=== PATIENT | female | born 1950 | race Caucasian/White ===

== ENCOUNTER 2020-04-24 16:35 | Outpatient (CLI) | payer MEDICARE, SELFPAY ==
--- NOTE | ~2020-04-24 | MM_ITS ---
EXAMINATION: MM screening [facility] BI w cathy HISTORY: Screening TECHNIQUE: Craniocaudal and mediolateral oblique 3-D tomosynthesis images were obtained and synthetic 2-D images were generated. CAD analysis was submitted and interpreted. COMPARISON: Comparison to multiple prior studies sequentially, with oldest reviewed study dated 12/02. BREAST PARENCHYMAL COMPOSITION: There are scattered areas of fibroglandular density. FINDINGS: There is no evidence of suspicious mass, calcification, or architectural distortion to sugg est malignancy in either breast. There has been no suspicious interval change. IMPRESSION: 1. No mammographic evidence of malignancy. 2. Recommend routine screening mammography in one year. BI-RADS Category 2: Benign finding(s). Reviewed, dictated and finalized at location A. STOCK COUNTER
== END 2020-04-24 16:36 | disposition home or self-care (01) ==
PROVIDERS: PCP Physician Assistant; Visit Provider Family Medicine
DX: Z12.31 Encounter for screening mammogram for malignant neoplasm of breast (principal)
CPT/HCPCS: 77063; 77067

== ENCOUNTER 2020-12-27 13:03 | Outpatient (CLI) | payer MEDICARE, SELFPAY ==
--- NOTE | ~2020-12-27 | CT_ITS ---
EXAMINATION: CT lung screening DATE: 12/27/2020 13:24 INDICATION: Personal history of nicotine dependence, current smoker with 30 pack year history TECHNIQUE: Computed tomography (CT) of the chest was performed without intravenous contrast. The dose -length product (DLP) was 304.99 mGy-cm. Automated exposure control and iterative reconstruction tech monEchelle were employed. COMPARISON: None FINDINGS: There is mild emphysema. There are small pulmonary nodules, the largest of which measures 5 mm in the right lower lobe on image 65. There is dependent atelectasis. No focal airspace opacities are identified. There is no pleural effusion or pneumothorax. Calcified coronary artery atheroscleros is is noted. No pathologically enlarged thoracic lymph nodes are identified. The heart size is normal . There is moderate thoracic spondylosis. IMPRESSION: 1. Lung-RADS category 2: Benign appearance or behavior. Continue annual screening with noncontrast lo w-dose chest CT in 12 months. Reviewed, dictated and finalized at location A. IMPRESSION: 1. Lung-RADS category 2: Benign appearance or behavior. Continue annual screeni ng with noncontrast low-dose chest CT in 12 months.
== END 2020-12-27 13:04 | disposition home or self-care (01) ==
PROVIDERS: PCP Family Medicine; Visit Provider Family Medicine
DX: Z12.2 Encounter for screening for malignant neoplasm of respiratory organs (principal); Z87.891 Personal history of nicotine dependence
CPT/HCPCS: 71271

== ENCOUNTER 2022-02-16 14:29 | Outpatient (CLI) | payer MEDICARE, SELFPAY ==
--- NOTE | 2022-02-17 14:16 | P.PCNPFT_ITS ---
PFT Procedure Performed PFT Procedure Performed Plethysmography (Lung Vol) Diffusing Cap (DLCO) Flow Vol Loop Spirometry w/o Bronchodil PFT Interpretation Lung volumes were measured with the body plethysmography method. The elevated FRC and RV are indicative of air trapping. Spirometry showed diminished exp iratory flow rates and a diminished FEV1 to FVC ratio 58%, indicative of obstructive airway disease. No post bronchodilator study carried out. Lung diffusion capacity is moderately reduced at 44% predicted. The flow volume loop is consistent with obstructive airway disease. Impression: Moderate obstructive airway disease with evidence of air trapping. Moderately reduced lung diffusion capacity.
== END 2022-02-16 14:30 | disposition home or self-care (01) ==
PROVIDERS: PCP Family Medicine; Visit Provider Family Medicine
DX: R06.09 Other forms of dyspnea (principal); J44.9 Chronic obstructive pulmonary disease, unspecified; R94.2 Abnormal results of pulmonary function studies
CPT/HCPCS: 94375; 94726; 94729

== ENCOUNTER 2022-02-20 13:17 | Inpatient (IN) | payer MEDICARE, SELFPAY ==
[2022-02-20] VITALS (118 sets, daily range): BP systolic 44–138; BP diastolic 24–97; PULSE 70–112; RESP 14–37; TEMP 36.3; O2SAT 75–100; BMI 33.7
--- NOTE | ~2022-02-20 | US_ITS ---
EXAMINATION: US abdomen limited DATE: 02/22/2022 07:56 INDICATION: Right upper quadrant pain TECHNIQUE: Multiple grayscale and Doppler ultrasound images of the abdomen were obtained. COMPARISON: None available FINDINGS: Bowel gas obscures visualization of the pancreas. The visualized portions of the pancreas a re unremarkable. The liver is normal with normal echogenicity and echotexture. No surface nodularity. Normal hepatopetal flow in the main portal vein. Stones or sludge are present in the gallbladder. Th ere is mild gallbladder wall thickening which measures up to 6 mm. No pericholecystic fluid is identi fied. The normal common bile duct measures 4 mm. There was no sonographic Reyes sign. IMPRESSION: 1. Sludge or stones in the gallbladder with mild gallbladder wall thickening and no additional signs of cholecystitis. Consider nuclear hepatobiliary scan. Reviewed, dictated and finalized at location A. OW AND SIDING CRAFTSMAN IMPRESSION: 1. Sludge or stones in the gallbladder with mild gallbladder wall thickening an d no additional signs of cholecystitis. Consider nuclear hepatobiliary scan.
--- NOTE | ~2022-02-20 | US_ITS ---
EXAMINATION: US renal BI DATE: 02/21/2022 09:12 INDICATION: Acute kidney injury TECHNIQUE: Multiple grayscale and Doppler ultrasound images of the kidneys were obtained. COMPARISON: None. FINDINGS: The right kidney measures 7.9 x 3.9 x 4.5 cm. The left kidney measures 13.0 x 4.7 x 6.9 cm. The kidneys demonstrate normal parenchymal echogenicity. There is no hydronephrosis. The bladder is not distended. IMPRESSION: 1. Moderate atrophy of the right kidney. Reviewed, dictated and finalized at location A. NE SETTER
--- NOTE | ~2022-02-20 | CT_ITS ---
EXAMINATION: CT cervical spine wo con DATE: 02/20/2022 17:16 INDICATION: Fall. TECHNIQUE: Computed tomography (CT) of the cervical spine was performed without intravenous contrast. Automated exposure control and iterative reconstruction technique were employed. The dose-length pro duct was 574.20 mGy-cm. COMPARISON: None FINDINGS: The lung apices demonstrate mild emphysema and mild atelectasis. There is 8 degrees dextroc urvature of cervical spine. There is kyphosis of cervical spine. There is 2 mm retrolisthesis of C5 o n C6. Vertebral body heights are normal. There is moderately decreased disc height at C3-C4, mildly d ecreased disc height at C4-C5, and severely decreased disc height at C5-C6 and C6-C7. The following d isc levels are specifically discussed: C2-C3: There is mild bilateral uncovertebral joint osteoarthritis. There is severe bilateral facet marcela int osteoarthritis. There is mild bilateral neural foraminal stenosis. There is no central canal sten osis. C3-C4: There is severe bilateral uncovertebral joint osteoarthritis. There is severe bilateral facet joint osteoarthritis. There is moderate bilateral neural foraminal stenosis. There is mild central ca nal stenosis. C4-C5: There is severe bilateral uncovertebral joint osteoarthritis. There is mild right and severe l eft facet joint osteoarthritis. There is mild right and moderate left neural foraminal stenosis. Ther e is mild central canal stenosis. C5-C6: There is severe bilateral uncovertebral joint osteoarthritis. There is severe bilateral facet joint osteoarthritis. There is moderate right and mild left neural foraminal stenosis. There is moder ate central canal stenosis. C6-C7: There is severe right and moderate left uncovertebral joint osteoarthritis. There is severe bi lateral facet joint osteoarthritis. There is mild bilateral neural foraminal stenosis. There is mild central canal stenosis. C7-T1: There is mild bilateral uncovertebral joint osteoarthritis. There is severe bilateral facet marcela int osteoarthritis. There is mild bilateral neural foraminal stenosis. There is no central canal sten osis. IMPRESSION: 1. No fracture. 2. Severe cervical spondylosis. Reviewed, dictated and finalized at location A. CTOR MARKETING ANALYTICS
--- NOTE | ~2022-02-20 | XR_ITS ---
EXAMINATION: XR chest port-a-cath/central INDICATION: Hypoxia TECHNIQUE: Portable AP chest at 1444 hours COMPARISON: 04/14/2011 FINDINGS: There are patchy opacities throughout all lung zones. No pleural effusion or pneumothorax. The cardiomediastinal silhouette is normal. A right internal jugular catheter ends with its tip in th e proximal superior vena cava. IMPRESSION: 1. Right internal jugular catheter ending in the proximal superior vena cava. No pneumothorax. 2. Diffuse lung disease, consistent with pneumonia versus atelectasis versus pulmonary edema. Reviewed, dictated and finalized at location B. ETING ACCOUNT MANAGER IMPRESSION: 1. Right internal jugular catheter ending in the proximal superior vena cava. N o pneumothorax. 2. Diffuse lung disease, consistent with pneumonia versus atelectasis versus pu lmonary edema.
--- NOTE | ~2022-02-20 | XR_ITS ---
EXAMINATION: XR chest 1V portable Exam Date/Time: 03/01/2022 8:35 SPLITTER HAND HISTORY: SOB Comparison: 02/25/2022. RESULT: Lines, tubes, and devices: Interval right IJ central line removal. Lungs and pleura: Persistent but improving diffuse reticular opacities. Minimal bibasilar atelectasi s. Senescent changes in the lungs. Cardiomediastinal silhouette: Stable. Other: No acute osseous or upper abdominal finding. IMPRESSION: Improving edema. Reviewed, dictated and finalized at location K. TTER HAND IMPRESSION: Improving edema.
--- NOTE | ~2022-02-20 | NM_ITS ---
EXAMINATION: NM hepatobiliary w pharm DATE: 02/23/2022 13:33 INDICATION: Gallbladder wall thickening. COMPARISON: Abdomen ultrasound 02/21/2022 TECHNIQUE: 5 mCi Tc-99m mebrofenin (Choletec) was administered intravenously. Scintigraphic images o f the abdomen were obtained for one hour. Then, 2.1 mcg sincalide (Kinevac) IV was administered, and imaging was continued for 30 minutes. FINDINGS: There is normal clearance of radiotracer from the blood pool. There is homogeneous tracer u ptake by the liver. Activity progresses to the bowel and gallbladder. Gallbladder ejection fraction (GBEF) was 9%. Note that most patients with gallbladder dysfunction have GBEF < 35%, which overlaps w ith the broad normal range of 10-90%. IMPRESSION: 1. Low gallbladder ejection fraction, consistent with gallbladder dysfunction and/or chronic cholecy stitis. Reviewed, dictated and finalized at location A. SEAT FLAP STAPLER IMPRESSION: 1. Low gallbladder ejection fraction, consistent with gallbladder dysfunction and/or chronic cholecystitis.
--- NOTE | ~2022-02-20 | XR_ITS ---
EXAMINATION: XR chest 1V portable INDICATION: Shortness of breath TECHNIQUE: Portable AP chest at 0753 hours COMPARISON: 02/21/2022 FINDINGS: A right internal jugular central venous catheter ends with its tip in the proximal superior vena cava. Patchy interstitial and airspace opacities are present throughout all lung zones with sli ght interval worsening. No pleural effusion or pneumothorax. The cardiomediastinal silhouette is stab le. IMPRESSION: 1. Diffuse lung disease with interval worsening, consistent with pneumonia and/or pulmonary edema. Reviewed, dictated and finalized at location A. K MACHINE OPERATOR REPAIRER IMPRESSION: 1. Diffuse lung disease with interval worsening, consistent with pneumonia and/ or pulmonary edema.
--- NOTE | ~2022-02-20 | XR_ITS ---
EXAMINATION: XR chest 1V portable INDICATION: Weakness and pneumonia, hypoxia TECHNIQUE: Portable AP chest at 0847 hours COMPARISON: 02/20/2022 FINDINGS: A right internal jugular catheter ends with its tip in the midsuperior vena cava. No pleura l effusion or pneumothorax. Patchy opacities persist throughout all lung zones with slight improvemen t. The cardiomediastinal silhouette is stable. IMPRESSION: 1. Diffuse lung disease with interval improvement, consistent with pneumonia and/or pulmonary edema. Reviewed, dictated and finalized at location A. OR DATA INTEGRATION DEVELOPER IMPRESSION: 1. Diffuse lung disease with interval improvement, consistent with pneumonia an d/or pulmonary edema.
--- NOTE | ~2022-02-20 | XR_ITS ---
EXAMINATION: XR chest 1V portable DATE: 02/25/2022 06:18 INDICATION: Hypoxia. TECHNIQUE: A single frontal view of the chest was obtained. COMPARISON: Chest single view 02/22/2022, 02/20/2022, chest CT 12/27/2020 FINDINGS: There are lucencies in the upper lungs, consistent with emphysema. There is a diffuse inter stitial pattern in the lungs, consistent with mild pulmonary edema. There is a small right pleural ef fusion. No pneumothorax. The heart size is normal. A right internal jugular central venous catheter i s seen with tip in the superior vena cava. IMPRESSION: 1. Mild pulmonary edema. 2. Small right pleural effusion. 3. Emphysema. Reviewed, dictated and finalized at location A. ER [place]
--- NOTE | ~2022-02-20 | CT_ITS ---
EXAMINATION: CT brain wo con DATE: 02/20/2022 17:16 INDICATION: Fall. TECHNIQUE: Computed tomography (CT) of the head was performed without intravenous contrast. The mA wa s adjusted according to patient size. Iterative reconstruction technique was employed. The dose-lengt h product was 832.33 mGy-cm. COMPARISON: None FINDINGS: There is an old infarct involving left parietal lobe. There is no intracranial hemorrhage, acute infarction, or abnormal intracranial mass lesion. There is old infarct in left caudate nucleus. The ventricles are normal in size. There is mild mucosal thickening in the paranasal sinuses. The ma stoid air cells are normal. There are likely changes of ocular lens replacement surgeries. IMPRESSION: 1. 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 Reviewed, dictated and finalized at location A. GHT CLERK
--- NOTE | 2022-02-20 13:34 | ECG_ITS ---
Measurements Intervals [place] Rate: 86 P: 72 SD: 283 QRS: 70 QRSD: 97 T: 55 QT: 397 QTc: 476 Interpretive Statements SINUS RHYTHM WITH FIRST DEGREE AV BLOC INCOMPLETE RIGHT BUNDLE BRANCH BLOCK BORDERLINE ST ABNORMALITY- ANTEROLATERAL LEADS BASELINE ARTIFACT- I, II, III, AVR, AVL ABNORMAL ECG NO PREVIOUS ECG AVAILABLE FOR COMPARISON Electronically Signed On 02-20-2022 16:22:48 GLASS MAKER by John Sherman D.O.
--- NOTE | 2022-02-20 13:37 | ED.WEAKNESS ---
HPI - Weakness General Chief complaint: Weakness Stated complaint: gen weakness, sob, decrease po intake History of Present Illness HPI Narrative: This is a 71-year-old female with past medical history of carotid artery stenosis, brought in by EMS for weakness. Patient states she has felt generally weak for the past 2 days without chest pain or focal weakness of an arm or leg. She complains of shortness of breath and intermittent cough productive of mucus without blood. She states she rolled out of bed and was unable to get up from the floor several hours ago. She states she is vaccinated for COVID and flu and has had no known sick contacts. Related Data Home Medications Medication Instructions Recorded Confirmed glucosamine sulfate 2KCl 1,000 mg 1,000 mg PO BID 02/19/20 02/04/22 capsule ibuprofen 200 mg tablet (Advil) 200 mg PO Q6H PRN 02/19/20 02/04/22 glucosamine-chondroitin 250 mg-200 2 tablet PO TID 06/27/20 02/04/22 mg tablet (Osteo Bi-Flex) docusate sodium 50 mg capsule 50 mg PO DAILY 02/04/22 02/04/22 (Stool Softener) Allergies Allergy/AdvReac Type Severity Reaction Status Date / Time No Known Allergies Allergy Verified 02/20/22 13:34 Review of Systems Review of Systems: CONSTITUTIONAL: Subjective fevers and chills denies sweats. EYES: Denies visual changes, redness, or discharge. ENT: rhinorrhea, Denies congestion, sore throat, or otalgia. CARDIOVASCULAR: Denies chest pain, palpitations, or edema. RESPIRATORY: cough and dyspnea. GASTROINTESTINAL: Denies abdominal pain, nausea, vomiting, or diarrhea. GENITOURINARY: Denies dysuria or hematuria. SKIN: Denies rash or itching. MUSCULOSKELETAL: Generalized myalgias denies back pain, joint pain NEUROLOGIC: Generalized weakness denies headache, numbness, dizziness PSYCHIATRIC: Denies anxiety or depression. 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 Depression Diabetes mellitus Hx-TIA (transient ischemic attack) Hypercholesterolemia Hypertension Hyponatremia Obesity (BMI 30-39.9) ELEANOR (obstructive sleep apnea) Osteopenia Smoker Urinary, incontinence, stress female Surgical History Surgical History History of appendectomy History of cataract extraction both History of left-sided carotid endarterectomy 2000 Family History Family History Father Family history of heart disease in male family member before age 55 Other Cerebrovascular accident Family history of coronary artery disease Family history of lung cancer Social History Social History Smoking status: Current every day smoker (1ppd for 23 years) Tobacco type: cigarettes Second hand tobacco smoke exposure: Yes Alcohol intake: never Substance use: never Substance use type: does not use Gender identity (if verbalized by the patient): Female Sexual Orientation (if Verbalized by the Patient): Straight or Heterosexual Spiritual care concerns: Yes (Buddhist) Agree to blood products: Yes Exam Narrative: GENERAL: Well-developed, well-nourished, appears fatigued. HEAD: Normocephalic, atraumatic. EYES: PERRLA and EOMI. ENT: Nares clear, no rhinorrhea or epistaxis. Mucous membranes dry. Oropharynx without tonsillar hypertrophy exudate or other lesions. NECK: Supple. No adenopathy or masses. No carotid bruits or JVD CHEST: Expiratory wheeze bilaterally. No respiratory distress. No rales or rhonchi HEART: Regular rate and rhythm. No murmur heard. Normal peripheral pulses. ABDOMEN: Soft, umbilical hernia with normal overlying skin, nontender, nondistended, normal active bowel sounds. EXTREMITIES: Normal range of motion. No stacy
[2022-02-20] MEDS: ALBUTEROL SULFATE NEB 2.5 MG/3 ML INH 5 MG INHALATION (13:53)
[2022-02-20 14:09] LABS: Basophils Absolute Auto 0.1 K/mm3 (0.0-0.1); Basophils Percent Auto 0.4 % (0.2-1.2); Eosinophils Absolute Auto 0.2 K/mm3 (0-0.3); Hematocrit 42.7 % (37.0-47.0); Hemoglobin 13.4 g/dL (12.0-15.0); Immature Granulocyte Absolute 0.62 K/mm3 (0.00-0.031); Lymphocytes Absolute Auto 0.75 K/mm3 (0.9-3.2); Lymphocytes Percent Auto 3.6 % (18.3-44.2); Mean Corpuscular HGB Conc 31.4 g/dl (32-36); Mean Corpuscular Hemoglobin 24.6 pg (26-34); Mean Corpuscular Volume 78.3 fl (80-100); Mean Platelet Volume 9.1 fl (7.4-10.4); Monocytes Absolute Auto 1.3 K/mm3 (0.1-0.6); Monocytes Percent Auto 6.3 % (2.6-8.5); Neutrophils Absolute Auto 17.7 K/mm3 (1.3-6.7); Neutrophils Percent Auto 85.7 % (45.5-73.1); Platelet Count Result 338 k/mm3 (150-375); Red Blood Count 5.45 M/mm3 (4.2-5.4); Red Cell Distribution Width 18.5 % (11.5-14.5); White Blood Count 20.7 K/mm3 (4.5-10.0)
[2022-02-20 14:19] LABS: Lactic Acid Reflex 3.5 mmol/L (0.7-2.0)
[2022-02-20 14:20] LABS: Alanine Aminotransferase 23 U/L (6-35); Alkaline Phosphatase 91 U/L (38-126); Anion Gap 14 mmol/L (8-16); Aspartate Amino Transferase 58 U/L (14-36); Bilirubin,Total 0.8 mg/dL (0.2-1.3); Blood Urea Nitrogen 25 mg/dL (7-17); Calcium 9.1 mg/dL (8.4-10.2); Carbon Dioxide 19 mmol/L (22-30); Chloride 96 mmol/L (98-107); Creatine Kinase 1305 U/L (30-135); Estimated CRCL calculation 19 ml/min; Estimated Glomerular Filt Rate 15; Glucose 114 mg/dL (65-110); Potassium 3.4 mmol/L (3.4-5.0); Sodium 129 mmol/L (137-145)
[2022-02-20] MEDS: NOREPINEPHRINE 8 MG/D5W 250 ML 8 MG/250 ML BAG 1.88 MG IV CONT (14:50)
[2022-02-20] MEDS: SODIUM CHLORIDE 0.9% IV 1,000 ML 999 ML IV CONT ×2 (15:00→15:12)
[2022-02-20] MEDS: VASOPRESSIN INJ 100 UNITS in DEXTROSE 5% 95 ML IV CONT (15:38)
[2022-02-20 15:54] LABS: Influenza A QL RT-PCR Negative (Negative); Influenza B QL RT-PCR Negative (Negative); SARS-CoV-2 RNA PCR Negative
--- NOTE | 2022-02-20 16:59 | PC.NURSE ---
Patient off unit to CT. BP consistently greater than 90 systolic.
[2022-02-20 17:05] LABS: Reflex Lactic Acid Yes or No Add Lactic
[2022-02-20 18:47] LABS: Appearance Urine Cloudy (Clear); Bilirubin Urine Negative (Negative); Blood Urine 3+ (Negative); Color Urine Yellow (Yellow); Glucose Urine UA Negative (Negative); Ketones Urine Negative (Negative); Leukocyte Esterase Ur 3+ LEU/UL (Negative); Nitrate Urine Negative (Negative); Protein Urine 3+ mg/dL (Negative); Specific Grav Ur 1.015 (1.001-1.035); Urobilinogen Urine 0.2 mg/dL (<2.0)
[2022-02-20 18:53] LABS: Bacteria Urine Trace /hpf; Hyaline Casts Urine 15-19 /lpf; Mucus Urine Rare /lpf; RBC Urine 51-75 /hpf (0-2); WBC Clumps Urine Present /HPF; WBC Urine >75 /hpf
[2022-02-20 18:54] LABS: Lactic Acid 3.2 mmol/L (0.7-2.0)
[2022-02-20 18:59] LABS: Add Urine Microscopic? YES
--- NOTE | 2022-02-20 20:51 | PM.IMHP ---
H&P: HPI History of Present Illness Date/Time: 02/20/22 20:51 Chief Complaint: Weakness Narrative: This is a 71-year-old female patient who was brought in for generalized weakness and shortness of breath as well as the decreased oral intake. The patient has been feeling weak for the last 2 days. She has had a cough. The patient rolled out of bed was unable to get up off the floor for several hours. Her white count was 20.7. Sodium 129. Chloride 96. BUN and creatinine 25 and 3.0. Her GFR is 15. Her baseline is typically 1.13. Her lactic initially was 3.5 and is now 3.2. Total creatinine kinase 1305. Troponin 5.490 and repeat troponin 2.460. Her urine appears infected. She was negative for influenza A/B and COVID. A central line was placed in the emergency room. She was started on Levophed as well as vasopressor. The patient was given 3 L of IV fluids. Azithromycin and Rocephin. The patient is awake and talking. Director Federal has been consulted. And cardiology has been consulted for the elevated troponins. EKG was read as the following SINUS RHYTHM WITH FIRST DEGREE AV BLOC INCOMPLETE RIGHT BUNDLE BRANCH BLOCK BORDERLINE ST ABNORMALITY- ANTEROLATERAL LEADS BASELINE ARTIFACT- I, II, III, AVR, AVL ABNORMAL ECG NO PREVIOUS ECG AVAILABLE FOR COMPARISON Electronically Signed On 02-20-2022 16:22:48 OTOLARYNGOLOGIST by John Sherman? Cervical spine CT read as no fracture. Severe cervical spondylosis. 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 Chest x-ray shows right internal jugular catheter ending in the proximal superior vena cava. No pneumothorax. Diffuse lung disease consistent with pneumonia versus atelectasis versus pulmonary edema. The patient is being admitted to ICU as inpatient status date of service is 02/20/2022. Review of Systems Review of Systems: See HPI All systems reviewed & are unremarkable except as noted in HPI and below Constitutional: Constitutional: Reports as per HPI and Reports no additional constitutional complaints Eyes: Eyes: Reports as per HPI and Reports no additional eye complaints ENT: Reports system reviewed and no additional complaints, except as documented and Reports Normal hearing present Cardiovascular: Cardiovascular: Reports no additional cardiovascular complaints Respiratory: Respiratory: Reports no additional respiratory complaints and Reports no additional respiratory complaints Gastrointestinal: Gastrointestinal: Reports as per HPI and Reports no additional gastrointestinal complaints Musculoskeletal: Musculoskeletal: Reports no additional musculoskeletal complaints Integumentary/Breasts: Skin/Breast: Reports system reviewed and no additional complaints, except as docu and Reports as per HPI Neurologic: Reports system reviewed and no additional complaints, except as documented, Reports as per HPI and Reports Normal hearing present Psychiatric: Psychiatric: Reports no additional psychiatric complaints and Reports as per HPI Endocrine: Endocrine: Reports no additional endocrine complaints Hematologic/Lymphatic: Hematologic/Lymphatic: Reports no additional hematologic/lymphatic complaints Allergic/Immunologic: Allergic/Immunologic: Reports no additional allergic/immunologic complaints [facility] Past Medical History Medical History Anxiety Carotid arterial disease Chronic renal insufficiency, stage III (moderate) 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
--- NOTE | 2022-02-20 21:45 | ADMGEN ---
This patient, Cassidy Paris, was admitted to Intensive Care Unit-3. Patient/family oriented to hospital policies and general routines including ID bracelet, bed and alarms, visiting hours, pain management, procedures, bathroom and other care routines, personal items, smoking policy, room service/diet, and visiting hours. Information on how to activate the Rapid Response Team has been discussed. Patient/Family are encouraged to report perceived risks to care and to ask questions if they do not understand what they are told or what they should do.
[2022-02-21] VITALS (84 sets, daily range): BP systolic 85–142; BP diastolic 37–94; PULSE 80–110; RESP 18–38; TEMP 36.4–36.9; O2SAT 74–100
--- NOTE | 2022-02-21 | ECHO_ITS ---
Patient Info Name: Cassidy Paris Age: 71 years : 1950 Gender: Female Ht: 67 in Wt: 217 lbs BSA: 2.19 m2 HR: 88 bpm BP: 102 / 45 mmHg Heart Rhythm: Sinus Rhythm Technical Quality: Poor Exam Date: 02/21/2022 10:36 AM Exam Location: [facility] Pulmonary Exam Room: ICU3 Patient Status: Inpatient Admit Date: 02/20/2022 Staff Ordering Physician: Howard Kern MD Building Estimator: Janice Guevara RDCS Attending Provider: Karime Burrell MD Exam Type: CA echo dop color flow w con Study Info Complete two-dimensional, color flow and Doppler transthoracic echocardiogram is performed with contrast to opacify the left ventricle and to improve the deliniation of the left ventricle endocardial borders. Contrast/Agitated Saline Contrast/Ag. Saline: Definity Amount: 2.00 ml Administered By: Janice Guevara [facility] Existing IV Access: Yes IV Access Condition: patent with no signs of infiltration Reason for Poor Study: patient body habitus Summary 1. Technically difficult this examination because of patient obesity/definity contrast used. 2. Vigorous left ventricular systolic function with grade 1 diastolic noncompliance. 3. No ischemic wall motion abnormalities were identified. 4. Mildly sclerotic aortic valve which is not stenotic. Left Ventricle Left ventricular chamber dimension is normal. Left ventricular systolic function is hyperdynamic, estimated at >70%. There is mild concentric increased left ventricular wall thickness. The left ventricular diastolic function is grade I diastolic dysfunction. Right Ventricle Right ventricular chamber dimension is normal. Left Atria Left atrial chamber dimension is mildly enlarged. Right Atria Right atrial chamber dimension is not well visualized. Aortic Valve The aortic valve is trileaflet. There is mild aortic valve sclerosis. Pulmonic Valve The pulmonic valve is not well visualized. Mitral Valve The mitral valve has normal leaflets. Tricuspid Valve The tricuspid valve leaflets are not well visualized. Pericardium/Pleural The pericardium appears normal. Aorta The aortic root size at the sinus of Valsalva is normal. Left Ventricular Outflow Tract Name Value Normal LVOT 2D LVOT Diameter 2.08 cm LVOT Doppler LVOT Peak Gradient 7 mmHg LVOT Mean Gradient 5 mmHg LVOT VTI 24.90 cm LVOT VTI/AV VTI Ratio 0.62 LVOT Stroke Volume 84.44 ml LVOT CO 20.96 l/min LVOT CI 9.56 L/min/m2 Pulmonic Valve Name Value Normal PV Doppler PV Peak Gradient 3 mmHg Mitral Valve
[2022-02-21] MEDS: SODIUM CHLORIDE 0.9% IV 1,000 ML 999 ML IV CONT (00:17)
[2022-02-21] MEDS: SODIUM CHLORIDE 0.9% IV 1,000 ML 100 ML IV CONT ×2 (00:17→13:01)
[2022-02-21] MEDS: IPRATROPIUM BR 0.02% INH SOLN 0.5 MG/2.5 ML VIAL INHALATION ×4 (03:23→20:50)
[2022-02-21] MEDS: ALBUTEROL SULFATE NEB 2.5 MG/3 ML INH INHALATION ×4 (03:24→20:50)
[2022-02-21 04:39] LABS: Hematocrit 35.1 % (37.0-47.0); Hemoglobin 11.3 g/dL (12.0-15.0); Mean Corpuscular HGB Conc 32.2 g/dl (32-36); Mean Corpuscular Hemoglobin 24.7 pg (26-34); Mean Corpuscular Volume 76.8 fl (80-100); Platelet Count Result 257 k/mm3 (150-375); Red Blood Count 4.57 M/mm3 (4.2-5.4); Red Cell Distribution Width 17.9 % (11.5-14.5)
[2022-02-21 04:52] LABS: Alanine Aminotransferase 28 U/L (6-35); Albumin Level 3.1 g/dL (3.5-5.1); Alkaline Phosphatase 79 U/L (38-126); Anion Gap 9 mmol/L (8-16); Aspartate Amino Transferase 113 U/L (14-36); Bilirubin,Total 0.5 mg/dL (0.2-1.3); Blood Urea Nitrogen 30 mg/dL (7-17); Calcium 7.8 mg/dL (8.4-10.2); Carbon Dioxide 18 mmol/L (22-30); Chloride 101 mmol/L (98-107); Estimated CRCL calculation 20 ml/min; Estimated Glomerular Filt Rate 17; Glucose 128 mg/dL (65-110); Magnesium 1.7 mg/dL (1.6-2.3); Potassium 3.9 mmol/L (3.4-5.0); Sodium 128 mmol/L (137-145)
[2022-02-21 04:56] LABS: Hemoglobin A1C 6.8 % (<5.7)
[2022-02-21 04:57] LABS: Lactic Acid Reflex 1.3 mmol/L (0.7-2.0)
[2022-02-21 05:21] LABS: Platelet Estimate Adequate (Adequate)
[2022-02-21 05:22] LABS: Burr Cells 1+ (NORMAL); Hypochromasia 1+ (NORMAL); Microcytosis 1+ (NORMAL); Schistocytes None Seen (NORMAL)
[2022-02-21 05:23] LABS: Anisocytosis 1+ (NORMAL); Band Neutrophils Percent 17 % (0-6); Lymphocytes Absolute Manual 0.44 K/mm3 (1.1-4.5); Lymphocytes Percent Manual 2 % (18-44); Monocytes Percent Manual 5 % (3-9); Neutrophils Absolute Manual 20.46 K/mm3 (1.7-7.2); Neutrophils Percent Manual 76 % (46-73); Total Cells Counted 100
[2022-02-21 08:25] LABS: Glucose Point of Care 156 mg/dl (65-105)
--- NOTE | 2022-02-21 09:21 | WPDCNINT ---
Assessment and Plan Assessment and plan (1) Septic shock: Code(s): A41.9 - Sepsis, unspecified organism; R65.21 - Severe sepsis with septic shock Status: Acute Assessment and Plan: Septic shock secondary to UTI and possible community-acquired pneumonia Urine and blood cultures have been sent Check urine Legionella pneumococcal antigen Check mycoplasma IgM Continue empiric vancomycin Rocephin and azithromycin Continue Levophed titration Add 25% albumin Continue IV fluids at this time but will limit to prevent any volume overload Obtain echocardiogram Check BNP level (2) Pneumonia: Code(s): J18.9 - Pneumonia, unspecified organism Status: Acute Assessment and Plan: See above (3) Urinary tract infection: Code(s): N39.0 - Urinary tract infection, site not specified Status: Acute Assessment and Plan: See above (4) Acute kidney injury: Code(s): N17.9 - Acute kidney failure, unspecified Status: Acute Assessment and Plan: Patient has baseline chronic kidney disease but presented elevated creatinine which is likely combination of septic shock, hypovolemia rhabdomyolysis and possible secondary to NSAIDs Check urine electrolytes Monitor CK level Renal ultrasound is pending Continue cautious IV fluids Monitor urine output electrolytes and creatinine (5) Chronic renal insufficiency, stage III (moderate): Code(s): N18.30 - Chronic kidney disease, stage 3 unspecified Status: Acute Assessment and Plan: See above (6) Elevated troponin: Code(s): R77.8 - Other specified abnormalities of plasma proteins Status: Acute Assessment and Plan: Elevated troponin likely demand mediated ischemia with elevated creatinine Troponins are trending down EKG reviewed Cardiology has been consulted Check echocardiogram Continue aspirin and Plavix Add Lipitor (7) Tobacco abuse: Code(s): Z72.0 - Tobacco use Status: Acute Assessment and Plan: Patient was counseled and encouraged to quit smoking (8) Fall: Code(s): W19.XXXA - Unspecified fall, initial encounter Status: Acute Assessment and Plan: Head CT 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 CT C-spineIMPRESSION: 1. No fracture. 2. Severe cervical spondylosis. (9) COPD exacerbation: Code(s): J44.1 - Chronic obstructive pulmonary disease with (acute) exacerbation Status: Acute Assessment and Plan: On exam patient is wheezing on both sides. She does have history of smoking and likely has COPD Continue bronchodilators Short course of prednisone Antibiotics as above (10) Abdominal pain: Code(s): R10.9 - Unspecified abdominal pain Status: Acute Assessment and Plan: Patient tender right upper quadrant exam although she denies any abdominal pain prior to coming to the hospital LFTs unremarkable Check lipase Check upper quadrant ultrasound (11) Diabetes mellitus: Code(s): E11.9 - Type 2 diabetes mellitus without complications Status: Acute Assessment and Plan: Sliding scale insulin Plan DVT prophylaxis - Lovenox Nutrition -diet Code Status - Full Code Total Critical Care Time - 35 minutes Due to a high probability of clinically significant, life threatening deterioration, the patient required my highest level of preparedness to intervene emergently and I personally spent this critical care time directly and personally managing the patient. This critical care time included obtaining a history; examining the patient; pulse oximetry; ordering and review of studies; arranging urgent treatment with development of a management plan; evaluation of patient's response to treatment; frequent reassessment; and discussions with other providers. It was exclusive of separately billable procedures and treating other patients and teaching time. Please see Assessment and Plan sect
[2022-02-21] MEDS: TOLNAFTATE 1% POWDER 45 GM BTL 1 APPLIC TOPICAL ×2 (09:23→20:22)
[2022-02-21] MEDS: SERTRALINE HCL 50 MG TABLET 100 MG PO (09:23)
[2022-02-21] MEDS: NICOTINE (*PBKC) 14 MG PATCH 1 PATCH TRANSDERM (09:23)
[2022-02-21] MEDS: BETAMETHASONE/CLOTRIMAZOLE CR 15 GM TUBE 1 APPLIC TOPICAL ×2 (09:23→17:03)
[2022-02-21] MEDS: CLOPIDOGREL BISULFATE 75 MG TABLET PO (09:23)
[2022-02-21] MEDS: ASPIRIN 81 MG ENTERIC TABLET PO (09:24)
[2022-02-21] MEDS: CALCIUM GLUC 2,000 MG/NS 100ML 2,000 MG/100 ML BAG 100 MG IVPB (09:27)
[2022-02-21 10:40] LABS: Lipase < 10 U/L (23-300)
[2022-02-21 10:45] LABS: NT Pro B Type Natriuretic Pept 15800 pg/mL (5-100)
[2022-02-21] MEDS: PERFLUTREN LIPID MICROSPHERES 1.5 ML VIAL DILUTED TO 10 ML TOTAL VOLUME IV PUSH (11:00)
--- NOTE | 2022-02-21 11:01 | IVDEFINITY ---
Prior to administration of IV Definity the patient was educated on the risks and benefits of the imaging enhancing agent including potential adverse side effects. The patient verbalized understanding. Allergies were verified. No exclusion criteria were identified and at least one of the following inclusion criteria were met: 1) physician request, 2) patient technically difficult to image (per the [place] [employer] guidelines of two or more segments not discernable within the apical view), or 3) questionable left ventricular function. ?
--- NOTE | 2022-02-21 12:21 | PM.CNNEP ---
Assessment and Plan Assessment and plan (1) Acute kidney injury: Code(s): N17.9 - Acute kidney failure, unspecified Status: Acute Assessment and Plan: likely due to sepsis, shock, hypovolemia, rhabdo, and high dose NSAID use if an element of AIN, already getting steroids (for her suspected COPD) follow-up on urine electrolytes and CKP levels check urine eosinophils follow-up on renal ultrasound IVF trial but follow UOP and respiratory status follow repeat labs (2) Stage 3a chronic kidney disease: Code(s): N18.31 - Chronic kidney disease, stage 3a Status: Chronic Assessment and Plan: creatinine seems to run ~ 1.0 - 1.2mg/dl since March 2020 likely due to HTN, diabetes, vascular disease, age, and recurrent UTIs (3) Septic shock: Code(s): A41.9 - Sepsis, unspecified organism; R65.21 - Severe sepsis with septic shock Status: Acute Assessment and Plan: presumably from UTI and possibly pneumonia follow urine and blood cultures on empiric antibiotics fluid resuscitation as tolerated by respiratory status continue vasopressor therapy and wean as tolerated (4) COPD exacerbation: Code(s): J44.1 - Chronic obstructive pulmonary disease with (acute) exacerbation Status: Acute Assessment and Plan: suspected by wheezing on exam and smoking history on bronchodilators and prednisone already on antibiotics as well (5) Elevated troponin: Code(s): R77.8 - Other specified abnormalities of plasma proteins Status: Acute Assessment and Plan: most likely secondary to shock and sepsis in setting of JUVENAL however, cannot discount ischemic heart disease follow-up on Echo Cardiology consulted (6) Fall: Code(s): W19.XXXA - Unspecified fall, initial encounter Status: Acute Assessment and Plan: imaging noted Head CT without an acute pathology CT C-spine without fractures PT/OT when more stable . (7) Diabetes mellitus: Code(s): E11.9 - Type 2 diabetes mellitus without complications Status: Acute Assessment and Plan: follow accucheks glycemic control Will continue to follow. History of Present Illness Reason for Consult Consult date: 02/21/22 Reason for consult: acute renal failure (on chronic kidney disease) Chief Complaint Chief complaint: Pneumonia, sepsis History of Present Illness Narrative: The patient is a 71-year-old female with a past medical history as outlined below who presented to [facility] Emergency room yesterday for further evaluation of weakness. The patient apparently lost her balance and fell out of bed but did not lose consciousness. She did feel dizzy for last few days prior to this event however. After she had the fall, she was unable to get up from the floor. Her family tried to his sister but with difficulty so they called 911 for further assistance and she was subsequently brought to the emergency room for further assessment. Workup and evaluation emergency room demonstrated the patient be quite hypotensive. She was given aggressive IV fluid resuscitation but her blood pressure did not respond and hence a central line was placed and she was started on vasopressor therapy. Appropriate cultures were obtained on the concerns of possible sepsis and she was started on broad-spectrum IV antibiotic therapy. Upon further questioning to the patient, she also reports some mild cough with minimal sputum production but no reported fevers or chills. She did also state that she has had some burning with urination but no change in her urine output. She had been taking significant NSAID therapy for her degenerative joint disease/ arthritis as well. She was subsequently admitted to the ICU for further evaluation and therapy. Since her admission, the patient reports feeling significantly better. She had been on both Levophed as well as the vasopre
--- NOTE | 2022-02-21 12:21 | P.CONNP_ITS ---
Assessment and Plan Assessment and plan (1) Acute kidney injury: Code(s): N17.9 - Acute kidney failure, unspecified Status: Acute Assessment and Plan: * likely due to sepsis, shock, hypovolemia, rhabdo, and high dose NSAID use * if an element of AIN, already getting steroids (for her suspected COPD) * follow-up on urine electrolytes and CKP levels * check urine eosinophils * follow-up on renal ultrasound * IVF trial but follow UOP and respiratory status * follow repeat labs (2) Stage 3a chronic kidney disease: Code(s): N18.31 - Chronic kidney disease, stage 3a Status: Chronic Assessment and Plan: * creatinine seems to run ~ 1.0 - 1.2mg/dl since March 2020 * likely due to HTN, diabetes, vascular disease, age, and recurrent UTIs (3) Septic shock: Code(s): A41.9 - Sepsis, unspecified organism; R65.21 - Severe sepsis with septic shock Status: Acute Assessment and Plan: * presumably from UTI and possibly pneumonia * follow urine and blood cultures * on empiric antibiotics * fluid resuscitation as tolerated by respiratory status * continue vasopressor therapy and wean as tolerated (4) COPD exacerbation: Code(s): J44.1 - Chronic obstructive pulmonary disease with (acute) exacerbation Status: Acute Assessment and Plan: * suspected by wheezing on exam and smoking history * on bronchodilators and prednisone * already on antibiotics as well (5) Elevated troponin: Code(s): R77.8 - Other specified abnormalities of plasma proteins Status: Acute Assessment and Plan: * most likely secondary to shock and sepsis in setting of JUVENAL * however, cannot discount ischemic heart disease * follow-up on Echo * Cardiology consulted (6) Fall: Code(s): W19.XXXA - Unspecified fall, initial encounter Status: Acute Assessment and Plan: * imaging noted * Head CT without an acute pathology * CT C-spine without fractures * PT/OT when more stable . (7) Diabetes mellitus: Code(s): E11.9 - Type 2 diabetes mellitus without complications Status: Acute Assessment and Plan: * follow accucheks * glycemic control Will continue to follow. History of Present Illness Reason for Consult Consult date: 02/21/22 Reason for consult: acute renal failure (on chronic kidney disease) Chief Complaint Chief complaint: Pneumonia, sepsis History of Present Illness Narrative: The patient is a 71-year-old female with a past medical history as outlined below who presented to [facility] Emergency room yesterday for further evaluation of weakness. The patient apparently lost her balance and fell out of bed but did not lose consciousness. She did feel dizzy for last few days prior to this event however. After she had the fall, she was unable to get up from the floor. Her family tried to his sister but with difficulty so they called 911 for further assistance and she was subsequently brought to the emergency room for further assessment. Workup and evaluation emergency room demonstrated the patient be quite hypotensive. She was given aggressive IV fluid resuscitation but her blood pressure did not respond and hence a central line was placed and she was started on vasopressor therapy. Appropriate cultures were obtained on the concerns of possible sepsis and she was started on broad-spectrum IV antibiotic therapy. Upon further questioning to the patient, she also reports some mild cough with minimal sputum production but no reported
[2022-02-21 12:31] LABS: Glucose Point of Care 175 mg/dl (65-105)
[2022-02-21] MEDS: methylPREDNISolone SOD SUCC 125 MG VIAL 60 MG IV PUSH (13:00)
[2022-02-21] MEDS: ATORVASTATIN 10 MG TABLET PO (13:00)
[2022-02-21] MEDS: ALBUMIN HUMAN 25% 25 GM/100 ML 100 ML IVPB ×2 (13:03→17:03)
--- NOTE | 2022-02-21 13:23 | PM.CNCAR ---
Assessment and Plan Assessment and plan (1) Septic shock: Code(s): A41.9 - Sepsis, unspecified organism; R65.21 - Severe sepsis with septic shock Status: Acute (2) Elevated troponin: Code(s): R77.8 - Other specified abnormalities of plasma proteins Status: Acute Plan this is a 71-year-old woman known to have peripheral vascular disease admitted to the hospital with severe weakness inability to get up off the floor irnee hypotension and clinical diagnosis of sepsis. She has acute on chronic renal failure and significantly elevated troponin levels but no symptoms or ECG findings to be consistent with an acute coronary syndrome. She is currently being treated with aspirin clopidogrel and statin therapy which is appropriate. She hemodynamically she it at this time cannot receive a beta-reyes or an ARB. We will follow her with you and depending on her recovery and recovery of her renal function we will need to consider ischemia evaluation when she is more stable to undergo testing. Echocardiogram was appropriately done earlier today results of that are pending. Shiva Marie MD [facility] History of Present Illness History of Present Illness Consult date/time: 02/21/22 13:23 Reason For Visit: Pneumonia, sepsis Narrative: this is a 71-year-old woman I am seeing at the request of the hospitalist as /ER staff after she was seen there last night in the setting of severe hypotension and weakness and found to have elevated troponin levels. The patient is in the ICU she is free of significant complaints at this time and is visiting family members. The patient has a very strange presentation she indicates that she was feeling poorly yesterday morning when she was very weak in her home she fell out of her bed could get up off the floor in her bedroom. She was not having any sense of chest pain pressure or heaviness. She does felt so weak she could not stand upper get up off the floor. Eventually an ambulance was called after she was on the floor for several hours and brought her to the emergency room for evaluation upon arrival here she was found to be frankly hypotensive with systolic blood pressures in the 60s she was again not describing any chest pain her electrocardiogram showed sinus rhythm with first-degree AV block but no significant ST or T-wave abnormalities. She was placed on IV fluids pressors and antibiotics with improvement in her blood pressure and admitted to the ICU. In this setting troponin levels were sampled and they were significantly elevated with a troponin of over 5 and then declining to about 2.5 on the 2nd 2 samples. She is not known to have any cardiac problems in the past she is known to have peripheral vascular disease with a left carotid endarterectomy a long time ago. She has hypertension and chronic kidney disease and follows with her primary care, Dr. Allred she also has diabetes. Her laboratory data on admission here is also remarkable for acute on chronic renal insufficiency her creatinine looks like it normally runs about 1.2 and it is up to 3.0 upon arrival here. Review of Systems Constitutional: Constitutional: Reports lethargy Eyes: Eyes: Reports no additional eye complaints Cardiovascular: Cardiovascular: Reports no additional cardiovascular complaints Respiratory: Respiratory: Reports no additional respiratory complaints Gastrointestinal: Gastrointestinal: Reports no additional gastrointestinal complaints Musculoskeletal: Musculoskeletal: Reports no additional musculoskeletal complaints Integumentary/Breasts: Skin/Breast: Reports system reviewed and no additional complaints, except as docu Neurologic: Reports system reviewed and no additional complaints, except as documented Endocrine: Endocrine: Reports no additional endocrine complaints Hematologic/Lymphatic: Hematologic/Lymphatic: Reports no additional hematologic/lymphatic complaints Allergic/Immunologic: Allergic/
[2022-02-21 17:01] LABS: Glucose Point of Care 190 mg/dl (65-105)
[2022-02-21] MEDS: NOREPINEPHRINE 8 MG/D5W 250 ML 8 MG/250 ML BAG 3.75 MG IV CONT (17:08)
--- NOTE | 2022-02-21 18:26 | ECG_ITS ---
Measurements Intervals [place] Rate: 82 P: NV: 0 QRS: 74 QRSD: 98 T: 23 QT: 377 QTc: 442 Interpretive Statements ATRIAL FIBRILLATION INCOMPLETE RIGHT BUNDLE BRANCH BLOCK BORDERLINE ST-T WAVE ABNORMALITY- ANTEROLAT/INF LEADS ABNORMAL ECG COMPARED TO ECG 02/20/2022 15:05:34 ATRIAL FIBRILLATION NOW PRESENT Electronically Signed On 02-23-2022 7:40:53 INTERCEPTOR OPERATOR by John Sherman D.O.
[2022-02-21 20:30] LABS: Glucose Point of Care 199 mg/dl (65-105)
[2022-02-22] VITALS (26 sets, daily range): BP systolic 98–144; BP diastolic 49–104; PULSE 59–100; RESP 16–31; TEMP 36.1–36.7; O2SAT 94–100
[2022-02-22] MEDS: ALBUMIN HUMAN 25% 25 GM/100 ML 100 ML IVPB ×2 (00:18→05:57)
[2022-02-22] MEDS: IPRATROPIUM BR 0.02% INH SOLN 0.5 MG/2.5 ML VIAL INHALATION ×4 (02:10→20:19)
[2022-02-22] MEDS: ALBUTEROL SULFATE NEB 2.5 MG/3 ML INH INHALATION ×4 (02:10→20:19)
[2022-02-22 04:43] LABS: Hematocrit 32.1 % (37.0-47.0); Hemoglobin 10.1 g/dL (12.0-15.0); Mean Corpuscular HGB Conc 31.5 g/dl (32-36); Mean Corpuscular Hemoglobin 24.8 pg (26-34); Mean Corpuscular Volume 78.9 fl (80-100); Mean Platelet Volume 9.3 fl (7.4-10.4); Platelet Count Result 224 k/mm3 (150-375); Red Blood Count 4.07 M/mm3 (4.2-5.4); Red Cell Distribution Width 18.2 % (11.5-14.5); White Blood Count 14.8 K/mm3 (4.5-10.0)
[2022-02-22 04:53] LABS: Alanine Aminotransferase 27 U/L (6-35); Albumin Level 3.6 g/dL (3.5-5.1); Alkaline Phosphatase 52 U/L (38-126); Anion Gap 14 mmol/L (8-16); Aspartate Amino Transferase 92 U/L (14-36); Bilirubin,Total 0.3 mg/dL (0.2-1.3); Blood Urea Nitrogen 35 mg/dL (7-17); Calcium 8.4 mg/dL (8.4-10.2); Carbon Dioxide 19 mmol/L (22-30); Chloride 98 mmol/L (98-107); Creatine Kinase 1427 U/L (30-135); Estimated CRCL calculation 23 ml/min; Estimated Glomerular Filt Rate 20; Glucose 211 mg/dL (65-110); Magnesium 1.9 mg/dL (1.6-2.3); Potassium 3.8 mmol/L (3.4-5.0); Sodium 131 mmol/L (137-145)
[2022-02-22 08:03] LABS: Glucose Point of Care 124 mg/dl (65-105)
[2022-02-22] MEDS: TOLNAFTATE 1% POWDER 45 GM BTL 1 APPLIC TOPICAL ×2 (08:48→21:26)
[2022-02-22] MEDS: SERTRALINE HCL 50 MG TABLET 100 MG PO (08:48)
[2022-02-22] MEDS: ATORVASTATIN 10 MG TABLET PO (08:49)
[2022-02-22] MEDS: NICOTINE (*PBKC) 14 MG PATCH 1 PATCH TRANSDERM (08:49)
[2022-02-22] MEDS: methylPREDNISolone SOD SUCC 125 MG VIAL 60 MG IV PUSH (08:49)
[2022-02-22] MEDS: CLOPIDOGREL BISULFATE 75 MG TABLET PO (08:49)
[2022-02-22] MEDS: BETAMETHASONE/CLOTRIMAZOLE CR 15 GM TUBE 1 APPLIC TOPICAL ×2 (08:49→21:35)
[2022-02-22] MEDS: FUROSEMIDE INJ 40 MG/4 ML VIAL IV PUSH (08:50)
[2022-02-22] MEDS: ASPIRIN 81 MG ENTERIC TABLET PO (08:50)
--- NOTE | 2022-02-22 10:19 | PM.PNCARD ---
Progress Note: A&P Assessment and Plan (1) Septic shock: Code(s): A41.9 - Sepsis, unspecified organism; R65.21 - Severe sepsis with septic shock Status: Acute (2) Elevated troponin: Code(s): R77.8 - Other specified abnormalities of plasma proteins Status: Acute (3) Atrial flutter: Code(s): I48.92 - Unspecified atrial flutter Status: Acute Plan continue supportive care. From a happy to see that her echocardiogram does not show significant myocardial injury. Patient is now in atrial fibrillation/ flutter. Yesterday was in sinus. Will need to start systemic anticoagulation. I will stop aspirin and start apixaban. Clopidogrel be continued for now. Once again which she has recovered from this she will require ischemia evaluation. Acute kidney injury is somewhat improved compared to yesterday. Shiva Marie MD [facility] Subjective Date/time seen: Date of evrycwg18/13/22 10:19 Interval history: follow-up visit in this 71-year-old lady with: Elevated troponin in the setting of sepsis/ hypotension. She is on BiPAP in the ICU this morning. Patient says that she feels relatively well. Telemetry demonstrates that yesterday evening she converted from sinus to AFib/flutter with controlled heart rate. Exam Const: General: comfortable and no acute distress Other: Overweight elderly lady on CPAP in the ICU appears to be comfortable HENMT: Mouth: Yes moist mucous membranes Eyes: Sclera: sclerae normal Neck: Neck: supple and no JVD Resp: Effort & Inspection: normal respiratory effort Other: fine high-pitched expiratory wheezing Cardio: Rhythm: abnormal rhythm irregularly irregular GI: GI Palp: Yes Soft to palpation Auscultation: normal bowel sounds Skin: General skin exam: normal color Neuro: Other: alert and oriented Extrem: General: normal to inspection Objective Data Vital Signs Vital Signs: Vital Signs - 24 hr 02/21/22 13:03 02/21/22 12:00 02/21/22 12:00 Temperature 36.6 C Pulse Rate 92 92 Respiratory Rate 29 H Blood Pressure 107/51 L 96/53 L Pulse Oximetry 100 Oxygen Delivery Oxygen Flow Rate 02/21/22 12:00 02/21/22 14:56 02/21/22 15:09 Temperature Pulse Rate 101 H 97 Respiratory Rate 32 H 26 H Blood Pressure Pulse Oximetry 100 Oxygen Delivery Nasal Cannula Oxygen Flow Rate 3 02/21/22 14:00 02/21/22 14:00 02/21/22 15:57 Temperature 36.6 C Pulse Rate 101 H 94 Respiratory Rate 32 H Blood Pressure 103/51 L Pulse Oximetry 97 98 Oxygen Delivery Nasal Cannula Oxygen Flow Rate 3 02/21/22 16:00 02/21/22 17:02 02/21/22 17:08 Temperature Pulse Rate 97 Respiratory Rate Blood Pressure 106/53 L 106/53 L Pulse Oximetry Oxygen Delivery Oxygen Flow Rate 02/21/22 11:00 02/21/22 11:01 02/21/22 11:15 Temperature Pulse Rate 94 91 91 Respiratory Rate 24 H 25 H 22 H Blood Pressure 88/37 L Pulse Oximetry 100 99 99 Oxygen Delivery Oxygen Flow Rate 02/21/22 11:16 02/21/22 11:30 02/21/22 11:31 Temperature Pulse Rate 90 90 90 Respiratory Rate 28 H 19 22 H Blood Pressure 105/41 L 100/60 Pulse Oximetry 100 100 99 Oxygen Delivery Oxygen Flow Rate 02/21/22 11:45 02/21/22 11:46 02/21/22 12:00 Temperature Pulse Rate 92 91 93 Respiratory Rate 30 H 33 H 35 H Blood Pressure 109/47 L Pulse Oximetry 99 100 98 Oxygen Delivery Oxygen Flow Rate 02/21/22 12:01 02/21/22 12:15 02/21/22 12:16 Temperature Pulse Rate 93 91 92 Respiratory Rate 25 H 28 H 18 Blood Pressure 96/53 L 101/47 L Pulse Oximetry 99 100 100 Oxygen Delivery Oxygen Flow Rate 02/21/22 12:30 02/21/22 12:31 02/21/22 12:45 Temperature Pulse Rate 91 91 91 Respiratory Rate 23 H 29 H 31 H Blood Pressure 106/56 L Pulse Oximetry 100 100 100 Oxygen Delivery Oxygen Flow Rate 02/21/22 12:46 02/21/22 13:00 02/21/22 13:01 Temperature P
--- NOTE | 2022-02-22 10:20 | WPDINTPN ---
Progress Note: A&P Assessment and Plan (1) Septic shock: Code(s): A41.9 - Sepsis, unspecified organism; R65.21 - Severe sepsis with septic shock Status: Acute Assessment and Plan: Septic shock secondary to UTI and possible community-acquired pneumonia Urine and blood cultures is growing E coli Pending urine Legionella pneumococcal antigen Pending mycoplasma IgM Continue empiric Rocephin and azithromycin DC vancomycin off Levophed titration She received 25% albumin Off IV fluids as I suspect patient is getting volume overload Lasix ordered (2) Pneumonia: Code(s): J18.9 - Pneumonia, unspecified organism Status: Acute Assessment and Plan: See above (3) Urinary tract infection: Code(s): N39.0 - Urinary tract infection, site not specified Status: Acute Assessment and Plan: See above (4) Acute kidney injury: Code(s): N17.9 - Acute kidney failure, unspecified Status: Acute Assessment and Plan: Patient has baseline chronic kidney disease but presented elevated creatinine which is likely combination of septic shock, hypovolemia rhabdomyolysis and possible secondary to NSAIDs Check urine electrolytes Monitor CK level Renal ultrasound is pending Continue cautious IV fluids Monitor urine output electrolytes and creatinine (5) Chronic renal insufficiency, stage III (moderate): Code(s): N18.30 - Chronic kidney disease, stage 3 unspecified Status: Acute Assessment and Plan: See above (6) Elevated troponin: Code(s): R77.8 - Other specified abnormalities of plasma proteins Status: Acute Assessment and Plan: Elevated troponin likely demand mediated ischemia with elevated creatinine Troponins are trending down EKG reviewed Cardiology following Echocardiogram Summary ? 1. Technically difficult this examination because of patient obesity/definity contrast used. ? 2. Vigorous left ventricular systolic function with grade 1 diastolic noncompliance. ? 3. No ischemic wall motion abnormalities were identified. ? 4. Mildly sclerotic aortic valve which is not stenotic. 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 CT C-spineIMPRESSION: 1. No fracture. 2. Severe cervical spondylosis. (9) COPD exacerbation: Code(s): J44.1 - Chronic obstructive pulmonary disease with (acute) exacerbation Status: Acute Assessment and Plan: On exam patient is wheezing on both sides. She does have history of smoking and likely has COPD Continue bronchodilators Continue Short course of prednisone Antibiotics as above (10) Abdominal pain: Code(s): R10.9 - Unspecified abdominal pain Status: Acute Assessment and Plan: Patient tender right upper quadrant exam although she denies any abdominal pain prior to coming to the hospital LFTs unremarkable Normal lipase Pending upper quadrant ultrasound (11) Diabetes mellitus: Code(s): E11.9 - Type 2 diabetes mellitus without complications Status: Acute Assessment and Plan: Sliding scale insulin (12) Atrial flutter: Code(s): I48.92 - Unspecified atrial flutter Status: Acute Assessment and Plan: Controlled rate Eliquis started by Cardiology (13) Respiratory distress: Code(s): R06.03 - Acute respiratory distress Status: Acute Assessment and Plan: On exam patient appears to be mildly tachypneic and has diffuse wheezing on exam This could be like it secondary to COPD exacerbation -patient is on steroids and bronchodilators Her BNP is eve
[2022-02-22 11:35] LABS: Glucose Point of Care 153 mg/dl (65-105)
--- NOTE | 2022-02-22 12:34 | P.PNNP_ITS ---
Progress Note: A&P Assessment and Plan (1) Acute kidney injury: Code(s): N17.9 - Acute kidney failure, unspecified Status: Acute Assessment and Plan: * likely due to sepsis, shock, hypovolemia, rhabdo, and high dose NSAID use * if an element of AIN, already getting steroids (for her suspected COPD) * evaluation to date: * renal ulrasound with right kidney atrophy * urine electrolytes/eosinophils penidng * CPK mildley elevated but not enought to affect kidney function * IVFs discontinued due to CXR findings of pulmonary edema * IV diuretics being given * follow repeat labs (2) Stage 3a chronic kidney disease: Code(s): N18.31 - Chronic kidney disease, stage 3a Status: Chronic Assessment and Plan: * creatinine seems to run ~ 1.0 - 1.2mg/dl since March 2020 * likely due to HTN, diabetes, vascular disease, age, and recurrent UTIs (3) Septic shock: Code(s): A41.9 - Sepsis, unspecified organism; R65.21 - Severe sepsis with septic shock Status: Acute Assessment and Plan: * presumably from UTI and possibly pneumonia * urine and blood cultures with E.coli * on IV antibiotics * continue vasopressor therapy and wean as tolerated (4) COPD exacerbation: Code(s): J44.1 - Chronic obstructive pulmonary disease with (acute) exacerbation Status: Acute Assessment and Plan: * suspected by wheezing on exam and smoking history * on bronchodilators and prednisone * already on antibiotics as well (5) Elevated troponin: Code(s): R77.8 - Other specified abnormalities of plasma proteins Status: Acute Assessment and Plan: * most likely secondary to shock and sepsis in setting of JUVENAL * however, cannot discount ischemic heart disease * Echo results noted * Cardiology recommendations reviewed (6) Fall: Code(s): W19.XXXA - Unspecified fall, initial encounter Status: Acute Assessment and Plan: * imaging noted * Head CT without an acute pathology * CT C-spine without fractures * PT/OT when more stable . (7) Diabetes mellitus: Code(s): E11.9 - Type 2 diabetes mellitus without complications Status: Acute Assessment and Plan: * follow accucheks * glycemic control Will continue to follow. Subjective Date/time seen: 02/22/22 12:34 Overall, she states she is feeling better; was on BiPAP therapy when seen and appeared to be tolerating reasonably well; able to be weaned off vasopressor therapy with stable hemodynamics noted; does complain of some shortness of breath but in no apparent distress. Exam Narrative: General: WD/WN female in NAD Heart: normal S1 and S2; no rub Lungs: coarse with some bibasilar crackles Abdomen: soft, nontender, nondistended, positive bowel sounds Extremities: no cyanosis or clubbing; no edema Skin: warm and dry Objective Data Vital Signs Vital Signs: Vital Signs Temp Pulse Resp BP Pulse Ox O2 Del Method O2 Flow Rate 02/22/22 12:00 80 02/22/22 10:00 84 02/22/22 08:00 86 02/22/22 14:00 36.1 C L 88 21 H 121/68 95 02/22/22 14:00 97 BiPAP 02/22/22 12:00 95 Autopap 3 02/22/22 13:58 84 26 H 02/22/22 13:48 94 26 H 97 BiPAP 02/22/22 13:36 85 26 H 02/22/22 12:00 36.5
--- NOTE | 2022-02-22 12:34 | PM.PNNEP ---
Progress Note: A&P Assessment and Plan (1) Acute kidney injury: Code(s): N17.9 - Acute kidney failure, unspecified Status: Acute Assessment and Plan: likely due to sepsis, shock, hypovolemia, rhabdo, and high dose NSAID use if an element of AIN, already getting steroids (for her suspected COPD) evaluation to date: renal ulrasound with right kidney atrophy urine electrolytes/eosinophils penidng CPK mildley elevated but not enought to affect kidney function IVFs discontinued due to CXR findings of pulmonary edema IV diuretics being given follow repeat labs (2) Stage 3a chronic kidney disease: Code(s): N18.31 - Chronic kidney disease, stage 3a Status: Chronic Assessment and Plan: creatinine seems to run ~ 1.0 - 1.2mg/dl since March 2020 likely due to HTN, diabetes, vascular disease, age, and recurrent UTIs (3) Septic shock: Code(s): A41.9 - Sepsis, unspecified organism; R65.21 - Severe sepsis with septic shock Status: Acute Assessment and Plan: presumably from UTI and possibly pneumonia urine and blood cultures with E.coli on IV antibiotics continue vasopressor therapy and wean as tolerated (4) COPD exacerbation: Code(s): J44.1 - Chronic obstructive pulmonary disease with (acute) exacerbation Status: Acute Assessment and Plan: suspected by wheezing on exam and smoking history on bronchodilators and prednisone already on antibiotics as well (5) Elevated troponin: Code(s): R77.8 - Other specified abnormalities of plasma proteins Status: Acute Assessment and Plan: most likely secondary to shock and sepsis in setting of JUVENAL however, cannot discount ischemic heart disease Echo results noted Cardiology recommendations reviewed (6) Fall: Code(s): W19.XXXA - Unspecified fall, initial encounter Status: Acute Assessment and Plan: imaging noted Head CT without an acute pathology CT C-spine without fractures PT/OT when more stable . (7) Diabetes mellitus: Code(s): E11.9 - Type 2 diabetes mellitus without complications Status: Acute Assessment and Plan: follow accucheks glycemic control Will continue to follow. Subjective Date/time seen: 02/22/22 12:34 Overall, she states she is feeling better; was on BiPAP therapy when seen and appeared to be tolerating reasonably well; able to be weaned off vasopressor therapy with stable hemodynamics noted; does complain of some shortness of breath but in no apparent distress. Exam Narrative: General: WD/WN female in NAD Heart: normal S1 and S2; no rub Lungs: coarse with some bibasilar crackles Abdomen: soft, nontender, nondistended, positive bowel sounds Extremities: no cyanosis or clubbing; no edema Skin: warm and dry Objective Data Vital Signs Vital Signs: Vital Signs Temp Pulse Resp BP Pulse Ox O2 Del Method O2 Flow Rate 02/22/22 12:00 80 02/22/22 10:00 84 02/22/22 08:00 86 02/22/22 14:00 36.1 C L 88 21 H 121/68 95 02/22/22 14:00 97 BiPAP 02/22/22 12:00 95 Autopap 3 02/22/22 13:58 84 26 H 02/22/22 13:48 94 26 H 97 BiPAP 02/22/22 13:36 85 26 H 02/22/22 12:00 36.5 C 91 20 140/49 L 95 02/22/22 08:00 94 Autopap 3 02/22/22 10:00 36.5 C 77 18 144/49 H 95 02/22/22 08:00 36.7 C 85 16 128/104 H 95 02/22/22 08:21 69 29 H 02/22/22 08:09 88 25 H 96 CPAP 02/22/22 08:07 86 26 H 02/22/22 06:00 84 02/22/22 06:00 84 29 H 98/56 L 100 02/22/22 04:00 36.4 C L 81 25 H 113/63 100 02/22/22 04:00 100 Nasal Cannula 3 02/22/22 04:00 86 02/22/22 02:28 88 20 02/22/22 02:00 66 23 H 119/54 L 97 02/22/22 02:00 66 02/22/22 02:13 74 22 H 98 CPAP 02/22/22 02:11 87 18 02/22/22 00:00 68 1
--- NOTE | 2022-02-22 13:13 | PM.IMPN ---
Progress Note: A&P Assessment and Plan (1) Pneumonia: Code(s): J18.9 - Pneumonia, unspecified organism Status: Acute Assessment and Plan: -continue with community-acquired antibiotics protocol with azithromycin Rocephin. . The patient meets criteria for sepsis with tachycardia and hypotension. The patient is requiring vasopressors x2 at this time. She is placed in ICU. She has acute kidney injury. And elevated troponins. -sputum and blood cultures are pending. Tailor antibiotics accordingly -the patient is fluid responsive as per the [place]. Will give her another fluid bolus and maintained her IV fluid fluids. -continue with nebulizer treatments -the patient is awake and talking without difficulty. 02/22/2022 interval history: 71 y/o presented to ER with generalized weakness short of breath patient was in septic shock transferred to ICU patient was placed on Levophed, vigorously hydrated drapery inspector albumin was given, patient blood and urine cultures are growing E coli sensitive to ceftriaxone and vancomycin will continue, upon arrival patient had a significantly elevated tropes however patient was seen by drapery inspector since patient did not have any significant complaint of chest pain or change in EKG did not suspect acute coronary syndrome and no ischemic workup was ordered recommended to continue Plavix, aspirin and statin, patient was also found to have atrial fibrillation with flutter however rate is controlled drapery inspector started the patient on Eliquis and continued Plavix will hold aspirin for now, currently patient is on BiPAP unable to provide detailed review of symptom her family is present in the room and answered all their questions. (2) Sepsis: Code(s): A41.9 - Sepsis, unspecified organism Status: Acute Assessment and Plan: -continue with IV fluids. -lactic acid is elevated. Will repeat in the a.m.. -the patient is tachycardic and has hypotension. -patient has acute kidney injury and elevated troponin. -the patient is in ICU being supported with vasopressors x2. -she has leukocytosis of WBCs being 20.7. -blood and sputum cultures are pending. (3) Elevated troponin: Code(s): R77.8 - Other specified abnormalities of plasma proteins Status: Acute Assessment and Plan: -cardiology has been consulted. -the patient has been started on an aspirin. She is already on a Plavix for history of CVA -continue to trend troponins. EKG as mentioned above. -the patient has no further complaints of any chest pain. (4) Acute kidney failure: Code(s): N17.9 - Acute kidney failure, unspecified Status: Acute Assessment and Plan: -avoid any nephrotoxic medications. -she could be related to her poor oral intake. -a could be related to her sepsis. -the patient had been on ramipril and Motrin. Those are on hold at this time. (5) Depression: Code(s): F32.A - Depression, unspecified Status: Acute Assessment and Plan: -continue with sertraline (6) Anxiety: Code(s): F41.9 - Anxiety disorder, unspecified Status: Acute Assessment and Plan: -continue with sertraline. (7) Diabetes mellitus: Code(s): E11.9 - Type 2 diabetes mellitus without complications Status: Acute Assessment and Plan: -Accu-Cheks AC and HS. Check A1c -hypoglycemic protocol and sliding scale insulin. (8) Hypercholesterolemia: Code(s): E78.00 - Pure hypercholesterolemia, unspecified Status: Acute Assessment and Plan: -statin is held at this time. (9) Hypertension: Qualifiers: Hypertension type: essential hypertension Qualified Code(s): I10 - Essential (primary) hypertension Code(s): I10 - Essential (primary) hypertension Status: Acute Assessment and Plan: -patient is hypotensive in supported with vasopressors. Any antihypertensive medication is on hold at this time. (10) Dep
[2022-02-22 16:25] LABS: Glucose Point of Care 235 mg/dl (65-105)
[2022-02-22] MEDS: INSULIN ASPART (*BKC) 100 UNITS/ML SUB-Q (16:45)
[2022-02-22] MEDS: APIXABAN 5 MG TABLET PO (21:26)
[2022-02-22 21:37] LABS: Glucose Point of Care 155 mg/dl (65-105)
[2022-02-23] VITALS (24 sets, daily range): BP systolic 123–168; BP diastolic 59–88; PULSE 77–114; RESP 15–32; TEMP 36.4–36.9; O2SAT 90–100; BMI 34.4
[2022-02-23] MEDS: IPRATROPIUM BR 0.02% INH SOLN 0.5 MG/2.5 ML VIAL INHALATION ×3 (02:19→19:52)
[2022-02-23] MEDS: ALBUTEROL SULFATE NEB 2.5 MG/3 ML INH INHALATION ×3 (02:20→19:52)
[2022-02-23 04:55] LABS: Hematocrit 33.8 % (37.0-47.0); Hemoglobin 10.9 g/dL (12.0-15.0); Mean Corpuscular HGB Conc 32.2 g/dl (32-36); Mean Corpuscular Volume 77.5 fl (80-100); Mean Platelet Volume 9.3 fl (7.4-10.4); Platelet Count Result 234 k/mm3 (150-375); Red Blood Count 4.36 M/mm3 (4.2-5.4); Red Cell Distribution Width 18.1 % (11.5-14.5); White Blood Count 17.2 K/mm3 (4.5-10.0)
[2022-02-23 05:04] LABS: Sodium Urine Random 40 meq/L
[2022-02-23 05:09] LABS: Alanine Aminotransferase 31 U/L (6-35); Albumin Level 3.8 g/dL (3.5-5.1); Alkaline Phosphatase 64 U/L (38-126); Anion Gap 8 mmol/L (8-16); Aspartate Amino Transferase 63 U/L (14-36); Bilirubin,Total 0.5 mg/dL (0.2-1.3); Blood Urea Nitrogen 45 mg/dL (7-17); Carbon Dioxide 23 mmol/L (22-30); Chloride 99 mmol/L (98-107); Creatine Kinase 670 U/L (30-135); Estimated CRCL calculation 25 ml/min; Estimated Glomerular Filt Rate 21; Glucose 141 mg/dL (65-110); Phosphorus 4.8 mg/dL (2.5-4.5); Potassium 3.4 mmol/L (3.4-5.0); Sodium 130 mmol/L (137-145)
[2022-02-23 05:31] LABS: Creatinine Urine 47.9 mg/dL
[2022-02-23 05:42] LABS: Eosinophil Urine None Seen % (None Seen)
--- NOTE | 2022-02-23 09:40 | WPDINTPN ---
Progress Note: A&P Assessment and Plan (1) Septic shock: Code(s): A41.9 - Sepsis, unspecified organism; R65.21 - Severe sepsis with septic shock Status: Acute Assessment and Plan: Septic shock secondary to UTI and possible community-acquired pneumonia Urine and blood cultures is growing E coli which is sensitive to Rocephin Pending urine Legionella pneumococcal antigen Pending mycoplasma IgM Continue empiric Rocephin and azithromycin. Vancomycin discontinue off Levophed titration She received 25% albumin and is now off Off IV fluids as I suspect patient is getting volume overload Lasix ordered (2) Respiratory distress: Code(s): R06.03 - Acute respiratory distress Status: Acute Assessment and Plan: Secondary to a AECOPD and congestive heart failure Patient was placed on BiPAP yesterday and appears to be have clinically improved with steroids bronchodilators and Lasix Will transition patient nasal cannula this morning Continue steroids and bronchodilators Will give another dose of Lasix today after potassium replacement (3) Pneumonia: Code(s): J18.9 - Pneumonia, unspecified organism Status: Acute Assessment and Plan: See above (4) Urinary tract infection: Code(s): N39.0 - Urinary tract infection, site not specified Status: Acute Assessment and Plan: See above (5) Acute kidney injury: Code(s): N17.9 - Acute kidney failure, unspecified Status: Acute Assessment and Plan: Patient has baseline chronic kidney disease but presented elevated creatinine which is likely combination of septic shock, hypovolemia rhabdomyolysis and possible secondary to NSAIDs Improved CK level Renal ultrasound showed moderate atrophy of right kidney Off IV fluids due to volume overload Monitor urine output electrolytes and creatinine Nephrology following Replace low potassium (6) Chronic renal insufficiency, stage III (moderate): Code(s): N18.30 - Chronic kidney disease, stage 3 unspecified Status: Acute Assessment and Plan: See above (7) Elevated troponin: Code(s): R77.8 - Other specified abnormalities of plasma proteins Status: Acute Assessment and Plan: Elevated troponin likely demand mediated ischemia with elevated creatinine Troponins are trending down EKG reviewed Cardiology following Echocardiogram Summary ? 1. Technically difficult this examination because of patient obesity/definity contrast used. ? 2. Vigorous left ventricular systolic function with grade 1 diastolic noncompliance. ? 3. No ischemic wall motion abnormalities were identified. ? 4. Mildly sclerotic aortic valve which is not stenotic. Continue statin and Plavix Anticoagulation Eliquis has been started for AFib by Cardiology (8) Tobacco abuse: Code(s): Z72.0 - Tobacco use Status: Acute Assessment and Plan: Patient was counseled and encouraged to quit smoking (9) Fall: Code(s): W19.XXXA - Unspecified fall, initial encounter Status: Acute Assessment and Plan: Head CT Old infarcts involving left parietal lobe and left caudate nucleus. CT C-spineIMPRESSION: 1. No fracture. 2. Severe cervical spondylosis. (10) COPD exacerbation: Code(s): J44.1 - Chronic obstructive pulmonary disease with (acute) exacerbation Status: Acute Assessment and Plan: On exam patient is wheezing on both sides. She does have history of smoking and likely has COPD Continue bronchodilators Continue Short course of prednisone Antibiotics as above (11) Abdominal pain: Code(s): R10.9 - Unspecified abdominal pain Status: Acute Assessment and Plan: Patient tender right upper quadrant exam although she denies any abdominal pain prior to coming to the hospital LFTs unremarkable Normal lipase Right upper quadrant ultrasound showed - Sludge or stones in the gallbladder with mild gallbladder wall
[2022-02-23] MEDS: KCL 40 MEQ/WATER 100 ML 100 ML 25 ML IVPB (09:48)
[2022-02-23] MEDS: NICOTINE (*PBKC) 14 MG PATCH 1 PATCH TRANSDERM (09:49)
[2022-02-23] MEDS: TOLNAFTATE 1% POWDER 45 GM BTL 1 APPLIC TOPICAL ×2 (09:49→19:38)
[2022-02-23] MEDS: methylPREDNISolone SOD SUCC 125 MG VIAL 60 MG IV PUSH (09:49)
[2022-02-23 09:59] LABS: Glucose Point of Care 130 mg/dl (65-105)
--- NOTE | 2022-02-23 13:02 | PM.PNNEP ---
Progress Note: A&P Assessment and Plan (1) Acute kidney injury: Code(s): N17.9 - Acute kidney failure, unspecified Status: Acute Assessment and Plan: likely due to sepsis, shock, infection, hypovolemia, rhabdo, and high dose NSAID use if an element of AIN, already getting steroids (for her suspected COPD) evaluation to date: renal ultrasound with right kidney atrophy urine electrolytes non-prerenal eosinophils negative CPK mildly elevated but not enough to affect kidney function IVFs discontinued due to CXR findings of pulmonary edema IV diuretics being given follow repeat labs (2) Stage 3a chronic kidney disease: Code(s): N18.31 - Chronic kidney disease, stage 3a Status: Chronic Assessment and Plan: creatinine seems to run ~ 1.0 - 1.2mg/dl since March 2020 likely due to HTN, diabetes, vascular disease, age, and recurrent UTIs (3) Septic shock: Code(s): A41.9 - Sepsis, unspecified organism; R65.21 - Severe sepsis with septic shock Status: Acute Assessment and Plan: presumably from UTI and possibly pneumonia urine and blood cultures with E.coli on IV antibiotics off vasopressors (4) COPD exacerbation: Code(s): J44.1 - Chronic obstructive pulmonary disease with (acute) exacerbation Status: Acute Assessment and Plan: suspected by wheezing on exam and smoking history on bronchodilators and short course of prednisone already on antibiotics as well (5) Elevated troponin: Code(s): R77.8 - Other specified abnormalities of plasma proteins Status: Acute Assessment and Plan: most likely secondary to shock and sepsis in setting of JUVENAL however, cannot discount ischemic heart disease Echo results noted Cardiology recommendations reviewed (6) Fall: Code(s): W19.XXXA - Unspecified fall, initial encounter Status: Acute Assessment and Plan: imaging noted Head CT without an acute pathology CT C-spine without fractures PT/OT when more stable . (7) Diabetes mellitus: Code(s): E11.9 - Type 2 diabetes mellitus without complications Status: Acute Assessment and Plan: follow accucheks glycemic control Will continue to follow. Subjective Date/time seen: 02/23/22 13:02 Respiratory status seems to be relatively stable -- started on diuretic therapy due to concerns for fluid overload by recent imaging; appears in NSR at the time of my visit; no other issues/events noted overnight or earlier this moring. Exam Narrative: General: WD/WN female in NAD Heart: normal S1 and S2; no rub Lungs: coarse with some bibasilar crackles Abdomen: soft, nontender, nondistended, positive bowel sounds Extremities: no cyanosis or clubbing; no edema Skin: warm and dry Objective Data Vital Signs Vital Signs: Vital Signs Temp Pulse Resp BP Pulse Ox O2 Del Method O2 Flow Rate 02/23/22 12:00 36.7 C 96 24 H 138/78 90 02/23/22 12:00 97 02/23/22 12:00 93 Venturi Mask 3 02/23/22 09:10 97 Venturi Mask 3 02/23/22 10:00 89 23 H 128/64 93 02/23/22 10:00 90 02/23/22 08:00 93 Venturi Mask 3 02/23/22 08:00 36.7 C 77 18 130/76 98 02/23/22 08:00 83 02/23/22 08:17 80 21 H 02/23/22 08:45 95 Nasal Cannula 3 02/23/22 08:07 85 21 H 99 BiPAP 02/23/22 08:07 85 21 H 02/23/22 06:00 82 20 147/78 H 97 02/23/22 06:00 82 02/23/22 05:44 85 15 96 BiPAP 02/23/22 04:00 36.5 C 85 20 133/67 97 02/23/22 03:49 97 BiPAP 02/23/22 03:49 85 02/23/22 02:00 36.4 C L 87 18 136/59 L 97 02/23/22 02:00 87 02/23/22 02:35 82 22 H 02/23/22 02:20 84 21 H 02/23/22 02:20 84 21 H 100 BiPAP 02/23/22 02:20 84 21 H 99 BiPAP 02/23/22 00:00 95 BiPAP 02/23/22 00:00 84 02/23/22 00:00 36
--- NOTE | 2022-02-23 13:02 | P.PNNP_ITS ---
Progress Note: A&P Assessment and Plan (1) Acute kidney injury: Code(s): N17.9 - Acute kidney failure, unspecified Status: Acute Assessment and Plan: * likely due to sepsis, shock, infection, hypovolemia, rhabdo, and high dose NSAID use * if an element of AIN, already getting steroids (for her suspected COPD) * evaluation to date: * renal ultrasound with right kidney atrophy * urine electrolytes non-prerenal * eosinophils negative * CPK mildly elevated but not enough to affect kidney function * IVFs discontinued due to CXR findings of pulmonary edema * IV diuretics being given * follow repeat labs (2) Stage 3a chronic kidney disease: Code(s): N18.31 - Chronic kidney disease, stage 3a Status: Chronic Assessment and Plan: * creatinine seems to run ~ 1.0 - 1.2mg/dl since March 2020 * likely due to HTN, diabetes, vascular disease, age, and recurrent UTIs (3) Septic shock: Code(s): A41.9 - Sepsis, unspecified organism; R65.21 - Severe sepsis with septic shock Status: Acute Assessment and Plan: * presumably from UTI and possibly pneumonia * urine and blood cultures with E.coli * on IV antibiotics * off vasopressors (4) COPD exacerbation: Code(s): J44.1 - Chronic obstructive pulmonary disease with (acute) exacerbation Status: Acute Assessment and Plan: * suspected by wheezing on exam and smoking history * on bronchodilators and short course of prednisone * already on antibiotics as well (5) Elevated troponin: Code(s): R77.8 - Other specified abnormalities of plasma proteins Status: Acute Assessment and Plan: * most likely secondary to shock and sepsis in setting of JUVENAL * however, cannot discount ischemic heart disease * Echo results noted * Cardiology recommendations reviewed (6) Fall: Code(s): W19.XXXA - Unspecified fall, initial encounter Status: Acute Assessment and Plan: * imaging noted * Head CT without an acute pathology * CT C-spine without fractures * PT/OT when more stable . (7) Diabetes mellitus: Code(s): E11.9 - Type 2 diabetes mellitus without complications Status: Acute Assessment and Plan: * follow accucheks * glycemic control Will continue to follow. Subjective Date/time seen: 02/23/22 13:02 Respiratory status seems to be relatively stable -- started on diuretic therapy due to concerns for fluid overload by recent imaging; appears in NSR at the time of my visit; no other issues/events noted overnight or earlier this moring. Exam Narrative: General: WD/WN female in NAD Heart: normal S1 and S2; no rub Lungs: coarse with some bibasilar crackles Abdomen: soft, nontender, nondistended, positive bowel sounds Extremities: no cyanosis or clubbing; no edema Skin: warm and dry Objective Data Vital Signs Vital Signs: Vital Signs Temp Pulse Resp BP Pulse Ox O2 Del Method O2 Flow Rate 02/23/22 12:00 36.7 C 96 24 H 138/78 90 02/23/22 12:00 97 02/23/22 12:00 93 Venturi Mask 3 02/23/22 09:10 97 Venturi Mask 3 02/23/22 10:00 89 23 H 128/64 93 02/23/22 10:00 90 02/23/22 08:00 93 Venturi Mask 3 02/23/22 08:00 36.7 C 77 18 130/76 98 02/23/22 08:00 83
--- NOTE | 2022-02-23 13:25 | PC.NURSE ---
This patient, Cassidy Paris, was transferred to [[id number]] on 02/23/22 at 1325. Personal belongings sent with patient. Report given to [Elizabeth Brooks RN]. Appropriate documentation sent with patient.
[2022-02-23] MEDS: SERTRALINE HCL 50 MG TABLET 100 MG PO (13:37)
[2022-02-23] MEDS: FUROSEMIDE INJ 40 MG/4 ML VIAL IV PUSH (13:37)
[2022-02-23] MEDS: cefTRIAXone 2 GM in SODIUM CHLORIDE 0.9% IV 100 ML 200 ML IVPB (13:37)
[2022-02-23] MEDS: BETAMETHASONE/CLOTRIMAZOLE CR 15 GM TUBE 1 APPLIC TOPICAL ×2 (13:38→18:27)
[2022-02-23] MEDS: CLOPIDOGREL BISULFATE 75 MG TABLET PO (13:38)
[2022-02-23] MEDS: APIXABAN 5 MG TABLET PO ×2 (13:38→19:39)
[2022-02-23] MEDS: ATORVASTATIN 10 MG TABLET PO (13:38)
[2022-02-23] MEDS: CENTRAL LINE FLUSH 10 ML IV PUSH ×3 (13:42→19:38)
--- NOTE | 2022-02-23 13:55 | PC.NURSE ---
This patient, Cassidy Paris, was received from ICU-3 on 02/23/22 at 1325. Report received from Scarlet Brooks RN. Patient/family oriented to unit policies and routines
[2022-02-23 14:00] LABS: Glucose Point of Care 181 mg/dl (65-105)
[2022-02-23 17:04] LABS: Glucose Point of Care 268 mg/dl (65-105)
--- NOTE | 2022-02-23 17:11 | PCRCNOTE ---
Window of time for administration has passed. See next scheduled administration.
[2022-02-23] MEDS: INSULIN ASPART (*BKC) 100 UNITS/ML SUB-Q (18:27)
[2022-02-23 20:04] LABS: Glucose Point of Care 153 mg/dl (65-105)
[2022-02-24] VITALS (22 sets, daily range): BP systolic 120–146; BP diastolic 55–69; PULSE 78–134; RESP 18–25; TEMP 36.1–37.2; O2SAT 88–100
[2022-02-24] MEDS: ALBUTEROL SULFATE NEB 2.5 MG/3 ML INH INHALATION ×4 (03:00→22:02)
[2022-02-24] MEDS: IPRATROPIUM BR 0.02% INH SOLN 0.5 MG/2.5 ML VIAL INHALATION ×4 (03:01→22:02)
[2022-02-24 05:10] LABS: Hematocrit 36.6 % (37.0-47.0); Hemoglobin 11.5 g/dL (12.0-15.0); Mean Corpuscular HGB Conc 31.4 g/dl (32-36); Mean Corpuscular Hemoglobin 24.4 pg (26-34); Mean Corpuscular Volume 77.7 fl (80-100); Mean Platelet Volume 9.1 fl (7.4-10.4); Platelet Count Result 263 k/mm3 (150-375); Red Blood Count 4.71 M/mm3 (4.2-5.4); Red Cell Distribution Width 17.9 % (11.5-14.5); White Blood Count 15.2 K/mm3 (4.5-10.0)
[2022-02-24 05:28] LABS: Alanine Aminotransferase 33 U/L (6-35); Albumin Level 4.1 g/dL (3.5-5.1); Alkaline Phosphatase 73 U/L (38-126); Anion Gap 12 mmol/L (8-16); Aspartate Amino Transferase 51 U/L (14-36); Bilirubin,Total 0.6 mg/dL (0.2-1.3); Blood Urea Nitrogen 54 mg/dL (7-17); Calcium 9.5 mg/dL (8.4-10.2); Carbon Dioxide 25 mmol/L (22-30); Chloride 100 mmol/L (98-107); Creatine Kinase 318 U/L (30-135); Estimated CRCL calculation 24 ml/min; Estimated Glomerular Filt Rate 20; Glucose 127 mg/dL (65-110); Magnesium 2.2 mg/dL (1.6-2.3); Potassium 3.5 mmol/L (3.4-5.0); Sodium 137 mmol/L (137-145)
[2022-02-24] MEDS: CENTRAL LINE FLUSH 10 ML IV PUSH ×4 (05:34→21:02)
[2022-02-24 08:36] LABS: Glucose Point of Care 128 mg/dl (65-105)
[2022-02-24] MEDS: methylPREDNISolone SOD SUCC 125 MG VIAL 60 MG IV PUSH (09:37)
[2022-02-24] MEDS: SERTRALINE HCL 50 MG TABLET 100 MG PO (09:37)
[2022-02-24] MEDS: CLOPIDOGREL BISULFATE 75 MG TABLET PO (09:37)
[2022-02-24] MEDS: ATORVASTATIN 10 MG TABLET PO (09:37)
[2022-02-24] MEDS: APIXABAN 5 MG TABLET PO ×2 (09:37→21:02)
[2022-02-24] MEDS: BETAMETHASONE/CLOTRIMAZOLE CR 15 GM TUBE 1 APPLIC TOPICAL ×2 (09:38→18:41)
[2022-02-24] MEDS: NICOTINE (*PBKC) 14 MG PATCH 1 PATCH TRANSDERM (09:38)
[2022-02-24] MEDS: TOLNAFTATE 1% POWDER 45 GM BTL 1 APPLIC TOPICAL ×2 (09:38→21:02)
--- NOTE | 2022-02-24 11:05 | PM.PNNEP ---
Progress Note: A&P Assessment and Plan (1) Acute kidney injury: Code(s): N17.9 - Acute kidney failure, unspecified Status: Acute Assessment and Plan: likely due to sepsis, shock, infection, hypovolemia, rhabdo, and high dose NSAID use if an element of AIN, already getting steroids (for her COPD) evaluation to date: renal ultrasound with right kidney atrophy urine electrolytes non-prerenal eosinophils negative CPK mildly elevated but not enough to affect kidney function IVFs discontinued due to CXR findings of pulmonary edema getting IV diuretics - possibly reason for lack of improvement in creatinine in last 24 hours(?) consider holding lasix - repeat CXR follow repeat labs and UOP (2) Stage 3a chronic kidney disease: Code(s): N18.31 - Chronic kidney disease, stage 3a Status: Chronic Assessment and Plan: creatinine seems to run ~ 1.0 - 1.2mg/dl since March 2020 however, no intervening labs since October 2020 -- possible component of kidney disease progression? likely due to HTN, diabetes, vascular disease, age, and recurrent UTIs (3) Septic shock: Code(s): A41.9 - Sepsis, unspecified organism; R65.21 - Severe sepsis with septic shock Status: Acute Assessment and Plan: presumably from UTI and possibly pneumonia urine and blood cultures with E.coli on IV antibiotics off vasopressors (4) COPD exacerbation: Code(s): J44.1 - Chronic obstructive pulmonary disease with (acute) exacerbation Status: Acute Assessment and Plan: suspected by wheezing on exam and smoking history on bronchodilators and steroids already on antibiotics as well (5) Elevated troponin: Code(s): R77.8 - Other specified abnormalities of plasma proteins Status: Acute Assessment and Plan: most likely secondary to shock and sepsis in setting of JUVENAL however, cannot discount ischemic heart disease Echo results noted Cardiology recommendations reviewed (6) Fall: Code(s): W19.XXXA - Unspecified fall, initial encounter Status: Acute Assessment and Plan: imaging noted Head CT without an acute pathology CT C-spine without fractures PT/OT when more stable . (7) Diabetes mellitus: Code(s): E11.9 - Type 2 diabetes mellitus without complications Status: Acute Assessment and Plan: follow accucheks glycemic control Will continue to follow. Subjective Date/time seen: 02/24/22 11:05 Transferred out of ICU yesterday afternoon; breathing/shortness of breat appears to be doing better but still has productive cough; reasonable diuresis in the last 24 - 48 hours with diuretic therapy. Exam Narrative: General: WD/WN female in NAD Heart: normal S1 and S2; no rub Lungs: coarse with ongoing wheezing noted Abdomen: soft, nontender, nondistended, positive bowel sounds Extremities: no cyanosis or clubbing; no edema Skin: warm and intact Objective Data Vital Signs Vital Signs: Vital Signs Temp Pulse Resp BP Pulse Ox O2 Del Method O2 Flow Rate 02/24/22 08:00 86 22 H 02/24/22 07:50 88 22 H 100 BiPAP 02/24/22 07:50 88 22 H 02/24/22 10:00 86 02/24/22 08:00 88 L Venturi Mask 6 02/24/22 08:00 84 02/24/22 07:59 36.1 C L 81 22 H 146/62 H 96 02/24/22 06:00 85 02/24/22 04:00 36.7 C 81 22 H 135/65 99 02/24/22 04:00 78 02/24/22 04:00 82 19 96 BiPAP 02/24/22 03:02 81 22 H 02/24/22 02:50 83 22 H 02/24/22 02:59 83 22 H 96 BiPAP 02/24/22 01:58 134 H 02/24/22 00:00 89 21 H 96 BiPAP 02/24/22 00:00 81 02/23/22 23:24 36.6 C 91 20 123/88 97 02/23/22 22:00 89 02/23/22 20:00 95 02/23/22 20:00 36.7 C 99 20 143/76 H 91 02/23/22 20:05 89 25 H 02/23/22 20:00 89 27 H 95 BiPAP 02/23/22 19:52 79 27 H
--- NOTE | 2022-02-24 11:05 | P.PNNP_ITS ---
Progress Note: A&P Assessment and Plan (1) Acute kidney injury: Code(s): N17.9 - Acute kidney failure, unspecified Status: Acute Assessment and Plan: * likely due to sepsis, shock, infection, hypovolemia, rhabdo, and high dose NSAID use * if an element of AIN, already getting steroids (for her COPD) * evaluation to date: * renal ultrasound with right kidney atrophy * urine electrolytes non-prerenal * eosinophils negative * CPK mildly elevated but not enough to affect kidney function * IVFs discontinued due to CXR findings of pulmonary edema * getting IV diuretics - possibly reason for lack of improvement in creatinine in last 24 hours(?) * consider holding lasix - repeat CXR * follow repeat labs and UOP (2) Stage 3a chronic kidney disease: Code(s): N18.31 - Chronic kidney disease, stage 3a Status: Chronic Assessment and Plan: * creatinine seems to run ~ 1.0 - 1.2mg/dl since March 2020 * however, no intervening labs since October 2020 -- possible component of kidney disease progression? * likely due to HTN, diabetes, vascular disease, age, and recurrent UTIs (3) Septic shock: Code(s): A41.9 - Sepsis, unspecified organism; R65.21 - Severe sepsis with septic shock Status: Acute Assessment and Plan: * presumably from UTI and possibly pneumonia * urine and blood cultures with E.coli * on IV antibiotics * off vasopressors (4) COPD exacerbation: Code(s): J44.1 - Chronic obstructive pulmonary disease with (acute) exacerbation Status: Acute Assessment and Plan: * suspected by wheezing on exam and smoking history * on bronchodilators and steroids * already on antibiotics as well (5) Elevated troponin: Code(s): R77.8 - Other specified abnormalities of plasma proteins Status: Acute Assessment and Plan: * most likely secondary to shock and sepsis in setting of JUVENAL * however, cannot discount ischemic heart disease * Echo results noted * Cardiology recommendations reviewed (6) Fall: Code(s): W19.XXXA - Unspecified fall, initial encounter Status: Acute Assessment and Plan: * imaging noted * Head CT without an acute pathology * CT C-spine without fractures * PT/OT when more stable . (7) Diabetes mellitus: Code(s): E11.9 - Type 2 diabetes mellitus without complications Status: Acute Assessment and Plan: * follow accucheks * glycemic control Will continue to follow. Subjective Date/time seen: 02/24/22 11:05 Transferred out of ICU yesterday afternoon; breathing/shortness of breat appears to be doing better but still has productive cough; reasonable diuresis in the last 24 - 48 hours with diuretic therapy. Exam Narrative: General: WD/WN female in NAD Heart: normal S1 and S2; no rub Lungs: coarse with ongoing wheezing noted Abdomen: soft, nontender, nondistended, positive bowel sounds Extremities: no cyanosis or clubbing; no edema Skin: warm and intact Objective Data Vital Signs Vital Signs: Vital Signs Temp Pulse Resp BP Pulse Ox O2 Del Method O2 Flow Rate 02/24/22 08:00 86 22 H 02/24/22 07:50 88 22 H 100 BiPAP 02/24/22 07:50 88 22 H 02/24/22 10:00 86 02/24/22 08:00 88 L Venturi Mask 6 02/24/22 08:00 84
[2022-02-24 12:00] LABS: Glucose Point of Care 213 mg/dl (65-105)
[2022-02-24] MEDS: cefTRIAXone 2 GM in SODIUM CHLORIDE 0.9% IV 100 ML 200 ML IVPB (12:40)
[2022-02-24] MEDS: INSULIN ASPART (*BKC) 100 UNITS/ML SUB-Q (12:40)
--- NOTE | 2022-02-24 14:56 | PM.IMPN ---
Progress Note: A&P Assessment and Plan (1) Septic shock: Code(s): A41.9 - Sepsis, unspecified organism; R65.21 - Severe sepsis with septic shock Status: Acute Assessment and Plan: Septic shock secondary to UTI and possible community-acquired pneumonia. Influenza, RSV and COVID negative. Legionella and pneumococcal urine antigen pending. Did require Levophed but able to be weaned off. UCx growing EColi. BCx also growing Ecoli both sensitive to Rocephin. Continue Rocephin 2gm daily. (2) Respiratory distress: Code(s): R06.03 - Acute respiratory distress Status: Acute Assessment and Plan: Secondary to a AECOPD and congestive heart failure. Patient was placed on BiPAP with improvement. Treated with steroids and lasix. Excellent UOP past few days. No pedal edema noted. Still wheezing. Continue with steroids and bronchodilators. Wean O2 as tolerated. Repeat CXR in the morning. Start PT/OT when able. (3) Acute kidney injury: Code(s): N17.9 - Acute kidney failure, unspecified Status: Acute Assessment and Plan: Patient has CKD with baseline Cr at 1-1.2. Cr 3.0 on admission related to sepsis, septic shock, hypovolemia, rhabdo and NSAID use. Cr has trended down daily until today with Cr basically flat. Renal ultrasound showed moderate atrophy of right kidney. Hold on repeating Lasix today. Nephrology following and apprecaite their input. (4) Elevated troponin: Code(s): R77.8 - Other specified abnormalities of plasma proteins Status: Acute Assessment and Plan: Elevated troponin on admission at 5.5. Likely demand mediated ischemia with elevated creatinine. Troponins were trending down on recheck. EKG showing borderline anteriolateral ST changes. She is now in AFlutter with controlled rate. Echo showing EF 70% with Grade I diastolic dysfunction. Continue statin and Plavix. Cardiology following with plans for ischemia evaluation when she is more stable. Appreciate Cardiology input. (5) Atrial flutter: Code(s): I48.92 - Unspecified atrial flutter Status: Acute Assessment and Plan: Dain has developed AFlutte since admisison. Cardiology consulted. Anticoagulation with Eliquis started. Rate controlled. As above. (6) COPD exacerbation: Code(s): J44.1 - Chronic obstructive pulmonary disease with (acute) exacerbation Status: Acute Assessment and Plan: Patient still wheezing. She does have history of smoking and likely has COPD. Continue bronchodilators. Continue Solu-Medrol. Antibiotics as above. Wean O2 as tolerated (7) Pneumonia: Code(s): J18.9 - Pneumonia, unspecified organism Status: Acute Assessment and Plan: As above (8) Urinary tract infection: Code(s): N39.0 - Urinary tract infection, site not specified Status: Acute Assessment and Plan: As above (9) Chronic renal insufficiency, stage III (moderate): Code(s): N18.30 - Chronic kidney disease, stage 3 unspecified Status: Acute Assessment and Plan: As above (10) Fall: Code(s): W19.XXXA - Unspecified fall, initial encounter Status: Acute Assessment and Plan: Fall prior to admisison. 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 CT C-spine showing no fracture. Start PT/OT when she is more stable. (11) Abdominal pain: Code(s): R10.9 - Unspecified abdominal pain Status: Acute Assessment and Plan: Patient was tender RUQ although she denies any abdominal pain prior to coming to the hospital. LFTs unremarkable and Lipase normal. RUQ US showing sludge or stones in the gallbladder with mild gallbladder wall thickening and no additional signs of cholecystitis. HIDA scan showing low EF consistent with GB dysfunction and/or chronic cholecystitis. [place] the bacteremia from a urinary source. Will consult GenSurg. (12) Diabetes
[2022-02-24 16:30] LABS: Glucose Point of Care 225 mg/dl (65-105)
[2022-02-24 19:48] LABS: Glucose Point of Care 177 mg/dl (65-105)
[2022-02-24 19:49] LABS: Glucose Point of Care 221 mg/dl (65-105)
[2022-02-24 20:47] LABS: Mycoplasma IgM Antibody Titer 82 U/mL (<770)
[2022-02-25] VITALS (24 sets, daily range): BP systolic 137–183; BP diastolic 52–78; PULSE 68–97; RESP 18–23; TEMP 36–36.6; O2SAT 90–98
[2022-02-25] MEDS: ALBUTEROL SULFATE NEB 2.5 MG/3 ML INH INHALATION ×4 (01:54→20:54)
[2022-02-25] MEDS: IPRATROPIUM BR 0.02% INH SOLN 0.5 MG/2.5 ML VIAL INHALATION ×4 (01:54→20:55)
[2022-02-25 05:13] LABS: Hematocrit 36.9 % (37.0-47.0); Hemoglobin 11.4 g/dL (12.0-15.0); Mean Corpuscular HGB Conc 30.9 g/dl (32-36); Mean Corpuscular Hemoglobin 24.5 pg (26-34); Mean Corpuscular Volume 79.4 fl (80-100); Platelet Count Result 271 k/mm3 (150-375); Red Blood Count 4.65 M/mm3 (4.2-5.4); White Blood Count 13.4 K/mm3 (4.5-10.0)
[2022-02-25 05:32] LABS: Alanine Aminotransferase 34 U/L (6-35); Albumin Level 3.7 g/dL (3.5-5.1); Alkaline Phosphatase 69 U/L (38-126); Anion Gap 10 mmol/L (8-16); Aspartate Amino Transferase 41 U/L (14-36); Bilirubin,Total 0.6 mg/dL (0.2-1.3); Blood Urea Nitrogen 51 mg/dL (7-17); Calcium 9.3 mg/dL (8.4-10.2); Carbon Dioxide 28 mmol/L (22-30); Chloride 103 mmol/L (98-107); Creatine Kinase 197 U/L (30-135); Estimated CRCL calculation 28 ml/min; Estimated Glomerular Filt Rate 24; Glucose 110 mg/dL (65-110); Magnesium 2.1 mg/dL (1.6-2.3); Phosphorus 3.6 mg/dL (2.5-4.5); Potassium 3.4 mmol/L (3.4-5.0); Sodium 141 mmol/L (137-145)
[2022-02-25] MEDS: CENTRAL LINE FLUSH 10 ML IV PUSH ×4 (06:08→20:55)
[2022-02-25 08:08] LABS: Glucose Point of Care 129 mg/dl (65-105)
--- NOTE | 2022-02-25 08:54 | PM.CNGS ---
Assessment and Plan Assessment and plan (1) Cholecystitis with cholelithiasis: Code(s): K80.10 - Calculus of gallbladder with chronic cholecystitis without obstruction Status: Acute Assessment and Plan: exam benign at this time, studies more suggestive of chronic cholecystitis, poor surgical candidate and given improvement c conservative measures would cont current treatment, if symptoms worsen may benefit from perc cholecystostomy (2) Septic shock: Code(s): A41.9 - Sepsis, unspecified organism; R65.21 - Severe sepsis with septic shock Status: Acute Assessment and Plan: largely resolved, cont abx per primary team, feel the cholecystitis unlikely source of sepsis History of Present Illness Consult details Consult date: 02/25/22 Reason for consult: abdominal pain Requesting physician: Jarad Zhu MD Narrative: The pt is a 71 y/o F c multiple med issues presenting to hospital c sepsis secondary to pneumonia, UTI. Pt also c/o upper abd pain and workup suggestive of cholecystitis, cholelithiasis. Pt reports pain has since largely resolved and she is andre diabetic diet this morning. Pt is off all pressors at this time and reports she is doing much better overall. Review of Systems Constitutional: Constitutional: Reports as per HPI, Denies anorexia, Denies chills, Reports fatigue, Denies fever(s), Denies increased appetite, Reports lethargy, Reports malaise, Denies poor appetite, Reports weakness, Denies weight gain and Denies weight loss Eyes: Eyes: Reports no additional eye complaints ENT: Reports system reviewed and no additional complaints, except as documented Cardiovascular: Cardiovascular: Reports no additional cardiovascular complaints Respiratory: Respiratory: Reports no additional respiratory complaints Gastrointestinal: Gastrointestinal: Reports as per HPI, Reports abdominal pain, Reports bloating, Reports GI cramping, Reports nausea and Denies vomiting Genitourinary: Genitourinary: Reports no additional female genitourinary complaints Musculoskeletal: Musculoskeletal: Reports no additional musculoskeletal complaints Integumentary/Breasts: Skin/Breast: Reports system reviewed and no additional complaints, except as docu Neurologic: Reports system reviewed and no additional complaints, except as documented Psychiatric: Psychiatric: Reports no additional psychiatric complaints Endocrine: Endocrine: Reports no additional endocrine complaints Hematologic/Lymphatic: Hematologic/Lymphatic: Reports no additional hematologic/lymphatic complaints Allergic/Immunologic: Allergic/Immunologic: Reports no additional allergic/immunologic complaints PMFSH Past Medical History Medical History Anxiety Carotid arterial disease Chronic renal insufficiency, stage III (moderate) Dependence on CPAP ventilation Depression Diabetes mellitus Hx-TIA (transient ischemic attack) Hypercholesterolemia Hypertension Hyponatremia Obesity (BMI 30-39.9) ELEANOR (obstructive sleep apnea) Osteopenia Smoker Urinary, incontinence, stress female Surgical History Surgical History History of appendectomy History of cataract extraction both History of left-sided carotid endarterectomy 2000 Family History Family History Father Family history of heart disease in male family member before age 55 Other Cerebrovascular accident Family history of coronary artery disease Family history of lung cancer Social History Social History Social History: The patient lives with her . She has 3 biologic children and 1 step child. Her has Parkinson's. She is retired from a [employer] company. Her son julisa cardenas is the power lead mechanical engineer. The patient continues to smoke at least half a pack
[2022-02-25] MEDS: ATORVASTATIN 10 MG TABLET PO (08:56)
[2022-02-25] MEDS: CLOPIDOGREL BISULFATE 75 MG TABLET PO (08:56)
[2022-02-25] MEDS: SERTRALINE HCL 50 MG TABLET 100 MG PO (08:56)
[2022-02-25] MEDS: APIXABAN 5 MG TABLET PO ×2 (08:56→20:55)
[2022-02-25] MEDS: NICOTINE (*PBKC) 14 MG PATCH 1 PATCH TRANSDERM (08:57)
[2022-02-25] MEDS: TOLNAFTATE 1% POWDER 45 GM BTL 1 APPLIC TOPICAL ×2 (08:58→20:55)
[2022-02-25] MEDS: BETAMETHASONE/CLOTRIMAZOLE CR 15 GM TUBE 1 APPLIC TOPICAL ×2 (08:58→18:13)
[2022-02-25] MEDS: methylPREDNISolone SOD SUCC 125 MG VIAL 60 MG IV PUSH (08:58)
[2022-02-25 11:20] LABS: Glucose Point of Care 160 mg/dl (65-105)
--- NOTE | 2022-02-25 12:13 | PM.IMPN ---
Progress Note: A&P Assessment and Plan (1) Septic shock: Code(s): A41.9 - Sepsis, unspecified organism; R65.21 - Severe sepsis with septic shock Status: Acute Assessment and Plan: IV fluid resuscitation Monitor lactic acid levels Repeat CBC CMP e coli growth bothBlood cultures urine cultures CXR Pneumonia Monitor albumin' Monitoring of mental status. Steroids suggested if septic shock on his positive fluid resuscitation and vasopressors. IV antibiotics sensitive to Rocephin will continue patient gallbladder shows no acute findings except dyskinesia (2) Respiratory distress: Code(s): R06.03 - Acute respiratory distress Status: Acute Assessment and Plan: Secondary to a AECOPD and congestive heart failure. Patient was placed on BiPAP with improvement. Treated with steroids and lasix. Continue with steroids and bronchodilators. Wean O2 as tolerated.. Start PT/OT when able. (3) Acute kidney injury: Code(s): N17.9 - Acute kidney failure, unspecified Status: Acute Assessment and Plan: And gentle hydration. Avoid nephrotoxic drugs. Monitor antihypertensive drugs Avoid NSAIDs. Routine CMP monitor GFR. Monitor electrolytes potassium levels. Dose antibiotics depending on creatinine clearance Routine follow-up with PCP and lime kiln tender recommended (4) Elevated troponin: Code(s): R77.8 - Other specified abnormalities of plasma proteins Status: Acute Assessment and Plan: Elevated troponin on admission at 5.5. Likely demand mediated ischemia with elevated creatinine. Troponins were trending down on recheck. EKG showing borderline anteriolateral ST changes. She is now in AFlutter with controlled rate. Echo showing EF 70% with Grade I diastolic dysfunction. (5) Atrial flutter: Code(s): I48.92 - Unspecified atrial flutter Status: Acute Assessment and Plan: Dain has developed AFlutte since admisison. Cardiology consulted. Anticoagulation with Eliquis started. Rate controlled. As above. (6) COPD exacerbation: Code(s): J44.1 - Chronic obstructive pulmonary disease with (acute) exacerbation Status: Acute Assessment and Plan: Patient advice to quit smoking. Bronchodilators. Keeping BMI less than 25. Routine exercises. Pneumoniae and flu vaccines as advised Pulmonary rehab if indicated. For disease management to follow GOLD guidelines. Screen for Vitamine D deficency. Repeat hospitilaztion risk evaluation per CAT. Evaluation for home O2 if saturations less than 88% on room air (7) Pneumonia: Code(s): J18.9 - Pneumonia, unspecified organism Status: Acute Assessment and Plan: As above (8) Urinary tract infection: Code(s): N39.0 - Urinary tract infection, site not specified Status: Acute Assessment and Plan: As above (9) Chronic renal insufficiency, stage III (moderate): Code(s): N18.30 - Chronic kidney disease, stage 3 unspecified Status: Acute Assessment and Plan: As above (10) Fall: Code(s): W19.XXXA - Unspecified fall, initial encounter Status: Acute Assessment and Plan: Fall prior to admisison. 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 CT C-spine showing no fracture. Start PT/OT when she is more stable. (11) Abdominal pain: Code(s): R10.9 - Unspecified abdominal pain Status: Acute Assessment and Plan: no abdominal pain at this time . HIDA scan showing low EF consistent with GB dysfunction and/or chronic cholecystitis. Can consult General surgery as outpatient no clear need surgery at this time as gallbladder does not show any stones or thickening of the gallbladder (12) Diabetes mellitus: Code(s): E11.9 - Type 2 diabetes mellitus without complications Status: Acute Assessment and Plan: Yearly ey
--- NOTE | 2022-02-25 12:24 | PM.PNNEP ---
Progress Note: A&P Assessment and Plan (1) Acute kidney injury: Code(s): N17.9 - Acute kidney failure, unspecified Status: Acute Assessment and Plan: likely due to sepsis, shock, infection, hypovolemia, rhabdo, and high dose NSAID use if an element of AIN, already getting steroids (for her COPD) evaluation to date: renal ultrasound with right kidney atrophy urine electrolytes non-prerenal eosinophils negative CPK mildly elevated but not enough to affect kidney function IVFs discontinued due to CXR findings of pulmonary edema s/p IV diuretics repeat CXR noted (on 02/25/22) -- may need oral diuretics follow repeat labs and UOP (2) Stage 3a chronic kidney disease: Code(s): N18.31 - Chronic kidney disease, stage 3a Status: Chronic Assessment and Plan: creatinine seems to run ~ 1.0 - 1.2mg/dl since March 2020 however, no intervening labs since October 2020 -- possible component of kidney disease progression? likely due to HTN, diabetes, vascular disease, age, and recurrent UTIs (3) Septic shock: Code(s): A41.9 - Sepsis, unspecified organism; R65.21 - Severe sepsis with septic shock Status: Acute Assessment and Plan: presumably from UTI and possibly pneumonia urine and blood cultures with E.coli on IV antibiotics off vasopressors (4) COPD exacerbation: Code(s): J44.1 - Chronic obstructive pulmonary disease with (acute) exacerbation Status: Acute Assessment and Plan: suspected by wheezing on exam on admission and smoking history on bronchodilators and steroids already on antibiotics as well (5) Elevated troponin: Code(s): R77.8 - Other specified abnormalities of plasma proteins Status: Acute Assessment and Plan: most likely secondary to shock and sepsis in setting of JUVENAL however, cannot discount ischemic heart disease Echo results noted Cardiology recommendations reviewed (6) Fall: Code(s): W19.XXXA - Unspecified fall, initial encounter Status: Acute Assessment and Plan: imaging noted Head CT without an acute pathology CT C-spine without fractures PT/OT when more stable . (7) Diabetes mellitus: Code(s): E11.9 - Type 2 diabetes mellitus without complications Status: Acute Assessment and Plan: follow accucheks glycemic control Will continue to follow. Subjective Date/time seen: 02/25/22 12:24 Patient appears to be doing relatively well; breathing/respiratory status stable at the time of my visit; renal function better with holding diuretics yesterday although CXR still show some mild pulmonary edema; no apparent distress voiced; no issues/events overnight. Exam Narrative: General: WD/WN female in NAD Heart: normal S1 and S2; no rub Lungs: coarse breath sounds Abdomen: soft, nontender, nondistended, positive bowel sounds Extremities: no cyanosis or clubbing; no edema Skin: warm and intact Objective Data Vital Signs Vital Signs: Vital Signs Temp Pulse Resp BP Pulse Ox O2 Del Method O2 Flow Rate 02/25/22 12:00 97 Venturi Mask 3 02/25/22 10:00 94 02/25/22 08:00 95 Venturi Mask 3 02/25/22 08:00 85 02/25/22 12:00 36.3 C L 95 20 175/78 H 95 02/25/22 08:00 36.0 C L 84 21 H 155/71 H 98 02/25/22 08:25 91 18 02/25/22 08:16 90 Venturi Mask 3 02/25/22 08:12 90 18 02/25/22 06:00 68 02/25/22 04:00 36.6 C 84 22 H 137/52 L 96 02/25/22 04:00 97 BiPAP 02/25/22 04:00 92 02/25/22 02:00 84 02/25/22 02:06 86 18 02/25/22 01:57 84 18 02/25/22 01:57 84 18 97 BiPAP 02/25/22 00:00 97 BiPAP 02/25/22 00:00 88 02/24/22 23:49 36.7 C 92 22 H 134/67 96 02/24/22 22:10 94 20 02/24/22 22:00 94 20 96 Venturi Mask 6 02/24/22 22:00 94 25 H 96 BiPAP 02/24/22
--- NOTE | 2022-02-25 12:24 | P.PNNP_ITS ---
Progress Note: A&P Assessment and Plan (1) Acute kidney injury: Code(s): N17.9 - Acute kidney failure, unspecified Status: Acute Assessment and Plan: * likely due to sepsis, shock, infection, hypovolemia, rhabdo, and high dose NSAID use * if an element of AIN, already getting steroids (for her COPD) * evaluation to date: * renal ultrasound with right kidney atrophy * urine electrolytes non-prerenal * eosinophils negative * CPK mildly elevated but not enough to affect kidney function * IVFs discontinued due to CXR findings of pulmonary edema * s/p IV diuretics * repeat CXR noted (on 02/25/22) -- may need oral diuretics * follow repeat labs and UOP (2) Stage 3a chronic kidney disease: Code(s): N18.31 - Chronic kidney disease, stage 3a Status: Chronic Assessment and Plan: * creatinine seems to run ~ 1.0 - 1.2mg/dl since March 2020 * however, no intervening labs since October 2020 -- possible component of kidney disease progression? * likely due to HTN, diabetes, vascular disease, age, and recurrent UTIs (3) Septic shock: Code(s): A41.9 - Sepsis, unspecified organism; R65.21 - Severe sepsis with septic shock Status: Acute Assessment and Plan: * presumably from UTI and possibly pneumonia * urine and blood cultures with E.coli * on IV antibiotics * off vasopressors (4) COPD exacerbation: Code(s): J44.1 - Chronic obstructive pulmonary disease with (acute) exacerbation Status: Acute Assessment and Plan: * suspected by wheezing on exam on admission and smoking history * on bronchodilators and steroids * already on antibiotics as well (5) Elevated troponin: Code(s): R77.8 - Other specified abnormalities of plasma proteins Status: Acute Assessment and Plan: * most likely secondary to shock and sepsis in setting of JUVENAL * however, cannot discount ischemic heart disease * Echo results noted * Cardiology recommendations reviewed (6) Fall: Code(s): W19.XXXA - Unspecified fall, initial encounter Status: Acute Assessment and Plan: * imaging noted * Head CT without an acute pathology * CT C-spine without fractures * PT/OT when more stable . (7) Diabetes mellitus: Code(s): E11.9 - Type 2 diabetes mellitus without complications Status: Acute Assessment and Plan: * follow accucheks * glycemic control Will continue to follow. Subjective Date/time seen: 02/25/22 12:24 Patient appears to be doing relatively well; breathing/respiratory status stable at the time of my visit; renal function better with holding diuretics yesterday although CXR still show some mild pulmonary edema; no apparent distress voiced; no issues/events overnight. Exam Narrative: General: WD/WN female in NAD Heart: normal S1 and S2; no rub Lungs: coarse breath sounds Abdomen: soft, nontender, nondistended, positive bowel sounds Extremities: no cyanosis or clubbing; no edema Skin: warm and intact Objective Data Vital Signs Vital Signs: Vital Signs Temp Pulse Resp BP Pulse Ox O2 Del Method O2 Flow Rate 02/25/22 12:00 97 Venturi Mask 3 02/25/22 10:00 94 02/25/22 08:00 95 Venturi Mask 3 02/25/22 08:00 85 02/25/22 12:00 36.3 C L 95 20 175/78 H 95 02/25/22
[2022-02-25] MEDS: cefTRIAXone 2 GM in SODIUM CHLORIDE 0.9% IV 100 ML 200 ML IVPB (14:40)
--- NOTE | 2022-02-25 16:40 | PCPTNOTE ---
Attempted PT evaluation, pt refused with pt stating I am so Tired. RN aware of refusal and pt having bedrest orders. Will follow.
[2022-02-25 16:48] LABS: Glucose Point of Care 238 mg/dl (65-105)
[2022-02-25] MEDS: INSULIN ASPART (*BKC) 100 UNITS/ML SUB-Q (18:13)
[2022-02-25 20:25] LABS: Glucose Point of Care 167 mg/dl (65-105)
[2022-02-26] VITALS (18 sets, daily range): BP systolic 106–171; BP diastolic 53–70; PULSE 73–90; RESP 18–24; TEMP 35.8–36.6; O2SAT 91–98
[2022-02-26] MEDS: IPRATROPIUM BR 0.02% INH SOLN 0.5 MG/2.5 ML VIAL INHALATION ×4 (02:37→21:39)
[2022-02-26] MEDS: ALBUTEROL SULFATE NEB 2.5 MG/3 ML INH INHALATION ×4 (02:37→21:39)
[2022-02-26] MEDS: CENTRAL LINE FLUSH 10 ML IV PUSH ×4 (05:18→20:42)
[2022-02-26 05:35] LABS: Hemoglobin 11.4 g/dL (12.0-15.0); Mean Corpuscular HGB Conc 30.8 g/dl (32-36); Mean Corpuscular Hemoglobin 24.6 pg (26-34); Mean Corpuscular Volume 79.9 fl (80-100); Mean Platelet Volume 9.4 fl (7.4-10.4); Platelet Count Result 333 k/mm3 (150-375); Red Blood Count 4.63 M/mm3 (4.2-5.4); Red Cell Distribution Width 17.8 % (11.5-14.5); White Blood Count 15.1 K/mm3 (4.5-10.0)
[2022-02-26 08:36] LABS: Alanine Aminotransferase 31 U/L (6-35); Albumin Level 3.6 g/dL (3.5-5.1); Alkaline Phosphatase 64 U/L (38-126); Anion Gap 12 mmol/L (8-16); Aspartate Amino Transferase 38 U/L (14-36); Bilirubin,Total 0.7 mg/dL (0.2-1.3); Blood Urea Nitrogen 47 mg/dL (7-17); Calcium 9.3 mg/dL (8.4-10.2); Carbon Dioxide 28 mmol/L (22-30); Chloride 100 mmol/L (98-107); Creatine Kinase 140 U/L (30-135); Estimated CRCL calculation 35 ml/min; Estimated Glomerular Filt Rate 32; Glucose 96 mg/dL (65-110); Phosphorus 3.5 mg/dL (2.5-4.5); Potassium 3.3 mmol/L (3.4-5.0); Sodium 140 mmol/L (137-145)
[2022-02-26] MEDS: methylPREDNISolone SOD SUCC 125 MG VIAL 60 MG IV PUSH (09:19)
[2022-02-26] MEDS: CLOPIDOGREL BISULFATE 75 MG TABLET PO (09:19)
[2022-02-26] MEDS: SERTRALINE HCL 50 MG TABLET 100 MG PO (09:19)
[2022-02-26] MEDS: APIXABAN 5 MG TABLET PO ×2 (09:19→20:42)
[2022-02-26] MEDS: ATORVASTATIN 10 MG TABLET PO (09:19)
[2022-02-26] MEDS: NICOTINE (*PBKC) 14 MG PATCH 1 PATCH TRANSDERM (09:20)
[2022-02-26] MEDS: TOLNAFTATE 1% POWDER 45 GM BTL 1 APPLIC TOPICAL ×2 (09:20→20:42)
[2022-02-26] MEDS: BETAMETHASONE/CLOTRIMAZOLE CR 15 GM TUBE 1 APPLIC TOPICAL ×2 (09:20→17:48)
[2022-02-26 10:13] LABS: Glucose Point of Care 104 mg/dl (65-105)
--- NOTE | 2022-02-26 10:52 | PM.PNGS ---
Progress Note: A&P Assessment and Plan (1) Cholecystitis with cholelithiasis: Code(s): K80.10 - Calculus of gallbladder with chronic cholecystitis without obstruction Status: Acute Assessment and Plan: exam cont to be benign, andre diabetic diet, cont conservative mgmt c serial exams, labs, abx (2) Septic shock: Code(s): A41.9 - Sepsis, unspecified organism; R65.21 - Severe sepsis with septic shock Status: Acute Assessment and Plan: largely resolved, WBC sl increased today, cont to follow, off all pressors, cont abx Subjective Subjective Date/Time Seen: 02/26/22 10:52 feels ok but weak, no acute issues, andre diet, no abd pain Review of Systems Review of Systems: All systems reviewed & are unremarkable except as noted in HPI and below Exam Const: General: cooperative, comfortable, no acute distress and ill appearing Cardio: Rate: regular rate Rhythm: regular rhythm GI: Inspection: normal to inspection GI Palp: No abdominal tenderness, Yes Soft to palpation, No Tenderness to palpation present (GI), No Guarding due to palpation present (GI) and No Rigid due to palpation Objective Data Vital Signs Vital Signs: Vital Signs - 24 hr 02/25/22 12:00 02/25/22 12:00 02/25/22 13:50 Temperature 36.3 C L Pulse Rate 95 95 Respiratory Rate 20 18 Blood Pressure 175/78 H Pulse Oximetry 95 97 Oxygen Delivery Venturi Mask Oxygen Flow Rate 3 Fraction of Inspired Oxygen 02/25/22 14:03 02/25/22 12:00 02/25/22 14:00 Temperature Pulse Rate 97 92 Respiratory Rate 18 Blood Pressure Pulse Oximetry Oxygen Delivery Oxygen Flow Rate Fraction of Inspired Oxygen 02/25/22 16:00 02/25/22 16:00 02/25/22 16:00 Temperature 36.0 C L Pulse Rate 90 92 Respiratory Rate 22 H Blood Pressure 159/76 H Pulse Oximetry 93 95 Oxygen Delivery Venturi Mask Oxygen Flow Rate 3 Fraction of Inspired Oxygen 02/25/22 18:00 02/25/22 20:00 02/25/22 20:59 Temperature 36.5 C Pulse Rate 85 89 89 Respiratory Rate 22 H 18 Blood Pressure 183/69 H Pulse Oximetry 92 Oxygen Delivery Oxygen Flow Rate Fraction of Inspired Oxygen 02/25/22 21:01 02/25/22 21:14 02/25/22 22:38 Temperature Pulse Rate 87 Respiratory Rate 18 Blood Pressure 164/67 H Pulse Oximetry 93 Oxygen Delivery Venturi Mask Oxygen Flow Rate 3 Fraction of Inspired Oxygen 02/25/22 22:43 02/26/22 00:00 02/25/22 20:00 Temperature 36.3 C L Pulse Rate 81 74 Respiratory Rate 23 H 24 H Blood Pressure 155/62 H Pulse Oximetry 98 98 93 Oxygen Delivery BiPAP Venturi Mask Oxygen Flow Rate 3 Fraction of Inspired Oxygen 02/26/22 00:00 02/26/22 02:41 02/26/22 02:41 Temperature Pulse Rate 73 73 Respiratory Rate 20 20 Blood Pressure Pulse Oximetry 98 98 Oxygen Delivery BiPAP BiPAP Oxygen Flow Rate Fraction of Inspired Oxygen 30 02/25/22 20:00 02/25/22 22:00 02/26/22 00:00 Temperature Pulse Rate 81 85 79 Respiratory Rate Blood Pressure Pulse Oximetry Oxygen Delivery Oxygen Flow Rate Fraction of Inspired Oxygen 02/26/22 02:00 02/26/22 04:00 02/26/22 04:00 Temperature 36.2 C L Pulse Rate 76 82 75 Respiratory Rate 20 Blood Pressure 171/66 H Pulse Oximetry 95 Oxygen Delivery Oxygen Flow Rate Fraction of Inspired Oxygen 02/26/22 04:00 02/26/22 06:00 02/26/22 08:28 Temperature Pulse Rate 76 88 Respiratory Rate Blood Pressure Pulse Oximetry 95 91 Oxygen Delivery BiPAP Venturi Mask Oxygen Flow Rate 3 Fraction of Inspired Oxygen 30 02/26/22 08:28 02/26/22 08:38 02/26/22 08:00 Temperature 35.8 C L Pulse Rate 88 89 78 Respiratory Rate 20 20 22 H Blood Pressure 131/59 L Pulse Oximetry 95 Oxygen Delivery Oxygen Flow Rate Fraction of Inspired Oxygen 02/26/22 08:53 Temperature Pulse Rate 90 Respiratory Rate Blood Pressure
[2022-02-26 12:09] LABS: Glucose Point of Care 172 mg/dl (65-105)
--- NOTE | 2022-02-26 12:35 | P.PNNP_ITS ---
Progress Note: A&P Assessment and Plan (1) Acute kidney injury: Code(s): N17.9 - Acute kidney failure, unspecified Status: Acute Assessment and Plan: * improving * likely due to sepsis, shock, infection, hypovolemia, rhabdo, and high dose NSAID use * if an element of AIN, already getting steroids (for her COPD) * evaluation to date: * renal ultrasound with right kidney atrophy * urine electrolytes non-prerenal * eosinophils negative * CPK mildly elevated but not enough to affect kidney function * IVFs discontinued due to CXR findings of pulmonary edema * s/p IV diuretics * repeat CXR noted (on 02/25/22) -- may need oral diuretics * follow repeat labs and UOP (2) Stage 3a chronic kidney disease: Code(s): N18.31 - Chronic kidney disease, stage 3a Status: Chronic Assessment and Plan: * creatinine seems to run ~ 1.0 - 1.2mg/dl since March 2020 * however, no intervening labs since October 2020 -- possible component of kidney disease progression? * CKD likely due to HTN, diabetes, vascular disease, age, and recurrent UTIs (3) Septic shock: Code(s): A41.9 - Sepsis, unspecified organism; R65.21 - Severe sepsis with septic shock Status: Acute Assessment and Plan: * presumably from UTI and possibly pneumonia * urine and blood cultures with E.coli * on IV antibiotics * off vasopressors (4) COPD exacerbation: Code(s): J44.1 - Chronic obstructive pulmonary disease with (acute) exacerbation Status: Acute Assessment and Plan: * suspected by wheezing on exam on admission and smoking history * on bronchodilators and steroids * already on antibiotics as well (5) Elevated troponin: Code(s): R77.8 - Other specified abnormalities of plasma proteins Status: Acute Assessment and Plan: * most likely secondary to shock and sepsis in setting of JUVENAL * however, cannot discount ischemic heart disease * Echo results noted * Cardiology recommendations reviewed (6) Fall: Code(s): W19.XXXA - Unspecified fall, initial encounter Status: Acute Assessment and Plan: * imaging noted * Head CT without an acute pathology * CT C-spine without fractures * PT/OT as able . (7) Diabetes mellitus: Code(s): E11.9 - Type 2 diabetes mellitus without complications Status: Acute Assessment and Plan: * follow accucheks * glycemic control Will continue to follow. Subjective Date/time seen: 02/26/22 12:35 Slow and steady improvement noted -- breathing/respiratory status continue to improve/stabilize; no apparent distress voiced at the time of my visit; renal functions continues to improve Exam Narrative: General: WD/WN female in NAD Heart: normal S1 and S2; no rub Lungs: coarse breath sounds Abdomen: soft, nontender, nondistended, positive bowel sounds Extremities: no cyanosis or clubbing; no edema Skin: no rash Objective Data Vital Signs Vital Signs: Vital Signs Temp Pulse Resp BP Pulse Ox O2 Del Method O2 Flow Rate 02/26/22 11:19 Nasal Cannula 3 02/26/22 08:53 90 93 Nasal Cannula 2 02/26/22 08:00 35.8 C L 78 22 H 131/59 L 95 02/26/22 08:38 89 20 02/26/22 08:28 88 20 02/26/22 08:28 88 91 Venturi Mask 3 02/26/22 06:00 76
--- NOTE | 2022-02-26 12:35 | PM.PNNEP ---
Progress Note: A&P Assessment and Plan (1) Acute kidney injury: Code(s): N17.9 - Acute kidney failure, unspecified Status: Acute Assessment and Plan: improving likely due to sepsis, shock, infection, hypovolemia, rhabdo, and high dose NSAID use if an element of AIN, already getting steroids (for her COPD) evaluation to date: renal ultrasound with right kidney atrophy urine electrolytes non-prerenal eosinophils negative CPK mildly elevated but not enough to affect kidney function IVFs discontinued due to CXR findings of pulmonary edema s/p IV diuretics repeat CXR noted (on 02/25/22) -- may need oral diuretics follow repeat labs and UOP (2) Stage 3a chronic kidney disease: Code(s): N18.31 - Chronic kidney disease, stage 3a Status: Chronic Assessment and Plan: creatinine seems to run ~ 1.0 - 1.2mg/dl since March 2020 however, no intervening labs since October 2020 -- possible component of kidney disease progression? CKD likely due to HTN, diabetes, vascular disease, age, and recurrent UTIs (3) Septic shock: Code(s): A41.9 - Sepsis, unspecified organism; R65.21 - Severe sepsis with septic shock Status: Acute Assessment and Plan: presumably from UTI and possibly pneumonia urine and blood cultures with E.coli on IV antibiotics off vasopressors (4) COPD exacerbation: Code(s): J44.1 - Chronic obstructive pulmonary disease with (acute) exacerbation Status: Acute Assessment and Plan: suspected by wheezing on exam on admission and smoking history on bronchodilators and steroids already on antibiotics as well (5) Elevated troponin: Code(s): R77.8 - Other specified abnormalities of plasma proteins Status: Acute Assessment and Plan: most likely secondary to shock and sepsis in setting of JUVENAL however, cannot discount ischemic heart disease Echo results noted Cardiology recommendations reviewed (6) Fall: Code(s): W19.XXXA - Unspecified fall, initial encounter Status: Acute Assessment and Plan: imaging noted Head CT without an acute pathology CT C-spine without fractures PT/OT as able . (7) Diabetes mellitus: Code(s): E11.9 - Type 2 diabetes mellitus without complications Status: Acute Assessment and Plan: follow accucheks glycemic control Will continue to follow. Subjective Date/time seen: 02/26/22 12:35 Slow and steady improvement noted -- breathing/respiratory status continue to improve/stabilize; no apparent distress voiced at the time of my visit; renal functions continues to improve Exam Narrative: General: WD/WN female in NAD Heart: normal S1 and S2; no rub Lungs: coarse breath sounds Abdomen: soft, nontender, nondistended, positive bowel sounds Extremities: no cyanosis or clubbing; no edema Skin: no rash Objective Data Vital Signs Vital Signs: Vital Signs Temp Pulse Resp BP Pulse Ox O2 Del Method O2 Flow Rate 02/26/22 11:19 Nasal Cannula 3 02/26/22 08:53 90 93 Nasal Cannula 2 02/26/22 08:00 35.8 C L 78 22 H 131/59 L 95 02/26/22 08:38 89 20 02/26/22 08:28 88 20 02/26/22 08:28 88 91 Venturi Mask 3 02/26/22 06:00 76 02/26/22 04:00 95 BiPAP 02/26/22 04:00 75 02/26/22 04:00 36.2 C L 82 20 171/66 H 95 02/26/22 02:00 76 02/26/22 00:00 79 02/25/22 22:00 85 02/25/22 20:00 81 02/26/22 02:41 73 20 98 BiPAP 02/26/22 02:41 73 20 02/26/22 00:00 98 BiPAP 02/25/22 20:00 93 Venturi Mask 3 02/26/22 00:00 36.3 C L 74 24 H 155/62 H 98 02/25/22 22:43 81 23 H 98 BiPAP 02/25/22 22:38 164/67 H 02/25/22 21:14 87 18 02/25/22 21:01 93 Venturi Mask 3 02/25/22 20:59 89 18 02/25/22 20:00 36.5 C 89 22 H 183/69 H 92 02/25/22 18:00
--- NOTE | 2022-02-26 12:45 | PCNFU ---
Nutrition Follow-Up Complete: Inadequate oral intake related to loss of appetite as evidenced by MST score 2 Goal:Adequate PO intake when diet is advanced as medically able Pt current nutrition is Diabetic consistent carb. Nutrition recommendation: Last recorded weight is 99 kg - stable. Bowel Motility: +BM 02/21 Labs Reviewed: Hgb:11.4, K:3.3, BUN:47, Cr:1.6 Meds Noted: Eliquis, solumedrol, novolog Skin: no pressure areas noted Additional Notes: Pt diet advanced to diabetic consistent carb. Intake good at 75-100% of meals, Wt stable. Agree with diet orders. Monitor intake, wt, labs. Follow up in 7 days.
[2022-02-26] MEDS: cefTRIAXone 2 GM in SODIUM CHLORIDE 0.9% IV 100 ML 200 ML IVPB (12:52)
[2022-02-26 17:19] LABS: Glucose Point of Care 218 mg/dl (65-105)
[2022-02-26] MEDS: INSULIN ASPART (*BKC) 100 UNITS/ML SUB-Q (17:40)
[2022-02-26 20:50] LABS: Glucose Point of Care 134 mg/dl (65-105)
[2022-02-27] VITALS (15 sets, daily range): BP systolic 106–138; BP diastolic 42–70; PULSE 61–91; RESP 18–24; TEMP 36–36.6; O2SAT 92–100
[2022-02-27] MEDS: ALBUTEROL SULFATE NEB 2.5 MG/3 ML INH INHALATION ×4 (03:29→21:00)
[2022-02-27] MEDS: IPRATROPIUM BR 0.02% INH SOLN 0.5 MG/2.5 ML VIAL INHALATION ×4 (03:29→21:00)
[2022-02-27] MEDS: CENTRAL LINE FLUSH 10 ML IV PUSH ×2 (05:52→13:53)
[2022-02-27 07:52] LABS: Glucose Point of Care 115 mg/dl (65-105)
[2022-02-27 08:14] LABS: Legionella pneumophila Ag Ur Not Detected
[2022-02-27 08:17] LABS: Pneumococcal Antigen Urine Not Detected
[2022-02-27] MEDS: APIXABAN 5 MG TABLET PO ×2 (10:08→20:07)
[2022-02-27] MEDS: SERTRALINE HCL 50 MG TABLET 100 MG PO (10:08)
[2022-02-27] MEDS: ATORVASTATIN 10 MG TABLET PO (10:08)
[2022-02-27] MEDS: TOLNAFTATE 1% POWDER 45 GM BTL 1 APPLIC TOPICAL ×2 (10:08→20:07)
[2022-02-27] MEDS: CLOPIDOGREL BISULFATE 75 MG TABLET PO (10:08)
[2022-02-27] MEDS: BETAMETHASONE/CLOTRIMAZOLE CR 15 GM TUBE 1 APPLIC TOPICAL ×2 (10:09→16:47)
[2022-02-27] MEDS: NICOTINE (*PBKC) 14 MG PATCH 1 PATCH TRANSDERM (10:09)
[2022-02-27] MEDS: cefTRIAXone 2 GM in SODIUM CHLORIDE 0.9% IV 100 ML 200 ML IVPB (11:43)
[2022-02-27 11:57] LABS: Glucose Point of Care 174 mg/dl (65-105)
--- NOTE | 2022-02-27 12:08 | PM.PNCARD ---
Progress Note: A&P Assessment and Plan (1) Elevated troponin: Code(s): R77.8 - Other specified abnormalities of plasma proteins Status: Acute (2) Atrial flutter: Code(s): I48.92 - Unspecified atrial flutter Status: Acute Plan 71-year-old lady with elevated troponin and episode of atrial fib upon admission with septic shock. As she has improved clinically she is back in sinus rhythm. No previous cardiac history and no complaints of any ischemic chest pain. My plan will be to follow her through this hospitalization and perform ischemic testing likely with a Lexiscan nuclear stress testing as an outpatient once she is completely recovered from this current illness. As she is not having any cardiac symptomatology I do not think there is any need to pursue this during this hospitalization. Shiva Marie MD [facility] Subjective Date/time seen: date of service:02/27/22 12:08 Interval history: Follow-up visit in this 71-year-old woman with: Elevated troponin and episode of atrial fib/ flutter in the setting of septic shock. Patient being seen now in IMU. She is comfortable enjoying her lunch and offers no cardiovascular complaints. Four days ago she converted back to sinus rhythm. Systemic anticoagulation in place with apixaban. Exam Const: General: comfortable and no acute distress Other: Pleasant obese lady comfortable cooperative no distress HENMT: Mouth: Yes moist mucous membranes Eyes: Sclera: sclerae normal Neck: Neck: supple Other: no carotid bruit normal carotid upstrokes Resp: Effort & Inspection: normal respiratory effort Other: breath sounds are grossly clear posteriorly Cardio: Rate: regular rate Rhythm: regular rhythm Other: no murmur no gallop no rub GI: GI Palp: Yes Soft to palpation Auscultation: normal bowel sounds Skin: General skin exam: normal color Neuro: Other: alert and oriented x3 Objective Data Vital Signs Vital Signs: Vital Signs - 24 hr 02/26/22 14:30 02/26/22 14:39 02/26/22 16:00 Temperature 36.1 C L Pulse Rate 76 81 83 Respiratory Rate 20 20 24 H Blood Pressure 134/70 Pulse Oximetry 97 Oxygen Delivery Oxygen Flow Rate 02/26/22 20:00 02/26/22 21:41 02/26/22 21:42 Temperature 36.6 C Pulse Rate 82 79 Respiratory Rate 18 18 Blood Pressure 106/53 L Pulse Oximetry 98 92 Oxygen Delivery Nasal Cannula Oxygen Flow Rate 3 02/26/22 21:53 02/26/22 21:56 02/26/22 20:00 Temperature Pulse Rate 77 77 Respiratory Rate 18 20 Blood Pressure Pulse Oximetry 97 98 Oxygen Delivery BiPAP Nasal Cannula Oxygen Flow Rate 3 02/27/22 00:00 02/27/22 03:29 02/27/22 03:43 Temperature 36.6 C Pulse Rate 61 70 72 Respiratory Rate 24 H 18 18 Blood Pressure 128/70 Pulse Oximetry 100 Oxygen Delivery Oxygen Flow Rate 02/27/22 08:46 02/27/22 08:47 02/27/22 08:00 Temperature 36.2 C L Pulse Rate 72 91 Respiratory Rate 20 22 H Blood Pressure 138/61 Pulse Oximetry 92 97 Oxygen Delivery Nasal Cannula Oxygen Flow Rate 3 02/27/22 09:00 02/27/22 08:00 Temperature Pulse Rate 70 Respiratory Rate 20 Blood Pressure Pulse Oximetry 97 Oxygen Delivery Nasal Cannula Oxygen Flow Rate 2 Intake/Output Intake/Output: Intake & Output 02/24/22 02/25/22 02/26/22 02/27/22 23:59 23:59 23:59 23:59 Intake Total 1031 1710 2180 1100 Output Total 2500 2500 2450 900 [facility] 1469 -790 -270 200 Meds/Results Medications: Active Medications Generic Name Dose Route Start Last Admin Trade Name Freq PRN Reason Stop Dose Admin Albuterol 2.5 mg 02/21/22 02:00 02/27/22 08:45 Albuterol Sulfate Neb 2.5 Mg/3 Ml Inh INHALATION 2.5 mg Q6HRT EMMANUEL Administration Apixaban 5 mg 02/22/22 21:00 02/27/22 10:08 Apixaban 5 Mg Tablet PO 5 mg Q12HR EMMANUEL Administration Atorvastatin Calcium 10 mg 02/21/22 09:00 02/27/22 10:08 Atorvastatin 10 Mg Tablet
--- NOTE | 2022-02-27 12:39 | P.CDI_ITS ---
CDI Query Clarified Diagnosis Clarified Diagnosis: Problem list : Acute Respiratory distress states related to CHF. Patient with increased oxygen demands requiring a Bipap Patient treated with Lasix Lab work shows elevated BNP Please specify type and acuity of heart failure if known. Risk Factors: Clinical Indicators: Treatment: * Acute * Chronic * Acute on Chronic * Unknown * Systolic * Diastolic * Combined Systolic and Diastolic * Unknown <Yeimi Alexis RN - Last Filed: 02/27/22 12:50> Provider Comments acute on chronic combined systolic and diastolic <Hebert Downs MD - Last Filed: 02/27/22 12:58>
--- NOTE | 2022-02-27 12:50 | PM.IMPN ---
Progress Note: A&P Assessment and Plan (1) Respiratory distress: Code(s): R06.03 - Acute respiratory distress Status: Acute Assessment and Plan: Patient was placed on BiPAP with improvement. Treated with steroids and lasix. Wean O2 as tolerated.. Start PT/OT when able. (2) Acute kidney injury: Code(s): N17.9 - Acute kidney failure, unspecified Status: Acute Assessment and Plan: serum creatinine 1.6 trending downwards And gentle hydration. Avoid nephrotoxic drugs. Monitor antihypertensive drugs Avoid NSAIDs. Routine CMP monitor GFR. Monitor electrolytes potassium levels. Dose antibiotics depending on creatinine clearance (3) COPD exacerbation: Code(s): J44.1 - Chronic obstructive pulmonary disease with (acute) exacerbation Status: Acute Assessment and Plan: Patient advice to quit smoking. Bronchodilators. Keeping BMI less than 25. Routine exercises. Pneumoniae and flu vaccines as advised Pulmonary rehab if indicated. For disease management to follow GOLD guidelines. Screen for Vitamine D deficency. Repeat hospitilaztion risk evaluation per CAT. Evaluation for home O2 if saturations less than 88% on room air (4) Diabetes mellitus: Code(s): E11.9 - Type 2 diabetes mellitus without complications Status: Acute Assessment and Plan: Yearly eye exam and foot exam. HBA1c ( goal <7.0%) , Renal functions, Liver panel every 3 months Monitor vitamin B12 levels Optimize MANOJ-inhibitor and statin Routine glucose monitoring. Watch for Hypoglycemia. Plan DVT prophylaxis. GI prophylaxis. All records reviewed Discussed plan of care with the nursing staff and with the patient in detail. Answered all questions and concerns from the patient. All labs have been reviewed. Code status updated dictation may have been done utilizing a voice recognition system. Attempts have been made to correct errors. However, there may be uncorrected grammatical, spelling, and recognition errors present. Subjective Date/time seen: 02/27/22 12:50 Interval history: patient appoints chair no new complaints Review of Systems Review of Systems: All systems reviewed & are unremarkable except as noted in HPI and below Exam Narrative: GENERAL: Well appearing, well-nourished, non-toxic, in no acute distress. HEAD: Normocephalic, atraumatic. NECK: Supple. No adenopathy, no masses. RESPIRATORY: Airway patent, respirations nonlabored. Clear to auscultation bilaterally, no rales, rhonchi, wheezing. CARDIOVASCULAR: Regular rate and rhythm without murmurs, rubs, or gallops. Peripheral pulses 2+ and equal bilaterally. ABDOMINAL: Soft, nontender, nondistended, no hepatosplenomegaly. Normoactive BS. MUSCULOSKELETAL: no Epigastric and no hypochondrial tenderness SKIN: Warm, dry, normal color. No rashes. NEURO: A&O X3. Moves all extremities PSYCHIATRIC: Appropriate mood and affect. Normal interaction. Objective Data Vital Signs Vital Signs: Vital Signs - 24 hr 02/26/22 14:30 02/26/22 14:39 02/26/22 16:00 Temperature 36.1 C L Pulse Rate 76 81 83 Respiratory Rate 20 20 24 H Blood Pressure 134/70 Pulse Oximetry 97 Oxygen Delivery Oxygen Flow Rate 02/26/22 20:00 02/26/22 21:41 02/26/22 21:42 Temperature 36.6 C Pulse Rate 82 79 Respiratory Rate 18 18 Blood Pressure 106/53 L Pulse Oximetry 98 92 Oxygen Delivery Nasal Cannula Oxygen Flow Rate 3 02/26/22 21:53 02/26/22 21:56 02/26/22 20:00 Temperature Pulse Rate 77 77 Respiratory Rate 18 20 Blood Pressure Pulse Oximetry 97 98 Oxygen Delivery BiPAP Nasal Cannula Oxygen Flow Rate 3 02/27/22 00:00 02/27/22 03:29 02/27/22 03:43 Temperature 36.6 C Pulse Rate 61 70 72 Respiratory Rate 24 H 18 18 Blood Pressure 128/70 Pulse Oximetry 100 Oxygen Delivery Oxygen Flow Rate 02/27/22 08:46 02/27/22 08:47 02/27/22 08:00 Temper
--- NOTE | 2022-02-27 13:39 | P.PNNP_ITS ---
Progress Note: A&P Assessment and Plan (1) Acute kidney injury: Code(s): N17.9 - Acute kidney failure, unspecified Status: Acute Assessment and Plan: * improving/stabilizing * possibly new baseline(?) * likely due to sepsis, shock, infection, hypovolemia, rhabdo, and high dose NSAID use * if an element of AIN, already getting steroids (for her COPD) * evaluation to date: * renal ultrasound with right kidney atrophy * urine electrolytes non-prerenal * eosinophils negative * CPK mildly elevated but not enough to affect kidney function * IVFs discontinued due to CXR findings of pulmonary edema * s/p IV diuretics * repeat CXR noted (on 02/25/22) -- may need oral diuretics * follow repeat labs and UOP (2) Stage 3a chronic kidney disease: Code(s): N18.31 - Chronic kidney disease, stage 3a Status: Chronic Assessment and Plan: * creatinine seems to run ~ 1.0 - 1.2mg/dl since March 2020 * however, no intervening labs since October 2020 -- possible component of kidney disease progression? * CKD likely due to HTN, diabetes, vascular disease, age, and recurrent UTIs (3) Septic shock: Code(s): A41.9 - Sepsis, unspecified organism; R65.21 - Severe sepsis with septic shock Status: Acute Assessment and Plan: * presumably from UTI and possibly pneumonia * urine and blood cultures with E.coli * on IV antibiotics * off vasopressors (4) COPD exacerbation: Code(s): J44.1 - Chronic obstructive pulmonary disease with (acute) exacerbation Status: Acute Assessment and Plan: * suspected by wheezing on exam on admission and smoking history * on bronchodilators and completed course of steroids * already on antibiotics as well (5) Elevated troponin: Code(s): R77.8 - Other specified abnormalities of plasma proteins Status: Acute Assessment and Plan: * most likely secondary to shock and sepsis in setting of JUVENAL * however, cannot discount ischemic heart disease * Echo results noted * Cardiology recommendations noted (6) Fall: Code(s): W19.XXXA - Unspecified fall, initial encounter Status: Acute Assessment and Plan: * imaging noted * Head CT without an acute pathology * CT C-spine without fractures * PT/OT as able . (7) Diabetes mellitus: Code(s): E11.9 - Type 2 diabetes mellitus without complications Status: Acute Assessment and Plan: * follow accucheks * glycemic control Will continue to follow. Subjective Date/time seen: 02/27/22 13:39 No apparent distress voiced at the time of my visit; breathing/respiratory sta tus seems stable if not improved; no issues/events overnight or earlier this AM; overall, feels significantly better in compariso to admission. Exam Narrative: General: WD/WN female in NAD Heart: normal S1 and S2; no rub Lungs: coarse breath sounds Abdomen: soft, nontender, nondistended, positive bowel sounds Extremities: no cyanosis or clubbing; no edema Skin: no nodules Objective Data Vital Signs Vital Signs: Vital Signs Temp Pulse Resp BP Pulse Ox O2 Del Method O2 Flow Rate 02/27/22 12:00 36.0 C L 87 24 H 106/42 L 97 02/27/22 08:00 97 Nasal Cannula 2 02/27/22 09:00 70 20 02/27/22 08:00 36.2 C L 91 22 H 138/61 97 02/27/22 08
--- NOTE | 2022-02-27 13:39 | PM.PNNEP ---
Progress Note: A&P Assessment and Plan (1) Acute kidney injury: Code(s): N17.9 - Acute kidney failure, unspecified Status: Acute Assessment and Plan: improving/stabilizing possibly new baseline(?) likely due to sepsis, shock, infection, hypovolemia, rhabdo, and high dose NSAID use if an element of AIN, already getting steroids (for her COPD) evaluation to date: renal ultrasound with right kidney atrophy urine electrolytes non-prerenal eosinophils negative CPK mildly elevated but not enough to affect kidney function IVFs discontinued due to CXR findings of pulmonary edema s/p IV diuretics repeat CXR noted (on 02/25/22) -- may need oral diuretics follow repeat labs and UOP (2) Stage 3a chronic kidney disease: Code(s): N18.31 - Chronic kidney disease, stage 3a Status: Chronic Assessment and Plan: creatinine seems to run ~ 1.0 - 1.2mg/dl since March 2020 however, no intervening labs since October 2020 -- possible component of kidney disease progression? CKD likely due to HTN, diabetes, vascular disease, age, and recurrent UTIs (3) Septic shock: Code(s): A41.9 - Sepsis, unspecified organism; R65.21 - Severe sepsis with septic shock Status: Acute Assessment and Plan: presumably from UTI and possibly pneumonia urine and blood cultures with E.coli on IV antibiotics off vasopressors (4) COPD exacerbation: Code(s): J44.1 - Chronic obstructive pulmonary disease with (acute) exacerbation Status: Acute Assessment and Plan: suspected by wheezing on exam on admission and smoking history on bronchodilators and completed course of steroids already on antibiotics as well (5) Elevated troponin: Code(s): R77.8 - Other specified abnormalities of plasma proteins Status: Acute Assessment and Plan: most likely secondary to shock and sepsis in setting of JUVENAL however, cannot discount ischemic heart disease Echo results noted Cardiology recommendations noted (6) Fall: Code(s): W19.XXXA - Unspecified fall, initial encounter Status: Acute Assessment and Plan: imaging noted Head CT without an acute pathology CT C-spine without fractures PT/OT as able . (7) Diabetes mellitus: Code(s): E11.9 - Type 2 diabetes mellitus without complications Status: Acute Assessment and Plan: follow accucheks glycemic control Will continue to follow. Subjective Date/time seen: 02/27/22 13:39 No apparent distress voiced at the time of my visit; breathing/respiratory status seems stable if not improved; no issues/events overnight or earlier this AM; overall, feels significantly better in compariso to admission. Exam Narrative: General: WD/WN female in NAD Heart: normal S1 and S2; no rub Lungs: coarse breath sounds Abdomen: soft, nontender, nondistended, positive bowel sounds Extremities: no cyanosis or clubbing; no edema Skin: no nodules Objective Data Vital Signs Vital Signs: Vital Signs Temp Pulse Resp BP Pulse Ox O2 Del Method O2 Flow Rate 02/27/22 12:00 36.0 C L 87 24 H 106/42 L 97 02/27/22 08:00 97 Nasal Cannula 2 02/27/22 09:00 70 20 02/27/22 08:00 36.2 C L 91 22 H 138/61 97 02/27/22 08:47 92 Nasal Cannula 3 02/27/22 08:46 72 20 02/27/22 03:43 72 18 02/27/22 03:29 70 18 02/27/22 00:00 36.6 C 61 24 H 128/70 100 02/26/22 20:00 98 Nasal Cannula 3 02/26/22 21:56 77 20 97 BiPAP 02/26/22 21:53 77 18 02/26/22 21:42 92 Nasal Cannula 3 02/26/22 21:41 79 18 02/26/22 20:00 36.6 C 82 18 106/53 L 98 02/26/22 16:00 36.1 C L 83 24 H 134/70 97 02/26/22 14:39 81 20 Intake/Output Intake/Output: Intake & Output 02/24/22 02/25/22 02/26/22 02/27/22 23:59 23:59 23:59 23:59 Intake Total 1031 1710 2180 1100 Output
[2022-02-27] MEDS: DOCUSATE SODIUM LIQ 100 MG/10 ML UDC 50 MG PO (13:52)
[2022-02-27] MEDS: EZETIMIBE 10 MG TABLET PO (13:52)
[2022-02-27] MEDS: INDAPAMIDE 1.25 MG TABLET PO (13:52)
--- NOTE | 2022-02-27 14:16 | PCPTNOTE ---
Attempted to see patient for PT at this time, however patient declined. Patient reported she has been up to the chair and walked to the commode, and that she wanted to take a nap at this time.
[2022-02-27 14:24] LABS: Alanine Aminotransferase 26 U/L (6-35); Albumin Level 3.6 g/dL (3.5-5.1); Alkaline Phosphatase 54 U/L (38-126); Anion Gap 6 mmol/L (8-16); Aspartate Amino Transferase 33 U/L (14-36); Bilirubin,Total 0.4 mg/dL (0.2-1.3); Blood Urea Nitrogen 37 mg/dL (7-17); Carbon Dioxide 29 mmol/L (22-30); Chloride 99 mmol/L (98-107); Estimated CRCL calculation 35 ml/min; Estimated Glomerular Filt Rate 32; Glucose 125 mg/dL (65-110); Potassium 3.2 mmol/L (3.4-5.0); Sodium 134 mmol/L (137-145)
[2022-02-27 14:25] LABS: Hematocrit 38.4 % (37.0-47.0); Hemoglobin 11.7 g/dL (12.0-15.0); Mean Corpuscular HGB Conc 30.5 g/dl (32-36); Mean Corpuscular Hemoglobin 24.6 pg (26-34); Mean Corpuscular Volume 80.8 fl (80-100); Mean Platelet Volume 9.3 fl (7.4-10.4); Platelet Count Result 383 k/mm3 (150-375); Red Blood Count 4.75 M/mm3 (4.2-5.4); Red Cell Distribution Width 18.6 % (11.5-14.5); White Blood Count 13.9 K/mm3 (4.5-10.0)
[2022-02-27 16:05] LABS: Chloride Rand Ur 55 mmol/L (32-290); Chloride/Creatinine Rand Ur 120 (38-318); Creatinine Random Urine 46 mg/dL (20-275)
[2022-02-27] MEDS: POTASSIUM CITRATE 5 MEQ TAB CR 10 MEQ PO (16:46)
[2022-02-27 17:24] LABS: Glucose Point of Care 119 mg/dl (65-105)
--- NOTE | 2022-02-27 18:12 | PC.NURSE ---
Report given to [facility] with [address] [place] [address]. Patient to move to room 259.
[2022-02-27 20:02] LABS: Glucose Point of Care 118 mg/dl (65-105)
[2022-02-28] VITALS (15 sets, daily range): BP systolic 110–148; BP diastolic 45–56; PULSE 72–105; RESP 16–26; TEMP 36.3–36.7; O2SAT 93–96
[2022-02-28] MEDS: IPRATROPIUM BR 0.02% INH SOLN 0.5 MG/2.5 ML VIAL INHALATION ×4 (02:48→21:13)
[2022-02-28] MEDS: ALBUTEROL SULFATE NEB 2.5 MG/3 ML INH INHALATION ×4 (02:48→21:13)
[2022-02-28 07:45] LABS: Basophils Absolute Auto 0.1 K/mm3 (0.0-0.1); Basophils Percent Auto 0.5 % (0.2-1.2); Eosinophils Absolute Auto 0.3 K/mm3 (0-0.3); Eosinophils Percent Auto 1.9 % (0-4.4); Hematocrit 35.6 % (37.0-47.0); Hemoglobin 11.2 g/dL (12.0-15.0); Immature Granulocyte Absolute 0.36 K/mm3 (0.00-0.031); Immature Granulocyte Percent A 2.4 % (0-0.5); Lymphocytes Absolute Auto 1.75 K/mm3 (0.9-3.2); Lymphocytes Percent Auto 11.7 % (18.3-44.2); Mean Corpuscular HGB Conc 31.5 g/dl (32-36); Mean Corpuscular Hemoglobin 24.3 pg (26-34); Mean Corpuscular Volume 77.4 fl (80-100); Monocytes Absolute Auto 0.8 K/mm3 (0.1-0.6); Monocytes Percent Auto 5.6 % (2.6-8.5); Neutrophils Absolute Auto 11.6 K/mm3 (1.3-6.7); Neutrophils Percent Auto 77.9 % (45.5-73.1); Platelet Count Result 367 k/mm3 (150-375); Red Cell Distribution Width 18.5 % (11.5-14.5); White Blood Count 14.9 K/mm3 (4.5-10.0)
[2022-02-28 08:00] LABS: Albumin Level 3.5 g/dL (3.5-5.1); Anion Gap 7 mmol/L (8-16); Blood Urea Nitrogen 34 mg/dL (7-17); Calcium 8.9 mg/dL (8.4-10.2); Carbon Dioxide 26 mmol/L (22-30); Chloride 104 mmol/L (98-107); Estimated CRCL calculation 42 ml/min; Estimated Glomerular Filt Rate 40; Glucose 133 mg/dL (65-110); Phosphorus 3.3 mg/dL (2.5-4.5); Potassium 3.4 mmol/L (3.4-5.0); Sodium 137 mmol/L (137-145)
[2022-02-28 08:28] LABS: Glucose Point of Care 142 mg/dl (65-105)
[2022-02-28] MEDS: ATORVASTATIN 10 MG TABLET PO (08:45)
[2022-02-28] MEDS: POTASSIUM CITRATE 5 MEQ TAB CR 10 MEQ PO (08:45)
[2022-02-28] MEDS: SERTRALINE HCL 50 MG TABLET 100 MG PO (08:45)
[2022-02-28] MEDS: INDAPAMIDE 1.25 MG TABLET PO (08:45)
[2022-02-28] MEDS: DOCUSATE SODIUM LIQ 100 MG/10 ML UDC 50 MG PO (08:45)
[2022-02-28] MEDS: APIXABAN 5 MG TABLET PO ×2 (08:45→20:49)
[2022-02-28] MEDS: EZETIMIBE 10 MG TABLET PO (08:45)
[2022-02-28] MEDS: CLOPIDOGREL BISULFATE 75 MG TABLET PO (08:45)
[2022-02-28] MEDS: NICOTINE (*PBKC) 14 MG PATCH 1 PATCH TRANSDERM (08:46)
[2022-02-28] MEDS: BETAMETHASONE/CLOTRIMAZOLE CR 15 GM TUBE 1 APPLIC TOPICAL ×2 (08:46→18:13)
[2022-02-28] MEDS: TOLNAFTATE 1% POWDER 45 GM BTL 1 APPLIC TOPICAL ×2 (08:48→20:49)
[2022-02-28 09:00] LABS: Alanine Aminotransferase 26 U/L (6-35); Albumin Level 3.4 g/dL (3.5-5.1); Alkaline Phosphatase 60 U/L (38-126); Anion Gap 8 mmol/L (8-16); Aspartate Amino Transferase 55 U/L (14-36); Bilirubin,Total 0.8 mg/dL (0.2-1.3); Blood Urea Nitrogen 34 mg/dL (7-17); Carbon Dioxide 26 mmol/L (22-30); Chloride 103 mmol/L (98-107); Estimated CRCL calculation 42 ml/min; Estimated Glomerular Filt Rate 40; Glucose 131 mg/dL (65-110); Potassium 3.4 mmol/L (3.4-5.0); Sodium 137 mmol/L (137-145)
--- NOTE | 2022-02-28 10:26 | PM.IMPN ---
Progress Note: A&P Assessment and Plan (1) Respiratory distress: Code(s): R06.03 - Acute respiratory distress Status: Acute Assessment and Plan: Treated with steroids and lasix. Wean O2 as tolerated.. Start PT/OT when able. (2) Acute kidney injury: Code(s): N17.9 - Acute kidney failure, unspecified Status: Acute Assessment and Plan: serum creatinine 1.3 trending downwards And gentle hydration. Avoid nephrotoxic drugs. Monitor antihypertensive drugs Avoid NSAIDs. (3) COPD exacerbation: Code(s): J44.1 - Chronic obstructive pulmonary disease with (acute) exacerbation Status: Acute Assessment and Plan: Patient advice to quit smoking. Bronchodilators. Keeping BMI less than 25. Routine exercises. Evaluation for home O2 if saturations less than 88% on room air (4) Diabetes mellitus: Code(s): E11.9 - Type 2 diabetes mellitus without complications Status: Acute Assessment and Plan: HBA1c Pending ( goal <7.0%) , Renal functions, Liver panel every 3 months Monitor vitamin B12 levels Optimize MANOJ-inhibitor and statin Routine glucose monitoring. Watch for Hypoglycemia. (5) Pneumonia: Code(s): J18.9 - Pneumonia, unspecified organism Status: Acute Assessment and Plan: will continue ceftriaxone and Zithromax. High WBC count could be secondary to use of steroid. Patient should be ready to discharge by tomorrow blood cultures and urine also positive for E coli Plan DVT prophylaxis. GI prophylaxis. All records reviewed Discussed plan of care with the nursing staff and with the patient in detail. Answered all questions and concerns from the patient. All labs have been reviewed. Code status updated dictation may have been done utilizing a voice recognition system. Attempts have been made to correct errors. However, there may be uncorrected grammatical, spelling, and recognition errors present. Subjective Date/time seen: 02/28/22 10:27 Interval history: patient appoints chair no new complaints Review of Systems Review of Systems: All systems reviewed & are unremarkable except as noted in HPI and below ROS unobtainable: Yes unobtainable due to medical condition Exam Narrative: GENERAL: Well appearing, well-nourished, non-toxic, in no acute distress. HEAD: Normocephalic, atraumatic. NECK: Supple. No adenopathy, no masses. RESPIRATORY: Airway patent, respirations nonlabored. Clear to auscultation bilaterally, no rales, rhonchi, wheezing. CARDIOVASCULAR: Regular rate and rhythm without murmurs, rubs, or gallops. Peripheral pulses 2+ and equal bilaterally. ABDOMINAL: Soft, nontender, nondistended, no hepatosplenomegaly. Normoactive BS. MUSCULOSKELETAL: no Epigastric and no hypochondrial tenderness SKIN: Warm, dry, normal color. No rashes. NEURO: A&O X3. Moves all extremities PSYCHIATRIC: Appropriate mood and affect. Normal interaction. Objective Data Vital Signs Vital Signs: Vital Signs - 24 hr 02/27/22 12:00 02/27/22 14:07 02/27/22 14:17 Temperature 36.0 C L Pulse Rate 87 78 75 Respiratory Rate 24 H 20 20 Blood Pressure 106/42 L Pulse Oximetry 97 Oxygen Delivery Oxygen Flow Rate Fraction of Inspired Oxygen 02/27/22 16:00 02/27/22 20:00 02/27/22 20:00 Temperature 36.2 C L 36.0 C L Pulse Rate 78 78 85 Respiratory Rate 20 20 20 Blood Pressure 128/52 L 132/48 L Pulse Oximetry 95 95 94 Oxygen Delivery Nasal Cannula Oxygen Flow Rate 3 Fraction of Inspired Oxygen 26 02/27/22 21:00 02/27/22 21:07 02/27/22 23:45 Temperature Pulse Rate 76 78 91 Respiratory Rate 18 20 Blood Pressure Pulse Oximetry 96 Oxygen Delivery Nasal Cannula Oxygen Flow Rate 2 Fraction of Inspired Oxygen 02/28/22 00:00 02/28/22 00:29 02/28/22 02:57 Temperature 36.3 C L Pulse Rate 99 99 83 Respiratory Rate 18 22 H 26 H Blood Pressure 135/56
[2022-02-28 11:55] LABS: Hemoglobin A1C 7.2 % (<5.7)
--- NOTE | 2022-02-28 12:06 | PM.PNNEP ---
Progress Note: A&P Assessment and Plan (1) Acute kidney injury: Code(s): N17.9 - Acute kidney failure, unspecified Status: Acute Assessment and Plan: improving/stabilizing likely due to sepsis, shock, infection, hypovolemia, rhabdo, and high dose NSAID use if an element of AIN, already getting steroids (for her COPD) evaluation to date: renal ultrasound with right kidney atrophy urine electrolytes non-prerenal eosinophils negative CPK mildly elevated but not enough to affect kidney function IVFs discontinued due to CXR findings of pulmonary edema s/p IV diuretics follow repeat labs and UOP (2) Stage 3a chronic kidney disease: Code(s): N18.31 - Chronic kidney disease, stage 3a Status: Chronic Assessment and Plan: creatinine seems to run ~ 1.0 - 1.2mg/dl since March 2020 however, no intervening labs since October 2020 -- possible component of kidney disease progression? CKD likely due to HTN, diabetes, vascular disease, age, and recurrent UTIs (3) Septic shock: Code(s): A41.9 - Sepsis, unspecified organism; R65.21 - Severe sepsis with septic shock Status: Acute Assessment and Plan: presumably from UTI and possibly pneumonia urine and blood cultures with E.coli on IV antibiotics off vasopressors (4) COPD exacerbation: Code(s): J44.1 - Chronic obstructive pulmonary disease with (acute) exacerbation Status: Acute Assessment and Plan: suspected by wheezing on exam on admission and smoking history on bronchodilators and completed course of steroids already on antibiotics as well repeat CXR tomorrow (5) Elevated troponin: Code(s): R77.8 - Other specified abnormalities of plasma proteins Status: Acute Assessment and Plan: most likely secondary to shock and sepsis in setting of JUVENAL however, cannot discount ischemic heart disease Echo results noted Cardiology recommendations noted (6) Fall: Code(s): W19.XXXA - Unspecified fall, initial encounter Status: Acute Assessment and Plan: imaging noted Head CT without an acute pathology CT C-spine without fractures PT/OT as able . (7) Diabetes mellitus: Code(s): E11.9 - Type 2 diabetes mellitus without complications Status: Acute Assessment and Plan: follow accucheks glycemic control Will continue to follow. Subjective Date/time seen: 02/28/22 12:06 No new complaints voiced at the time of my visit; renal function appears to be stabilizing/improving with ongoing supportive therapy; no apparent issues/events overnight or earlier this morning; no apparent distress voiced. Exam Narrative: General: WD/WN female in NAD Heart: normal S1 and S2; no rub Lungs: coarse breath sounds Abdomen: soft, nontender, nondistended, positive bowel sounds Extremities: no cyanosis or clubbing; no edema Skin: warm and dry Objective Data Vital Signs Vital Signs: Vital Signs Temp Pulse Resp BP Pulse Ox O2 Del Method O2 Flow Rate 02/28/22 11:32 105 H 18 93 Nasal Cannula 2 02/28/22 10:59 36.4 C L 85 18 115/46 L 95 02/28/22 08:00 96 Nasal Cannula 2 02/28/22 09:32 105 H 20 02/28/22 09:24 105 H 20 02/28/22 09:18 Nasal Cannula 2 02/28/22 04:00 36.4 C L 100 20 110/48 L 96 02/28/22 02:57 83 26 H 02/28/22 02:57 83 26 H 93 BiPAP 02/28/22 00:29 99 22 H 96 BiPAP 02/28/22 00:00 36.3 C L 99 18 135/56 L 94 02/27/22 23:45 91 96 Nasal Cannula 2 02/27/22 21:07 78 20 02/27/22 21:00 76 18 02/27/22 20:00 36.0 C L 85 20 132/48 L 94 02/27/22 20:00 78 20 95 Nasal Cannula 3 02/27/22 16:00 36.2 C L 78 20 128/52 L 95 02/27/22 14:17 75 20 02/27/22 14:07 78 20 Intake/Output Intake/Output: Intake & Output 02/25/22 02/26/22 02/27/22 02/28/22 23:59 23:59 23:59 23
--- NOTE | 2022-02-28 12:06 | P.PNNP_ITS ---
Progress Note: A&P Assessment and Plan (1) Acute kidney injury: Code(s): N17.9 - Acute kidney failure, unspecified Status: Acute Assessment and Plan: * improving/stabilizing * likely due to sepsis, shock, infection, hypovolemia, rhabdo, and high dose NSAID use * if an element of AIN, already getting steroids (for her COPD) * evaluation to date: * renal ultrasound with right kidney atrophy * urine electrolytes non-prerenal * eosinophils negative * CPK mildly elevated but not enough to affect kidney function * IVFs discontinued due to CXR findings of pulmonary edema * s/p IV diuretics * follow repeat labs and UOP (2) Stage 3a chronic kidney disease: Code(s): N18.31 - Chronic kidney disease, stage 3a Status: Chronic Assessment and Plan: * creatinine seems to run ~ 1.0 - 1.2mg/dl since March 2020 * however, no intervening labs since October 2020 -- possible component of kidney disease progression? * CKD likely due to HTN, diabetes, vascular disease, age, and recurrent UTIs (3) Septic shock: Code(s): A41.9 - Sepsis, unspecified organism; R65.21 - Severe sepsis with septic shock Status: Acute Assessment and Plan: * presumably from UTI and possibly pneumonia * urine and blood cultures with E.coli * on IV antibiotics * off vasopressors (4) COPD exacerbation: Code(s): J44.1 - Chronic obstructive pulmonary disease with (acute) exacerbation Status: Acute Assessment and Plan: * suspected by wheezing on exam on admission and smoking history * on bronchodilators and completed course of steroids * already on antibiotics as well * repeat CXR tomorrow (5) Elevated troponin: Code(s): R77.8 - Other specified abnormalities of plasma proteins Status: Acute Assessment and Plan: * most likely secondary to shock and sepsis in setting of JUVENAL * however, cannot discount ischemic heart disease * Echo results noted * Cardiology recommendations noted (6) Fall: Code(s): W19.XXXA - Unspecified fall, initial encounter Status: Acute Assessment and Plan: * imaging noted * Head CT without an acute pathology * CT C-spine without fractures * PT/OT as able . (7) Diabetes mellitus: Code(s): E11.9 - Type 2 diabetes mellitus without complications Status: Acute Assessment and Plan: * follow accucheks * glycemic control Will continue to follow. Subjective Date/time seen: 02/28/22 12:06 No new complaints voiced at the time of my visit; renal function appears to be stabilizing/improving with ongoing supportive therapy; no apparent issues/events overnight or earlier this morning; no apparent distress voiced. Exam Narrative: General: WD/WN female in NAD Heart: normal S1 and S2; no rub Lungs: coarse breath sounds Abdomen: soft, nontender, nondistended, positive bowel sounds Extremities: no cyanosis or clubbing; no edema Skin: warm and dry Objective Data Vital Signs Vital Signs: Vital Signs Temp Pulse Resp BP Pulse Ox O2 Del Method O2 Flow Rate 02/28/22 11:32 105 H 18 93 Nasal Cannula 2 02/28/22 10:59 36.4 C L 85 18 115/46 L 95 02/28/22 08:00 96 Nasal Cannula 2 02/28/22 09:32 105 H 20 02/28/22 09:24 105 H 20 02/28/22 09:18 Nasal Cannula 2
[2022-02-28 12:34] LABS: Glucose Point of Care 143 mg/dl (65-105)
[2022-02-28] MEDS: cefTRIAXone 2 GM in SODIUM CHLORIDE 0.9% IV 100 ML 200 ML IVPB (12:38)
[2022-02-28 17:20] LABS: Glucose Point of Care 147 mg/dl (65-105)
[2022-02-28 21:01] LABS: Glucose Point of Care 210 mg/dl (65-105)
[2022-03-01] VITALS (12 sets, daily range): BP systolic 116–140; BP diastolic 40–65; PULSE 74–92; RESP 14–20; TEMP 36.3–37.2; O2SAT 94–97
[2022-03-01] MEDS: ALBUTEROL SULFATE NEB 2.5 MG/3 ML INH INHALATION ×4 (01:59→21:53)
[2022-03-01] MEDS: IPRATROPIUM BR 0.02% INH SOLN 0.5 MG/2.5 ML VIAL INHALATION ×4 (02:00→21:53)
[2022-03-01 04:50] LABS: Basophils Absolute Auto 0.1 K/mm3 (0.0-0.1); Basophils Percent Auto 0.5 % (0.2-1.2); Eosinophils Absolute Auto 0.3 K/mm3 (0-0.3); Hematocrit 34.5 % (37.0-47.0); Hemoglobin 10.9 g/dL (12.0-15.0); Immature Granulocyte Percent A 1.3 % (0-0.5); Lymphocytes Absolute Auto 1.97 K/mm3 (0.9-3.2); Lymphocytes Percent Auto 12.5 % (18.3-44.2); Mean Corpuscular HGB Conc 31.6 g/dl (32-36); Mean Corpuscular Hemoglobin 24.6 pg (26-34); Mean Corpuscular Volume 77.9 fl (80-100); Mean Platelet Volume 9.1 fl (7.4-10.4); Monocytes Absolute Auto 0.7 K/mm3 (0.1-0.6); Monocytes Percent Auto 4.5 % (2.6-8.5); Neutrophils Absolute Auto 12.4 K/mm3 (1.3-6.7); Neutrophils Percent Auto 79.2 % (45.5-73.1); Platelet Count Result 363 k/mm3 (150-375); Red Blood Count 4.43 M/mm3 (4.2-5.4); Red Cell Distribution Width 18.6 % (11.5-14.5); White Blood Count 15.7 K/mm3 (4.5-10.0)
[2022-03-01 05:05] LABS: Albumin Level 3.5 g/dL (3.5-5.1); Anion Gap 7 mmol/L (8-16); Blood Urea Nitrogen 27 mg/dL (7-17); Calcium 8.8 mg/dL (8.4-10.2); Carbon Dioxide 27 mmol/L (22-30); Chloride 103 mmol/L (98-107); Estimated CRCL calculation 45 ml/min; Estimated Glomerular Filt Rate 44; Glucose 122 mg/dL (65-110); Phosphorus 3.4 mg/dL (2.5-4.5); Potassium 3.3 mmol/L (3.4-5.0); Sodium 137 mmol/L (137-145)
[2022-03-01 08:45] LABS: Glucose Point of Care 155 mg/dl (65-105)
[2022-03-01] MEDS: DOCUSATE SODIUM LIQ 100 MG/10 ML UDC 50 MG PO (09:42)
[2022-03-01] MEDS: ATORVASTATIN 10 MG TABLET PO (09:42)
[2022-03-01] MEDS: SERTRALINE HCL 50 MG TABLET 100 MG PO (09:42)
[2022-03-01] MEDS: CLOPIDOGREL BISULFATE 75 MG TABLET PO (09:42)
[2022-03-01] MEDS: POTASSIUM CITRATE 5 MEQ TAB CR 10 MEQ PO (09:42)
[2022-03-01] MEDS: INDAPAMIDE 1.25 MG TABLET PO (09:42)
[2022-03-01] MEDS: EZETIMIBE 10 MG TABLET PO (09:42)
[2022-03-01] MEDS: APIXABAN 5 MG TABLET PO ×2 (09:42→20:57)
[2022-03-01] MEDS: TOLNAFTATE 1% POWDER 45 GM BTL 1 APPLIC TOPICAL ×2 (09:43→20:58)
[2022-03-01] MEDS: BETAMETHASONE/CLOTRIMAZOLE CR 15 GM TUBE 1 APPLIC TOPICAL ×2 (09:43→17:32)
[2022-03-01] MEDS: NICOTINE (*PBKC) 14 MG PATCH 1 PATCH TRANSDERM (09:43)
--- NOTE | 2022-03-01 10:04 | P.PNIM_ITS ---
Progress Note: A&P Assessment and Plan (1) Acute kidney injury: Code(s): N17.9 - Acute kidney failure, unspecified Status: Acute Assessment and Plan: * improving/stabilizing * likely due to sepsis, shock, infection, hypovolemia, rhabdo, and high dose NSAID use * if an element of AIN, already getting steroids (for her COPD) * evaluation to date: * renal ultrasound with right kidney atrophy * urine electrolytes non-prerenal * eosinophils negative * CPK mildly elevated but not enough to affect kidney function * IVFs discontinued due to CXR findings of pulmonary edema * s/p IV diuretics * follow repeat labs and UOP (2) Stage 3a chronic kidney disease: Code(s): N18.31 - Chronic kidney disease, stage 3a Status: Chronic Assessment and Plan: * CKD likely due to HTN, diabetes, vascular disease, age, and recurrent UTIs (3) Septic shock: Code(s): A41.9 - Sepsis, unspecified organism; R65.21 - Severe sepsis with septic shock Status: Acute Assessment and Plan: * presumably from UTI and possibly pneumonia * urine and blood cultures with E.coli * on IV antibiotics * off vasopressors (4) COPD exacerbation: Code(s): J44.1 - Chronic obstructive pulmonary disease with (acute) exacerbation Status: Acute Assessment and Plan: * on bronchodilators and completed course of steroids * already on antibiotics as well (5) Elevated troponin: Code(s): R77.8 - Other specified abnormalities of plasma proteins Status: Acute Assessment and Plan: * most likely secondary to shock and sepsis in setting of JUVENAL * however, cannot discount ischemic heart disease * Echo results noted * Cardiology recommendations noted (6) Fall: Code(s): W19.XXXA - Unspecified fall, initial encounter Status: Acute Assessment and Plan: * imaging noted * Head CT without an acute pathology * CT C-spine without fractures * PT/OT as able . (7) Diabetes mellitus: Code(s): E11.9 - Type 2 diabetes mellitus without complications Status: Acute Assessment and Plan: * follow accucheks * glycemic control Plan pending placement to rehab Subjective Date/time seen: 03/01/22 10:04 no change overnight Review of Systems Review of Systems: All systems reviewed & are unremarkable except as noted in HPI and below Exam Narrative: General: WD/WN female in NAD Heart: normal S1 and S2; no rub Lungs: coarse breath sounds Abdomen: soft, nontender, nondistended, positive bowel sounds Extremities: no cyanosis or clubbing; no edema Skin: warm and dry Objective Data Vital Signs Vital Signs: Vital Signs - 24 hr 02/28/22 10:59 02/28/22 11:32 02/28/22 13:47 Temperature 97.5 F L Pulse Rate 85 105 H 83 Respiratory Rate 18 18 18 Blood Pressure 115/46 L Pulse Oximetry 95 93 Oxygen Delivery Nasal Cannula Oxygen Flow Rate 2 02/28/22 14:03 02/28/22 17:14 02/28/22 20:00 Temperature 98.1 F 97.3 F L Pulse Rate 84 72 79 Respiratory Rate 18 18 20 Blood Pressure 131/52 L 127/51 L Pulse Oximetry 95 95 Oxygen Delivery Oxygen Flow Rate 02/28/22 20:00 02/28/22 21:13 02/28/22 23:
--- NOTE | 2022-03-01 10:04 | PM.IMPN ---
Progress Note: A&P Assessment and Plan (1) Acute kidney injury: Code(s): N17.9 - Acute kidney failure, unspecified Status: Acute Assessment and Plan: improving/stabilizing likely due to sepsis, shock, infection, hypovolemia, rhabdo, and high dose NSAID use if an element of AIN, already getting steroids (for her COPD) evaluation to date: renal ultrasound with right kidney atrophy urine electrolytes non-prerenal eosinophils negative CPK mildly elevated but not enough to affect kidney function IVFs discontinued due to CXR findings of pulmonary edema s/p IV diuretics follow repeat labs and UOP (2) Stage 3a chronic kidney disease: Code(s): N18.31 - Chronic kidney disease, stage 3a Status: Chronic Assessment and Plan: CKD likely due to HTN, diabetes, vascular disease, age, and recurrent UTIs (3) Septic shock: Code(s): A41.9 - Sepsis, unspecified organism; R65.21 - Severe sepsis with septic shock Status: Acute Assessment and Plan: presumably from UTI and possibly pneumonia urine and blood cultures with E.coli on IV antibiotics off vasopressors (4) COPD exacerbation: Code(s): J44.1 - Chronic obstructive pulmonary disease with (acute) exacerbation Status: Acute Assessment and Plan: on bronchodilators and completed course of steroids already on antibiotics as well (5) Elevated troponin: Code(s): R77.8 - Other specified abnormalities of plasma proteins Status: Acute Assessment and Plan: most likely secondary to shock and sepsis in setting of JUVENAL however, cannot discount ischemic heart disease Echo results noted Cardiology recommendations noted (6) Fall: Code(s): W19.XXXA - Unspecified fall, initial encounter Status: Acute Assessment and Plan: imaging noted Head CT without an acute pathology CT C-spine without fractures PT/OT as able . (7) Diabetes mellitus: Code(s): E11.9 - Type 2 diabetes mellitus without complications Status: Acute Assessment and Plan: follow accucheks glycemic control Plan pending placement to rehab Subjective Date/time seen: 03/01/22 10:04 no change overnight Review of Systems Review of Systems: All systems reviewed & are unremarkable except as noted in HPI and below Exam Narrative: General: WD/WN female in NAD Heart: normal S1 and S2; no rub Lungs: coarse breath sounds Abdomen: soft, nontender, nondistended, positive bowel sounds Extremities: no cyanosis or clubbing; no edema Skin: warm and dry Objective Data Vital Signs Vital Signs: Vital Signs - 24 hr 02/28/22 10:59 02/28/22 11:32 02/28/22 13:47 Temperature 97.5 F L Pulse Rate 85 105 H 83 Respiratory Rate 18 18 18 Blood Pressure 115/46 L Pulse Oximetry 95 93 Oxygen Delivery Nasal Cannula Oxygen Flow Rate 2 02/28/22 14:03 02/28/22 17:14 02/28/22 20:00 Temperature 98.1 F 97.3 F L Pulse Rate 84 72 79 Respiratory Rate 18 18 20 Blood Pressure 131/52 L 127/51 L Pulse Oximetry 95 95 Oxygen Delivery Oxygen Flow Rate 02/28/22 20:00 02/28/22 21:13 02/28/22 23:33 Temperature 97.4 F L Pulse Rate 94 93 Respiratory Rate 16 18 Blood Pressure 148/45 H Pulse Oximetry 95 94 Oxygen Delivery Nasal Cannula Oxygen Flow Rate 2 03/01/22 02:01 03/01/22 03:53 03/01/22 09:44 Temperature 97.3 F L Pulse Rate 74 83 87 Respiratory Rate 15 18 18 Blood Pressure 140/40 L Pulse Oximetry 94 94 Oxygen Delivery Oxygen Flow Rate 2 03/01/22 09:47 Temperature Pulse Rate Respiratory Rate Blood Pressure Pulse Oximetry 95 Oxygen Delivery Room Air Oxygen Flow Rate Intake/Output Intake/Output: Intake & Output 02/26/22 02/27/22 02/28/22 03/01/22 23:59 23:59 23:59 23:59 Intake Total 2180 / 2180 2610 / 2610 1240 / 1240 660 / 660 Output Total 2450 / 2450 2250 / 2250 1750 / 1750 750 / 7
--- NOTE | 2022-03-01 11:46 | P.PNNP_ITS ---
Progress Note: A&P Assessment and Plan (1) Acute kidney injury: Code(s): N17.9 - Acute kidney failure, unspecified Status: Acute Assessment and Plan: * improving/stabilizing * likely due to sepsis, shock, infection, hypovolemia, rhabdo, and high dose NSAID use * if an element of AIN, received a course of steroids (for her COPD) * evaluation to date: * renal ultrasound with right kidney atrophy * urine electrolytes non-prerenal * eosinophils negative * CPK mildly elevated but not enough to affect kidney function * IVFs discontinued due to previous CXR findings of pulmonary edema * s/p IV diuretics * on indapamide * follow repeat labs and UOP (2) Stage 3a chronic kidney disease: Code(s): N18.31 - Chronic kidney disease, stage 3a Status: Chronic Assessment and Plan: * creatinine seems to run ~ 1.0 - 1.2mg/dl since March 2020 * however, no intervening labs since October 2020 -- possible component of kidney disease progression? * CKD likely due to HTN, diabetes, vascular disease, age, and recurrent UTIs (3) Septic shock: Code(s): A41.9 - Sepsis, unspecified organism; R65.21 - Severe sepsis with septic shock Status: Acute Assessment and Plan: * presumably from UTI and possibly pneumonia * urine and blood cultures with E.coli * on IV antibiotics * off vasopressors (4) COPD exacerbation: Code(s): J44.1 - Chronic obstructive pulmonary disease with (acute) exacerbation Status: Acute Assessment and Plan: * suspected by wheezing on exam on admission and smoking history * on bronchodilators and completed course of steroids * already on antibiotics as well * follow-up on CXR results today (5) Elevated troponin: Code(s): R77.8 - Other specified abnormalities of plasma proteins Status: Acute Assessment and Plan: * most likely secondary to shock and sepsis in setting of JUVENAL * however, cannot discount ischemic heart disease * Echo results noted * Cardiology recommendations noted (6) Fall: Code(s): W19.XXXA - Unspecified fall, initial encounter Status: Acute Assessment and Plan: * imaging noted * Head CT without an acute pathology * CT C-spine without fractures * PT/OT as able . (7) Diabetes mellitus: Code(s): E11.9 - Type 2 diabetes mellitus without complications Status: Acute Assessment and Plan: * follow accucheks * glycemic control Not much else to add at this time -- will continue to follow from a distance. Subjective Date/time seen: 03/01/22 11:46 No new complaints voiced at this time; overall, feels reasonably well; no issues/events overnight or earlier this morning; breathing/respiratory status seems stable; no apparent distress to report. Exam Narrative: General: WD/WN female in NAD Heart: normal S1 and S2; no rub Lungs: coarse breath sounds Abdomen: soft, nontender, nondistended, positive bowel sounds Extremities: no cyanosis or clubbing; no edema Skin: warm and intact Objective Data Vital Signs Vital Signs: Vital Signs Temp Pulse Resp BP Pulse Ox O2 Del Method O2 Flow Rate 03/01/22 08:00 36.3 C L 92 14 117/65 95 03/01/22 09:47 95 Room Air 03/01/22 09:44 87 18 94 2 03/01/22 03:53 36.3 C L 83 18 140/40 L 94 03/01/22 02:01
--- NOTE | 2022-03-01 11:46 | PM.PNNEP ---
Progress Note: A&P Assessment and Plan (1) Acute kidney injury: Code(s): N17.9 - Acute kidney failure, unspecified Status: Acute Assessment and Plan: improving/stabilizing likely due to sepsis, shock, infection, hypovolemia, rhabdo, and high dose NSAID use if an element of AIN, received a course of steroids (for her COPD) evaluation to date: renal ultrasound with right kidney atrophy urine electrolytes non-prerenal eosinophils negative CPK mildly elevated but not enough to affect kidney function IVFs discontinued due to previous CXR findings of pulmonary edema s/p IV diuretics on indapamide follow repeat labs and UOP (2) Stage 3a chronic kidney disease: Code(s): N18.31 - Chronic kidney disease, stage 3a Status: Chronic Assessment and Plan: creatinine seems to run ~ 1.0 - 1.2mg/dl since March 2020 however, no intervening labs since October 2020 -- possible component of kidney disease progression? CKD likely due to HTN, diabetes, vascular disease, age, and recurrent UTIs (3) Septic shock: Code(s): A41.9 - Sepsis, unspecified organism; R65.21 - Severe sepsis with septic shock Status: Acute Assessment and Plan: presumably from UTI and possibly pneumonia urine and blood cultures with E.coli on IV antibiotics off vasopressors (4) COPD exacerbation: Code(s): J44.1 - Chronic obstructive pulmonary disease with (acute) exacerbation Status: Acute Assessment and Plan: suspected by wheezing on exam on admission and smoking history on bronchodilators and completed course of steroids already on antibiotics as well follow-up on CXR results today (5) Elevated troponin: Code(s): R77.8 - Other specified abnormalities of plasma proteins Status: Acute Assessment and Plan: most likely secondary to shock and sepsis in setting of JUVENAL however, cannot discount ischemic heart disease Echo results noted Cardiology recommendations noted (6) Fall: Code(s): W19.XXXA - Unspecified fall, initial encounter Status: Acute Assessment and Plan: imaging noted Head CT without an acute pathology CT C-spine without fractures PT/OT as able . (7) Diabetes mellitus: Code(s): E11.9 - Type 2 diabetes mellitus without complications Status: Acute Assessment and Plan: follow accucheks glycemic control Not much else to add at this time -- will continue to follow from a distance. Subjective Date/time seen: 03/01/22 11:46 No new complaints voiced at this time; overall, feels reasonably well; no issues/events overnight or earlier this morning; breathing/respiratory status seems stable; no apparent distress to report. Exam Narrative: General: WD/WN female in NAD Heart: normal S1 and S2; no rub Lungs: coarse breath sounds Abdomen: soft, nontender, nondistended, positive bowel sounds Extremities: no cyanosis or clubbing; no edema Skin: warm and intact Objective Data Vital Signs Vital Signs: Vital Signs Temp Pulse Resp BP Pulse Ox O2 Del Method O2 Flow Rate 03/01/22 08:00 36.3 C L 92 14 117/65 95 03/01/22 09:47 95 Room Air 03/01/22 09:44 87 18 94 2 03/01/22 03:53 36.3 C L 83 18 140/40 L 94 03/01/22 02:01 74 15 02/28/22 23:33 36.3 C L 93 18 148/45 H 94 02/28/22 21:13 94 16 02/28/22 20:00 95 Nasal Cannula 2 02/28/22 20:00 36.3 C L 79 20 127/51 L 95 02/28/22 17:14 36.7 C 72 18 131/52 L 95 02/28/22 14:03 84 18 02/28/22 13:47 83 18 Intake/Output Intake/Output: Intake & Output 02/26/22 02/27/22 02/28/22 03/01/22 23:59 23:59 23:59 23:59 Intake Total 2180 2610 1240 1010 Output Total 2450 2250 1750 750 Balance -270 360 -510 260 Meds/Results Medications: Active Medications Generic Name Dose Route Start Last Admin Trade Name Freq PRN Reason Sto
[2022-03-01 12:21] LABS: Glucose Point of Care 168 mg/dl (65-105)
[2022-03-01] MEDS: POTASSIUM CHLORIDE 20 MEQ TABLET PO (12:29)
[2022-03-01] MEDS: cefTRIAXone 2 GM in SODIUM CHLORIDE 0.9% IV 100 ML 125 ML IVPB (12:34)
[2022-03-01 17:01] LABS: Glucose Point of Care 123 mg/dl (65-105)
[2022-03-01 21:01] LABS: Glucose Point of Care 128 mg/dl (65-105)
[2022-03-02] VITALS (13 sets, daily range): BP systolic 115–138; BP diastolic 50–70; PULSE 60–89; RESP 14–24; TEMP 36.5–36.8; O2SAT 91–98
[2022-03-02] MEDS: ALBUTEROL SULFATE NEB 2.5 MG/3 ML INH INHALATION ×3 (02:21→15:05)
[2022-03-02] MEDS: IPRATROPIUM BR 0.02% INH SOLN 0.5 MG/2.5 ML VIAL INHALATION ×3 (02:21→15:06)
[2022-03-02 05:19] LABS: Basophils Absolute Auto 0.1 K/mm3 (0.0-0.1); Basophils Percent Auto 0.5 % (0.2-1.2); Eosinophils Absolute Auto 0.3 K/mm3 (0-0.3); Eosinophils Percent Auto 1.7 % (0-4.4); Hematocrit 34.6 % (37.0-47.0); Hemoglobin 10.5 g/dL (12.0-15.0); Immature Granulocyte Absolute 0.17 K/mm3 (0.00-0.031); Lymphocytes Absolute Auto 1.73 K/mm3 (0.9-3.2); Lymphocytes Percent Auto 10.3 % (18.3-44.2); Mean Corpuscular HGB Conc 30.3 g/dl (32-36); Mean Corpuscular Hemoglobin 24.1 pg (26-34); Mean Corpuscular Volume 79.5 fl (80-100); Monocytes Absolute Auto 0.7 K/mm3 (0.1-0.6); Monocytes Percent Auto 4.3 % (2.6-8.5); Neutrophils Absolute Auto 13.7 K/mm3 (1.3-6.7); Neutrophils Percent Auto 82.2 % (45.5-73.1); Platelet Count Result 349 k/mm3 (150-375); Red Blood Count 4.35 M/mm3 (4.2-5.4); Red Cell Distribution Width 18.5 % (11.5-14.5); White Blood Count 16.7 K/mm3 (4.5-10.0)
[2022-03-02 05:31] LABS: Albumin Level 3.5 g/dL (3.5-5.1); Anion Gap 8 mmol/L (8-16); Blood Urea Nitrogen 20 mg/dL (7-17); Calcium 8.6 mg/dL (8.4-10.2); Carbon Dioxide 24 mmol/L (22-30); Chloride 102 mmol/L (98-107); Estimated CRCL calculation 45 ml/min; Estimated Glomerular Filt Rate 44; Glucose 125 mg/dL (65-110); Phosphorus 3.2 mg/dL (2.5-4.5); Potassium 3.3 mmol/L (3.4-5.0); Sodium 134 mmol/L (137-145)
[2022-03-02 08:03] LABS: Glucose Point of Care 154 mg/dl (65-105)
--- NOTE | 2022-03-02 09:13 | P.PNIM_ITS ---
Progress Note: A&P Assessment and Plan (1) Acute kidney injury: Code(s): N17.9 - Acute kidney failure, unspecified Status: Acute Assessment and Plan: * likely due to sepsis, shock, infection, hypovolemia, rhabdo, and high dose NSAID use * evaluation to date: * renal ultrasound with right kidney atrophy * urine electrolytes non-prerenal (2) Stage 3a chronic kidney disease: Code(s): N18.31 - Chronic kidney disease, stage 3a Status: Chronic Assessment and Plan: * CKD likely due to HTN, diabetes, vascular disease, age, and recurrent UTIs (3) Septic shock: Code(s): A41.9 - Sepsis, unspecified organism; R65.21 - Severe sepsis with septic shock Status: Acute Assessment and Plan: * presumably from UTI and possibly pneumonia * urine and blood cultures with E.coli * On IV Rocephin. Started on 11. Can continue until discharge for total of 10- 14 days (4) COPD exacerbation: Code(s): J44.1 - Chronic obstructive pulmonary disease with (acute) exacerbation Status: Acute Assessment and Plan: * on bronchodilators and completed course of steroids * already on antibiotics as well (5) Elevated troponin: Code(s): R77.8 - Other specified abnormalities of plasma proteins Status: Acute Assessment and Plan: * most likely secondary to shock and sepsis in setting of JUVENAL * however, cannot discount ischemic heart disease * Echo results noted * Cardiology recommendations noted (6) Fall: Code(s): W19.XXXA - Unspecified fall, initial encounter Status: Acute Assessment and Plan: * imaging noted * Head CT without an acute pathology * CT C-spine without fractures . (7) Diabetes mellitus: Code(s): E11.9 - Type 2 diabetes mellitus without complications Status: Acute Assessment and Plan: * follow accucheks * glycemic control Plan pending placement to rehab Subjective Date/time seen: 03/02/22 09:13 No issues at this time Review of Systems Review of Systems: All systems reviewed & are unremarkable except as noted in HPI and below Exam Narrative: General: WD/WN female in NAD Heart: normal S1 and S2; no rub Lungs: coarse breath sounds Abdomen: soft, nontender, nondistended, positive bowel sounds Extremities: no cyanosis or clubbing; no edema Skin: warm and intact Objective Data Vital Signs Vital Signs: Vital Signs - 24 hr 03/01/22 09:44 03/01/22 09:47 03/01/22 14:54 Temperature Pulse Rate 87 74 Respiratory Rate 18 20 Blood Pressure Pulse Oximetry 94 95 Oxygen Delivery Room Air Oxygen Flow Rate 2 03/01/22 14:55 03/01/22 15:11 03/01/22 20:23 Temperature 98.9 F 98.2 F Pulse Rate 82 78 79 Respiratory Rate 16 20 16 Blood Pressure 116/57 L 127/59 L Pulse Oximetry 97 95 Oxygen Delivery Oxygen Flow Rate 03/01/22 20:00 03/01/22 21:53 03/01/22 21:53 Temperature Pulse Rate 79 79 Respiratory Rate 18 18 Blood Pressure Pulse Oximetry 95 96 Oxygen Delivery Nasal Cannula Nasal Cannula Oxygen Flow Rate 2 2 03/01/22 22:10 03/02/22 00:00 03/02/22
--- NOTE | 2022-03-02 09:13 | PM.IMPN ---
Progress Note: A&P Assessment and Plan (1) Acute kidney injury: Code(s): N17.9 - Acute kidney failure, unspecified Status: Acute Assessment and Plan: likely due to sepsis, shock, infection, hypovolemia, rhabdo, and high dose NSAID use evaluation to date: renal ultrasound with right kidney atrophy urine electrolytes non-prerenal (2) Stage 3a chronic kidney disease: Code(s): N18.31 - Chronic kidney disease, stage 3a Status: Chronic Assessment and Plan: CKD likely due to HTN, diabetes, vascular disease, age, and recurrent UTIs (3) Septic shock: Code(s): A41.9 - Sepsis, unspecified organism; R65.21 - Severe sepsis with septic shock Status: Acute Assessment and Plan: presumably from UTI and possibly pneumonia urine and blood cultures with E.coli On IV Rocephin. Started on 11. Can continue until discharge for total of 10-14 days (4) COPD exacerbation: Code(s): J44.1 - Chronic obstructive pulmonary disease with (acute) exacerbation Status: Acute Assessment and Plan: on bronchodilators and completed course of steroids already on antibiotics as well (5) Elevated troponin: Code(s): R77.8 - Other specified abnormalities of plasma proteins Status: Acute Assessment and Plan: most likely secondary to shock and sepsis in setting of JUVENAL however, cannot discount ischemic heart disease Echo results noted Cardiology recommendations noted (6) Fall: Code(s): W19.XXXA - Unspecified fall, initial encounter Status: Acute Assessment and Plan: imaging noted Head CT without an acute pathology CT C-spine without fractures . (7) Diabetes mellitus: Code(s): E11.9 - Type 2 diabetes mellitus without complications Status: Acute Assessment and Plan: [facility] Plan pending placement to rehab Subjective Date/time seen: 03/02/22 09:13 No issues at this time Review of Systems Review of Systems: All systems reviewed & are unremarkable except as noted in HPI and below Exam Narrative: General: WD/WN female in NAD Heart: normal S1 and S2; no rub Lungs: coarse breath sounds Abdomen: soft, nontender, nondistended, positive bowel sounds Extremities: no cyanosis or clubbing; no edema Skin: warm and intact Objective Data Vital Signs Vital Signs: Vital Signs - 24 hr 03/01/22 09:44 03/01/22 09:47 03/01/22 14:54 Temperature Pulse Rate 87 74 Respiratory Rate 18 20 Blood Pressure Pulse Oximetry 94 95 Oxygen Delivery Room Air Oxygen Flow Rate 2 03/01/22 14:55 03/01/22 15:11 03/01/22 20:23 Temperature 98.9 F 98.2 F Pulse Rate 82 78 79 Respiratory Rate 16 20 16 Blood Pressure 116/57 L 127/59 L Pulse Oximetry 97 95 Oxygen Delivery Oxygen Flow Rate 03/01/22 20:00 03/01/22 21:53 03/01/22 21:53 Temperature Pulse Rate 79 79 Respiratory Rate 18 18 Blood Pressure Pulse Oximetry 95 96 Oxygen Delivery Nasal Cannula Nasal Cannula Oxygen Flow Rate 2 2 03/01/22 22:10 03/02/22 00:00 03/02/22 00:48 Temperature 98.1 F Pulse Rate 80 89 80 Respiratory Rate 18 14 24 H Blood Pressure 125/55 L Pulse Oximetry 98 94 Oxygen Delivery BiPAP Oxygen Flow Rate 03/02/22 02:21 03/02/22 02:26 03/02/22 02:35 Temperature Pulse Rate 79 78 78 Respiratory Rate 23 H 21 H 20 Blood Pressure Pulse Oximetry 94 Oxygen Delivery BiPAP Oxygen Flow Rate 03/02/22 05:50 03/02/22 08:44 03/02/22 08:44 Temperature 97.7 F Pulse Rate 60 86 Respiratory Rate 16 18 Blood Pressure 138/60 Pulse Oximetry 91 96 Oxygen Delivery Nasal Cannula Oxygen Flow Rate 2 03/02/22 08:55 Temperature Pulse Rate 88 Respiratory Rate 18 Blood Pressure Pulse Oximetry Oxygen Delivery Oxygen Flow Rate Intake/Output Intake/Output: Intake & Output 02/27/22 02/28/22 03/01/22
[2022-03-02] MEDS: EZETIMIBE 10 MG TABLET PO (09:41)
[2022-03-02] MEDS: NICOTINE (*PBKC) 14 MG PATCH 1 PATCH TRANSDERM (09:41)
[2022-03-02] MEDS: POTASSIUM CITRATE 5 MEQ TAB CR 20 MEQ PO (09:41)
[2022-03-02] MEDS: APIXABAN 5 MG TABLET PO (09:42)
[2022-03-02] MEDS: INDAPAMIDE 1.25 MG TABLET PO (09:42)
[2022-03-02] MEDS: ATORVASTATIN 10 MG TABLET PO (09:42)
[2022-03-02] MEDS: CLOPIDOGREL BISULFATE 75 MG TABLET PO (09:42)
[2022-03-02] MEDS: SERTRALINE HCL 50 MG TABLET 100 MG PO (09:42)
[2022-03-02] MEDS: TOLNAFTATE 1% POWDER 45 GM BTL 1 APPLIC TOPICAL (09:43)
[2022-03-02] MEDS: BETAMETHASONE/CLOTRIMAZOLE CR 15 GM TUBE 1 APPLIC TOPICAL (09:43)
[2022-03-02 11:51] LABS: Glucose Point of Care 133 mg/dl (65-105)
--- NOTE | 2022-03-02 12:59 | PM.DS ---
DS: Admitting Diagnosis Discharge Date 03/02/22 Admitting Diagnosis Generalized weakness, shortness of breath DS: Summary Hospital Course Hospital Course: This is a 71-year-old female patient who was brought in for generalized weakness and shortness of breath as well as the decreased oral intake.? The patient has been feeling weak for the last 2 days.? The patient rolled out of bed was unable to get up off the floor for several hours.? Her white count was 20.7.? Sodium 129.? Chloride 96.? BUN and creatinine 25 and 3.0.? Her GFR is 15.? Her baseline is typically 1.13.? Her lactic initially was 3.5 and is now 3.2.? Total creatinine kinase 1305.? Troponin 5.490 and repeat troponin 2.460.? She was negative for influenza A/B and COVID.? A central line was placed in the emergency room.? She was started on Levophed as well as vasopressor.? The patient was given 3 L of IV fluids.?Central Office Technician has been consulted.? And cardiology consulted for the elevated troponins.? EKG was read as the following: SINUS RHYTHM WITH FIRST DEGREE AV BLOC, INCOMPLETE RIGHT BUNDLE BRANCH BLOCK, BORDERLINE ST ABNORMALITY-ANTEROLATERAL LEADS, BASELINE ARTIFACT- I, II, III, AVR, AVL, ABNORMAL ECG, NO PREVIOUS ECG AVAILABLE FOR COMPARISON Cervical spine CT : no fracture.? Severe cervical spondylosis.? 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 Chest x-ray shows right internal jugular catheter ending in the proximal superior vena cava.? No pneumothorax.? Diffuse lung disease consistent with pneumonia versus atelectasis versus pulmonary edema. The patient was admitted to ICU. Was also given broad-spectrum antibiotics. She initially received Rocephin azithromycin and vancomycin. Nephrology was consulted for JUVENAL. ?JUVENAL was likely due to sepsis, shock, infection, hypovolemia, rhabdomyolysis and high dose NSAID use. renal ultrasound showed right kidney atrophy. Her renal functions have improved now. Patient was restarted on indapamide. Patient underwent an echo: 1. Technically difficult this examination because of patient obesity/definity contrast used. ? 2. Vigorous left ventricular systolic function with grade 1 diastolic noncompliance. ? 3. No ischemic wall motion abnormalities were identified. ? 4. Mildly sclerotic aortic valve which is not stenotic. Patient had urine and blood culture which grew E coli. Rocephin has been continued. Azithromycin discontinued after 5 days. PT and OT were consulted and they recommended rehab. She has been accepted at rehab facility and is being discharged over there for 3 more days of Rocephin to complete 14 days Time Spent with Patient Time attestation: Total time spent providing and/or coordinating discharge services: Exam Narrative: General: WD/WN female in NAD Heart: normal S1 and S2; no rub Lungs: coarse breath sounds Abdomen: soft, nontender, nondistended, positive bowel sounds Extremities: no cyanosis or clubbing; no edema Skin: warm and intact DS: Data Data Completed and Pending Labs on day of discharge: Labs from last 24 hours 03/02/22 03/02/22 03/02/22 11:48 08:00 05:06 WBC RBC Hgb Hct MCV MCH MCHC RDW Plt Count MPV Immature Gran % (Auto) Neut % (Auto) Lymph % (Auto) [place] % (Auto) Eos % (Auto) Baso % (Auto) Lymph # (Auto) [place] # (Auto) Eos # (Auto) Baso # (Auto) Abs Immat Gran (auto) Absolute Neuts (auto) Absolute Nucleated RBC Nucleated RBC % Sodium 134 L Potassium 3.3 L Chloride 102 Carbon Dioxide 24 Anion Gap 8 BUN 20 H Creatinine 1.20 H Estim Creat Clear Calc 45 Estimated GFR 44 L Glucose 125 H POC Capillary Glucose 133 H 154 H Calcium 8.6 Phosphorus 3.2 Albumin 3.5 03/02/22 03/01/22 03/01/22 05:06 20:57 16:56 WBC 16.7 H RBC 4.35 Hgb 10.5 L Hct 34.6 L MCV 79.5 L MCH 24.1 L MCHC 30.3 L RDW 18.5 H Plt C
--- NOTE | 2022-03-02 13:29 | PCPTNOTE ---
Attempted to see patient for PT, however patient refused. Patient reported her was visiting and she wanted to wait until her left.
[2022-03-02 17:01] LABS: EDCOVIDSCREEN Negative (Negative)
[2022-03-02 17:03] LABS: Glucose Point of Care 104 mg/dl (65-105)
== END 2022-03-02 18:04 | DRG 871 ==
LOC: ANHED 18:37 → ANHICU 20:59 → ANHIMU 02-23 13:28 → ANH2MED 02-27 19:49
PROVIDERS: Internal Medicine; Internal Medicine Nephrology; Nurse Practitioner; Admitting Provider Family Medicine; Emergency Provider Preventive Medicine Aerospace Medicine; PCP Family Medicine; Visit Provider Hospitalist
DX: A41.51 Sepsis due to Escherichia coli [E. coli] (principal); I50.43 Acute on chronic combined systolic (congestive) and diastolic (congestive) heart failure; J18.9 Pneumonia, unspecified organism; R65.21 Severe sepsis with septic shock; N17.9 Acute kidney failure, unspecified; E87.1 Hypo-osmolality and hyponatremia; N39.0 Urinary tract infection, site not specified; J44.1 Chronic obstructive pulmonary disease with (acute) exacerbation; I48.92 Unspecified atrial flutter; K80.10 Calculus of gallbladder with chronic cholecystitis without obstruction; J44.0 Chronic obstructive pulmonary disease with (acute) lower respiratory infection; I13.0 Hypertensive heart and chronic kidney disease with heart failure and stage 1 through stage 4 chronic kidney disease, or unspecified chronic kidney disease; Z20.822 Contact with and (suspected) exposure to COVID-19; F32.A Depression, unspecified; F41.9 Anxiety disorder, unspecified; E78.00 Pure hypercholesterolemia, unspecified; F17.210 Nicotine dependence, cigarettes, uncomplicated; G47.33 Obstructive sleep apnea (adult) (pediatric); N18.31 Chronic kidney disease, stage 3a; I48.91 Unspecified atrial fibrillation; R10.9 Unspecified abdominal pain; R06.03 Acute respiratory distress; E11.22 Type 2 diabetes mellitus with diabetic chronic kidney disease; Z79.899 Other long term (current) drug therapy; Z80.1 Family history of malignant neoplasm of trachea, bronchus and lung; Z82.49 Family history of ischemic heart disease and other diseases of the circulatory system; Z79.02 Long term (current) use of antithrombotics/antiplatelets; Z86.73 Personal history of transient ischemic attack (TIA), and cerebral infarction without residual deficits; W06.XXXA Fall from bed, initial encounter
CPT/HCPCS: 36415; 36556; 70450; 71045; 72125; 76705; 76775; 78227; 80053; 80069; 81001; 82436; 82550; 82570; 82948; 83036; 83605; 83690; 83735; 83880; 84100; 84300; 84443; 84484; 85025; 85027; 85999; 86738; 87040; 87077; 87086; 87088; 87186; 87426; 87449; 87502; 87899; 93005; 94003; 94640; 94660; 94668; 96365; 96366; 96367; 96375; 97161; 97165; 97530; 97535; 99285; A9270; A9537; C1751; C8929; C9803; J0456; J0610; J0696; J1815; J1940; J2805; J2930; J3370; J3480; J7030; P9047; Q9957; U0003; U0005

== ENCOUNTER 2022-08-14 13:00 | Outpatient (CLI) | payer MEDICARE, SELFPAY ==
--- NOTE | ~2022-08-14 | XR_ITS ---
Clinical Indication: Chest tightness PA and lateral views of the chest: Comparison: 03/01/2022 Findings: There is a large abnormal density silhouetting the aortic knob and left hilum. Right lung c lear. No pleural effusion or pneumothorax. Bones and soft tissues are unremarkable. Impression: Large abnormal density swelling the aortic knob and left hilum. Findings are suspicious for mass lesi on, most likely neoplasm. Contrast-enhanced chest CT recommended for further evaluation. Reviewed, dictated and finalized at location M. Impression: Large abnormal density swelling the aortic knob and left hilum. Findings are collins spicious for mass lesion, most likely neoplasm. Contrast-enhanced chest CT lorenzo mmended for further evaluation.
--- NOTE | 2022-08-14 14:03 | ECG_ITS ---
Measurements Intervals [place] Rate: 74 P: 69 [place]: 194 QRS: 78 QRSD: 96 T: 24 QT: 398 QTc: 442 Interpretive Statements SINUS RHYTHM POSSIBLE LEFT ATRIAL ENLARGEMENT INCOMPLETE RIGHT BUNDLE BRANCH BLOCK ST-T WAVE ABNORMALITY IN ANTEROLAT/INF LEADS- CONSIDER ISCHEMIA BASELINE ARTIFACT- I, II, III, AVL, AVF ABNORMAL ECG COMPARED TO ECG 02/21/2022 18:38:27 SINUS RHYTHM NOW PRESENT Electronically Signed On 08-14-2022 14:23:36 CDT by John Sherman D.O.
[2022-08-14 14:18] LABS: Basophils Absolute Auto 0.1 K/mm3 (0.0-0.1); Basophils Percent Auto 0.6 % (0.2-1.2); Eosinophils Absolute Auto 0.2 K/mm3 (0-0.3); Eosinophils Percent Auto 2.8 % (0-4.4); Hemoglobin 11.8 g/dL (12.0-15.0); Immature Granulocyte Absolute 0.04 K/mm3 (0.00-0.031); Immature Granulocyte Percent A 0.5 % (0-0.5); Lymphocytes Percent Auto 23.3 % (18.3-44.2); Mean Corpuscular HGB Conc 30.3 g/dl (32-36); Mean Corpuscular Hemoglobin 24.6 pg (26-34); Mean Corpuscular Volume 81.4 fl (80-100); Mean Platelet Volume 8.8 fl (7.4-10.4); Monocytes Absolute Auto 0.8 K/mm3 (0.1-0.6); Monocytes Percent Auto 9.3 % (2.6-8.5); Neutrophils Absolute Auto 5.5 K/mm3 (1.3-6.7); Neutrophils Percent Auto 63.5 % (45.5-73.1); Platelet Count Result 275 k/mm3 (150-375); Red Blood Count 4.79 M/mm3 (4.2-5.4); Red Cell Distribution Width 17.2 % (11.5-14.5); White Blood Count 8.6 K/mm3 (4.5-10.0)
[2022-08-14 14:23] LABS: Alanine Aminotransferase 25 U/L (6-35); Albumin Level 4.4 g/dL (3.5-5.1); Alkaline Phosphatase 87 U/L (38-126); Anion Gap 8 mmol/L (8-16); Aspartate Amino Transferase 33 U/L (14-36); Bilirubin,Total 0.6 mg/dL (0.2-1.3); Blood Urea Nitrogen 22 mg/dL (7-17); Calcium 9.5 mg/dL (8.4-10.2); Carbon Dioxide 23 mmol/L (22-30); Chloride 104 mmol/L (98-107); Estimated Glomerular Filt Rate 37; Glucose 97 mg/dL (65-110); Potassium 4.4 mmol/L (3.4-5.0); Sodium 135 mmol/L (137-145)
== END 2022-08-14 13:01 | disposition home or self-care (01) ==
PROVIDERS: PCP Family Medicine; Visit Provider Physician Assistant Medical
DX: E78.2 Mixed hyperlipidemia (principal); R53.83 Other fatigue; R06.00 Dyspnea, unspecified; R07.89 Other chest pain; I45.10 Unspecified right bundle-branch block
CPT/HCPCS: 36415; 71046; 80053; 85025; 93005

== ENCOUNTER 2022-09-15 10:07 | Outpatient (CLI) | payer MEDICARE, SELFPAY ==
--- NOTE | ~2022-09-15 | CT_ITS ---
Clinical Indication: Lung cancer CT Scan of the Chest with Contrast: Technique: Contiguous sections were acquired throughout the chest after intravenous administration of 75 cc of Omnipaque 350. Dose reduction technique was used on this scan by utilizing automated exposu re control and iterative reconstruction technique. The dose-length product (DLP) was 984.14 mGy-cm. COMPARISON: 12/27/2020 Findings: There is a large soft tissue mass extensively involving the central upper mediastinum, extending into the left hilum and left upper lobe. Mass overall measures up to approximately 9.4 x 7.1 x 9.0 cm in maximal dimensions. There is extensive encasement of the left mainstem bronchus, as well as the left upper and lower lobe bronchi, as well as extensive encasement of the left pulmonary artery, and to a lesser degree the right main pulmonary artery. There is complete cut off of the left upper lobe bronc hus with associated complete left upper lobe atelectasis. Left lower lobe remains well expanded despi te marked narrowing of the left lower lobe bronchus by the mass lesion. Mass effect results in trache al deviation to the right at the level of the aortic arch. There are atherosclerotic calcifications of the aorta and coronary arteries. No aortic aneurysm or di ssection. No pulmonary embolus identified. Right lung is clear. There is probable mild to moderate emphysema. Images through the upper abdomen reveal 1.9 cm left adrenal nodule, not clearly evident on prior exam . Impression: 9.4 x 7.1 x 9.0 cm mass extensively involving the upper central mediastinum, with extension to the le ft hilum and left upper lobe. This is consistent with malignancy, and tissue sampling is advised to e stablish a definite histologic diagnosis. There is complete left upper lobe atelectasis related to obstruction of the left upper lobe bronchus by the aforementioned mass. There is also significant narrowing of the left lower lobe bronchus, mode rate narrowing of the left mainstem bronchus, and extensive encasement of the left pulmonary arteries , with tracheal deviation to the right. 1.9 cm left adrenal nodule. Metastasis is a consideration until until proven otherwise. Consider MR t o evaluate for adenoma. Mild to moderate emphysema. Reviewed, dictated and finalized at location M. Impression: 9.4 x 7.1 x 9.0 cm mass extensively involving the upper central mediastinum, wi th extension to the left hilum and left upper lobe. This is consistent with mal ignancy, and tissue sampling is advised to establish a definite histologic diag nosis. There is complete left upper lobe atelectasis related to obstruction of the lef t upper lobe bronchus by the aforementioned mass. There is also significant kathryn rowing of the left lower lobe bronchus, moderate narrowing of the left mainstem bronchus, and extensive encasement of the left pulmonary arteries, with trache al deviation to the right. 1.9 cm left adrenal nodule. Metastasis is a consideration until until proven ot herwise. Consider MR to evaluate for adenoma. Mild to moderate emphysema.
[2022-09-15 10:37] LABS: Estimated Glomerular Filt Rate 34
== END 2022-09-15 10:08 | disposition home or self-care (01) ==
PROVIDERS: PCP Family Medicine; Visit Provider Physician Assistant Medical
DX: R91.8 Other nonspecific abnormal finding of lung field (principal); J43.9 Emphysema, unspecified; E27.8 Other specified disorders of adrenal gland
CPT/HCPCS: 71260; Q9967

== ENCOUNTER 2022-09-21 13:53 | Outpatient (CLI) | payer MEDICARE, SELFPAY ==
--- NOTE | ~2022-09-21 | CT_ITS ---
EXAMINATION: CT abdomen pelvis wo/w con DATE: 09/21/2022 14:46 INDICATION: Adrenal mass TECHNIQUE: Computed tomography (CT) of the abdomen was performed without intravenous contrast. CT of the abdomen and pelvis was then performed with a total of 100 mL Omnipaque 350 intravenous contrast. Postcontrast delayed CT images of the abdomen were then obtained. The dose-length product (DLP) was 2 861.72 mGy-cm. Automated exposure control and iterative reconstruction technique were employed. COMPARISON: 04/14/2011 FINDINGS: There is moderate emphysema of the visualized lung bases. There is a 4.4 cm mass in the cau date lobe of the liver. The spleen, pancreas and gallbladder are normal. There is a 2.0 cm mass of th e left adrenal gland with noncontrast attenuation of 47 Hounsfield units. Absolute washout is 107% an d relative washout is 25%. There is a 1.2 cm nodule of the right adrenal gland with indeterminate rel ative washout. There are areas of cortical scarring in the kidneys. Calcified atherosclerosis is note d. There is an umbilical hernia containing a short segment of the nonobstructed transverse colon. The re is severe lumbar spondylosis. IMPRESSION: 1. Caudate mass of the liver, consistent with metastatic disease. 2. Suspicious but indeterminate bilateral adrenal masses. If further evaluation is desired in light o f liver metastasis, consider adrenal protocol MRI. Reviewed, dictated and finalized at location A. IMPRESSION: 1. Caudate mass of the liver, consistent with metastatic disease. 2. Suspicious but indeterminate bilateral adrenal masses. If further evaluation is desired in light of liver metastasis, consider adrenal protocol MRI.
== END 2022-09-21 13:54 | disposition home or self-care (01) ==
PROVIDERS: PCP Family Medicine; Visit Provider Family Medicine
DX: E27.8 Other specified disorders of adrenal gland (principal); R91.8 Other nonspecific abnormal finding of lung field; R16.0 Hepatomegaly, not elsewhere classified
CPT/HCPCS: 74178; Q9967